=== PATIENT | female | born 1945 | race Caucasian/White ===

== ENCOUNTER 2023-12-22 12:55 | Outpatient (OUT) | payer MEDICARE, OTHER, SELFPAY ==
[2023-12-22 13:43] LABS: Basophils Absolute Auto 0.1 10^3/uL (0.0-0.1); Basophils Percent Auto 0.8 % (0.2-2.0); Eosinophils Absolute Auto 0.2 10^3/uL (0.0-0.7); Eosinophils Percent Auto 1.8 % (0.9-7.0); Hematocrit 42.7 % (36.0-48.0); Hemoglobin 14.2 g/dL (12.0-16.0); Immature Granulocytes Abs Auto 0.02 10^3/uL (0.00-0.03); Immature Granulocytes Pct Auto 0.2 % (0.0-0.5); Lymphocytes Absolute Auto 3.5 10^3/uL (1.2-3.8); Lymphocytes Percent Auto 36.8 % (20.5-60.0); Mean Corpuscular HGB Conc 33.3 g/dL (29.9-35.2); Mean Corpuscular Hemoglobin 29.9 pg (26.7-34.0); Mean Corpuscular Volume 89.9 fL (81.0-99.0); Mean Platelet Volume 10.5 fL (9.5-13.5); Monocytes Absolute Auto 0.6 10^3/uL (0.3-0.8); Monocytes Percent Auto 6.3 % (1.7-12.0); Neutrophils Absolute Auto 5.2 10^3/uL (1.4-6.5); Neutrophils Percent Auto 54.1 % (43.0-75.0); Platelet Count 228 10^3/uL (150-450); Red Blood Count 4.75 10^6/uL (4.20-5.40); Red Cell Distribution Width 12.7 % (11.0-15.0); White Blood Count 9.6 10^3/uL (4.0-11.0)
[2023-12-22 14:02] LABS: Alanine Aminotransferase 37 U/L (14-59); Albumin Globulin Ratio 0.8; Albumin Level 3.6 g/dL (3.4-5.0); Alkaline Phosphatase 74 U/L (46-116); Anion Gap 15.3; Aspartate Amino Transferase 32 U/L (15-37); BUN Creatinine Ratio 12.9; Bilirubin Direct 0.2 mg/dL (0.0-0.2); Bilirubin Total 0.9 mg/dL (0.2-1.0); Calcium 9.3 mg/dL (8.5-10.1); Carbon Dioxide 24.4 mmol/L (21.0-32.0); Chloride 102 mmol/L (98-107); Chol HDL Ratio 5.9; Cholesterol 289 mg/dL (<=200); Estimated GFR (African America >60 (>=60); Estimated GFR (Non-African Ame >60 (>=60); Globulin 4.3 g/dL; Glucose 104 mg/dL (74-106); HDL Cholesterol 49 mg/dL (40-60); Potassium 3.7 mmol/L (3.5-5.1); Sodium 138 mmol/L (136-145); Thyroid Stimulating Hormone 0.938 uIU/mL (0.358-3.740); Total Protein 7.9 g/dL (6.4-8.2); Triglycerides 211 mg/dL (<=150); VLDL CHOLESTEROL 42.2 mg/dL
[2023-12-22 14:11] LABS: Microalbumin Urine Random 1.7 mg/dL (<=30.0)
[2023-12-22 14:19] LABS: Estimated Average Glucose 111 mg/dL; Glycohemoglobin A1C 5.5 % (4.5-6.2)
== END 2023-12-22 12:56 | disposition home or self-care (01) ==
LOC: LAB 13:00
PROVIDERS: PCP Family Medicine; Visit Provider Family Medicine
DX: E78.5 Hyperlipidemia, unspecified (principal); E11.65 Type 2 diabetes mellitus with hyperglycemia; Z79.899 Other long term (current) drug therapy; E66.9 Obesity, unspecified
CPT/HCPCS: 36415; 80048; 80061; 80076; 82043; 83036; 84443; 85025

== ENCOUNTER 2023-12-25 14:00 | Outpatient (OUT) | payer MEDICARE, OTHER, SELFPAY ==
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
--- OUTSIDE RECORDS SUMMARY | 2023-12-25 14:24 | XMS_ITS | CCD ---
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 Patient stated that she has been under a lot of stress lately. Patient stated her son lives with her and recently got in trouble with the law and is incarcerated currently with his hearing scheduled to take place today. Patient stated that due to the legal trouble, his ex- received emergency custody of her grandchildren ages 13 and 14 whom her son has had custody of since . Patient stated that she is currently dealing qith alot, but that her depression medication and therapist are helpful. Patient denied SI or HI. Patient denied any further needs at this time. SW will remain available as needed. Normal [facility] Message from Medicareon Message from Medicare [id number] 1 [id number] 50#[id number] Normal [facility] PT & PTTon 01-22-2023 aPTT Coag (PPP) [Time] 31.6 second(s) Normal 25.1-36.5 [facility] Comment on above: Result Comment: Para meter 15 days - 4 weeks 1 - 5 months 6 - 11 months 1 - 5 years 6 - 10 years 11 - 17 years PTT Mean: 35.4 (27.6-45.6) Mean: 33.5 (24.8-40.7) Mean: 32.4 (25.1-40.7) Mean: 31.6 (24.0-39.2) Mean: 31.6 (26.9-38.7) Mean: 31.0 (24.6-38.4) Pediatric Reference ranges were obtained from a study by Siddhartha Jimenez et al. prepared from 1437 samples obtained at 7 different centers using the same coagulation reagent and instrumentation as [facility]. Currently there are no coagulation studies available worldwide for children to 14 days, and no normal ranges. Heparin therapeutic range (represented by Anti-Factor Xa activity of 0.2 - 0.4 U/mL) corresponds to PTT of 56.6 - 109.0 sec. Performed By: #### 1 [id number], 28658142, 7696120, 4794187, 1932279 ####[facility] [address] [place] [address] INR Coag (PPP) [Relative time] 1.2 {INR} Invalid Interpretation Code [facility] Comment on above: Result Comment: INR results are specifically intended to assess patients stabilized on long-term Anticoagulation therapy suggested INR?s ?Less Intensive Anticoagulation? 2.0 ? 3.0 Conventional Range 3.0 ? 4.5 Performed By: #### 1 3963079, 08471438, 9723282, 9830636, 8221636 ####[facility] [address] [place] [address] PT Coag (PPP) [Time] 13.4 second(s) High 9.4-12.5 [facility] Comment on above: Result Comment: 15 d ays - 4 weeks 1 - 5 months 6 -11 months 1-5 years 6-10 years 11 -17 years Mean: 11.2 (9.5-12.6) Mean: 11.0 (9.7-12.8) Mean: 11.0 (9.8-13.0) Mean: 11.3 (9.9-13.4) Mean: 11.7 (10.0-14.6) Mean: 11.8 (10.0 - 14.1) Pediatric Reference ranges were obtained from a study by Siddhartha Jimenez et al. prepared from 1437 samples obtained at 7 different centers using the same coagulation reagent and instrumentation as [facility]. Currently there are no coagulation studies available worldwide for children to 14 days, and no normal ranges. Performed By: #### 1 6784511, 46009614, 3535252, 3385150, 9257678 ####[facility] [address] [place] [address] eGFRon 01-22-2023 GFR/1.73 sq M.predicted among non-blacks MDRD (S/P/Bld) [Vol rate/Area] 66 mL/min/1.73 m2 Normal >=59 [facility] Comment on above: Order Comment: Order added by Discern Expert. 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 Kidney failure is indicated at less than 15 mL/min/1.73m2. Performed By: #### 1 6166770, 63059046, 5084472, 5991712, 3935842 ####[facility] [address] [place] [address] ABO/Rhon 01-21-2023 ABO/Rh Positive Invalid Interpretation Code [facility] Comment on above: Performed By: #### 1 [id number], 8145723, 10354044, 24899950 ####[facility] [address] [place] [address] ABO/Rh History Checkon 01-21 ABO/Rh History Check Type verified by second s Normal [facility] Comment on above: Performed By: #### 1 5347019, 4257901, 54424244, 43958399 ####[facility] [address] [place] [address] ABO/Rh Retypeon 01-21-2023 ABO/Rh Retype Interp Positive Invalid Interpretation Code [facility] Comment on above: Performed By: #### 1 5450562, 5626390, 1660807, 8635437, 8591291, 3959046 #### [facility] [address] [place] [address] ABSCon 01-21-2023 ABSC Gel Interp Negative Normal [facility] Comment on above: Order Comment: Pt is in CT right now, I will keep checking for her to come back. mlc 01/21/2023 14:24:12 EDT Performed By: #### 1 4973063, 4608177, 97256614, 77185400 ####[facility] [address] [place] [address] Auto Diffon 01-21-2023 Basophils/100 WBC (Bld) 0.4 % Normal 0.0-2.0 [facility] Comment on above: Order Comment: Order added by Discern Expert. Performed By: #### 1 5492406, 9195748, 0610745, 4586820, 3402191, 7779410 #### [facility] [address] [place] [address] Basophils/Leukocytes Auto (Bld) [Pure # fraction] 0.0 E9/L Normal 0.0-0.2 [facility] Comment on above: Order Comment: Order added by Discern Expert. Performed By: #### 1 8992470, 1131689, 3083790, 5055712, 3527587, 5268027 #### [facility] [address] [place] [address] Eosinophils/100 WBC (Bld) 2.0 % Normal 0.0-8.0 [facility] Comment on above: Order Comment: Order added by Discern Expert. Performed By: #### 1 5246234, 9973600, 9304855, 2563851, 7420268, 7402879 #### [facility] [address] [place] [address] Eosinophils/Leukocytes Auto (Bld) [Pure # fraction] 0.2 E9/L Normal 0.0-0.5 [facility] Comment on above: Order Comment: Order added by Discern Expert. Performed By: #### 1 0346543, 7698961, 6023270, 9323672, 5246114, 2338050 #### [facility] [address] [place] [address] Lymphocytes/100 WBC (Bld) 28.2 % Normal 14.0-50.0 [facility] Comment on above: Order Comment: Order added by Discern Expert. Performed By: #### 1 8512675, 4795041, 0995159, 3781840, 3219947, 2994521 #### [facility] [address] [place] [address] Lymphocytes/Leukocytes Auto (Bld) [Pure # fraction] 2.4 E9/L Normal 1.0-4.0 [facility] Comment on above: Order Comment: Order added by Discern Expert. Performed By: #### 1 7101393, 1558312, 1874340, 7468547, 8567352, 3784706 #### [facility] [address] [place] [address] Monocytes/100 WBC (Bld) 7.1 % Normal 4.0-14.0 [facility] Comment on above: Order Comment: Order added by Discern Expert. Performed By: #### 1 5493931, 3106857, 3199454, 0779033, 4087639, 0210998 #### [facility] [address] [place] [address] Monocytes/Leukocytes Auto (Bld) [Pure # fraction] 0.6 E9/L Normal 0.2-1.0 [facility] Comment on above: Order Comment: Order added by May Expert. Performed By: #### 1 3740779, 3121998, 3240376, 0858824, 1785534, 8666038 #### [facility] [address] [place] [address] Neutrophils/100 WBC (Bld) 62.3 % Normal 36.0-75.0 [facility] Comment on above: Order Comment: Order added by May Expert. Performed By: #### 1 3177094, 9986913, 8458709, 5904919, 4525204, 8356496 #### [facility] [address] [place] [address] Neutrophils/Leukocytes Auto (Bld) [Pure # fraction] 5.4 E9/L Normal 2.0-7.5 [facility] Comment on above: Order Comment: Order added by May Expert. Performed By: #### 1 6208109, 4981942, 7268157, 3209517, 1792620, 1868686 #### [facility] [address] [place] [address] Basophils/100 WBC (Bld) 0.9 % Normal 0.0-2.0 [facility] Comment on above: Order Comment: Order Added by May Expert. Performed By: #### 1 0931251, 8302828, 9071829, 4152564, 4326283, 6058921 #### [facility] [address] [place] [address] Basophils/Leukocytes Auto (Bld) [Pure # fraction] 0.1 E9/L Normal 0.0-0.2 [facility] Comment on above: Order Comment: Order Added by May Expert. Performed By: #### 1 7872090, 8570678, 2707950, 2561824, 1188006, 3301098 #### [facility] [address] [place] [address] Eosinophils/100 WBC (Bld) 3.2 % Normal 0.0-8.0 [facility] Comment on above: Order Comment: Order Added by May Expert. Performed By: #### 1 7165806, 4999340, 7439115, 2003405, 1034740, 8039762 #### [facility] [address] [place] [address] Eosinophils/Leukocytes Auto (Bld) [Pure # fraction] 0.2 E9/L Normal 0.0-0.5 [facility] Comment on above: Order Comment: Order Added by May Expert. Performed By: #### 1 7409955, 6416084, 8089804, 5953677, 4130588, 1129266 #### [facility] [address] [place] [address] Lymphocytes/100 WBC (Bld) 41.0 % Normal 14.0-50.0 [facility] Comment on above: Order Comment: Order Added by Discern Expert. Performed By: #### 1 3201700, 3567161, 1082448, 5671039, 3486764, 5226329 #### [facility] [address] [place] [address] Lymphocytes/Leukocytes Auto (Bld) [Pure # fraction] 2.8 E9/L Normal 1.0-4.0 [facility] Comment on above: Order Comment: Order Added by May Expert. Performed By: #### 1 3281595, 2988521, 4883423, 8852083, 1933688, 7892992 #### [facility] [address] [place] [address] Monocytes/100 WBC (Bld) 6.2 % Normal 4.0-14.0 [facility] Comment on above: Order Comment: Order Added by Discern Expert. Performed By: #### 1 2720512, 6593535, 1546032, 4295717, 3928877, 6351929 #### [facility] [address] [place] [address] Monocytes/Leukocytes Auto (Bld) [Pure # fraction] 0.4 E9/L Normal 0.2-1.0 [facility] Comment on above: Order Comment: Order Added by Discern Expert. Performed By: #### 1 1897571, 0007235, 3919414, 6182588, 8723622, 6721179 #### [facility] [address] [place] [address] Neutrophils/100 WBC (Bld) 48.7 % Normal 36.0-75.0 [facility] Comment on above: Order Comment: Order Added by Discern Expert. Performed By: #### 1 6997090, 7894769, 0318374, 6114276, 8284674, 4264759 #### [facility] [address] [place] [address] Neutrophils/Leukocytes Auto (Bld) [Pure # fraction] 3.3 E9/L Normal 2.0-7.5 [facility] Comment on above: Order Comment: Order Added by Discern Expert. Performed By: #### 1 1872956, 1614673, 1831612, 1136791, 2201607, 8467635 #### [facility] [address] [place] [address] BLOOD BANKOrdered By: Ana Paula Rothman on 01-21-2023 ABO/Rh Interp Positive Invalid Interpretation Code [facility] BB Subsection ABSC Gel Interp Negative (01/21/23 3:27 PM) Normal [facility] BB Subsection BMPon 01-21-2023 Creatinine [Mass/Vol] 0.7 mg/dL Normal 0.5-1.3 [facility] Comment on above: Performed By: #### 1 4328778, 3190536, 9402203, 4650209, 0682886, 6332828 #### [facility] [address] [place] [address] Urea nitrogen [Mass/Vol] 8 mg/dL Normal 5-21 [facility] Comment on above: Performed By: #### 1 5451850, 7966195, 4484487, 2913117, 0892939, 2996248 #### [facility] [address] [place] [address] Urea nitrogen/Creatinine [Mass ratio] 11 No Units Normal 10-20 [facility] Comment on above: Performed By: #### 1 4282440, 2695112, 1098185, 3759652, 9079204, 5565017 #### [facility] [address] [place] [address] Anion gap [Moles/Vol] 10 mmol/L Normal 6-16 [facility] Comment on above: Performed By: #### 1 6805967, 0548681, 6885529, 7074165, 4238627, 2265217 #### [facility] [address] [place] [address] Calcium [Mass/Vol] 9.4 mg/dL Normal 8.9-11.1 [facility] Comment on above: Performed By: #### 1 3980331, 1992912, 6713453, 8605951, 0114423, 0555992 #### [facility] [address] [place] [address] Chloride [Moles/Vol] 106 mmol/L Normal 101-111 [facility] Comment on above: Performed By: #### 1 4810528, 7807475, 7013962, 7755529, 6501609, 4824603 #### [facility] [address] [place] [address] CO2 [Moles/Vol] 24 mmol/L Normal 21-31 [facility] Comment on above: Performed By: #### 1 1751966, 1474443, 9835976, 5395574, 5343424, 5026571 #### [facility] [address] [place] [address] Glucose [Mass/Vol] 113 mg/dL Normal 55-199 [facility] Comment on above: Result Comment: If t his glucose result represents a fasting glucose, interpretation should refer to the following reference range: 55-99 mg/dL Performed By: #### 1 2828490, 1602127, 1342653, 2137134, 6311620, 9030655 #### [facility] [address] [place] [address] Potassium [Moles/Vol] 4.0 mmol/L Normal 3.5-5.3 [facility] Comment on above: Performed By: #### 1 0177019, 0123611, 4954544, 7517166, 5895260, 1752397 #### [facility] [address] [place] [address] Sodium [Moles/Vol] 136 mmol/L Normal 135-145 [facility] Comment on above: Performed By: #### 1 9940753, 1146573, 9329925, 7123107, 0390542, 4969223 #### [facility] [address] [place] [address] Anion gap [Moles/Vol] 11 mmol/L Normal 6-16 [facility] Comment on above: Performed By: #### 1 7777076, 6581925, 3334388, 8689212, 7092115, 1865021 #### [facility] [address] [place] [address] Calcium [Mass/Vol] 8.9 mg/dL Normal 8.9-11.1 [facility] Comment on above: Performed By: #### 1 8843210, 8962484, 7353824, 8763565, 9437851, 4019807 #### [facility] [address] [place] [address] Chloride [Moles/Vol] 108 mmol/L Normal 101-111 [facility] Comment on above: Performed By: #### 1 7347820, 8310257, 3441587, 9257091, 5744477, 0311049 #### [facility] [address] [place] [address] CO2 [Moles/Vol] 22 mmol/L Normal 21-31 [facility] Comment on above: Performed By: #### 1 2505957, 9373468, 2590648, 8653210, 6030282, 6751059 #### [facility] [address] [place] [address] Creatinine [Mass/Vol] 0.7 mg/dL Normal 0.5-1.3 [facility] Comment on above: Performed By: #### 1 1339777, 4719562, 7286517, 4435508, 7453844, 8346155 #### [facility] [address] [place] [address] Glucose [Mass/Vol] 101 mg/dL Normal 55-199 [facility] Comment on above: Result Comment: If t his glucose result represents a fasting glucose, interpretation should refer to the following reference range: 55-99 mg/dL Performed By: #### 1 2019226, 1080644, 4031559, 6046243, 1760350, 0926467 #### [facility] [address] [place] [address] Potassium [Moles/Vol] 3.7 mmol/L Normal 3.5-5.3 [facility] Comment on above: Performed By: #### 1 8784291, 6381278, 2140897, 4397949, 8342777, 7856479 #### [facility] [address] [place] [address] Sodium [Moles/Vol] 137 mmol/L Normal 135-145 [facility] Comment on above: Performed By: #### 1 7012478, 9887974, 9096748, 5141346, 7036809, 6400679 #### [facility] [address] [place] [address] Urea nitrogen [Mass/Vol] 9 mg/dL Normal 5-21 [facility] Comment on above: Performed By: #### 1 9594966, 8587379, 6339329, 3782013, 2722386, 3745215 #### [facility] [address] [place] [address] Urea nitrogen/Creatinine [Mass ratio] 13 No Units Normal 10-20 [facility] Comment on above: Performed By: #### 1 6803515, 8892450, 3004930, 6233997, 1176935, 1616502 #### [facility] [address] [place] [id number] Blood Bank ID#on 01-21-2023 BBID# [id number] Invalid Interpretation Code [facility] Comment on above: Performed By: #### 1 4193310, 5694668, 83441667, 08074194 ####[facility] [address] [place] [address] CBC w/ Auto Diffon Erythrocyte distribution width (RBC) [Ratio] 13.2 % Normal 10.9-14.2 [facility] Comment on above: Performed By: #### 1 5479834, 3532542, 0460021, 8623890, 9333552, 9634492 #### [facility] [address] [place] [address] Hematocrit (Bld) [Volume fraction] 41.0 % Normal 34.0-46.0 [facility] Comment on above: Performed By: #### 1 8308001, 1407253, 4883820, 2082874, 0737703, 9927041 #### [facility] [address] [place] [address] Hemoglobin (Bld) [Mass/Vol] 13.6 g/dL Normal 12.0-16.0 [facility] Comment on above: Performed By: #### 1 5083290, 3973212, 1225992, 2630509, 3149970, 3007623 #### [facility] [address] [place] [address] MCH (RBC) [Entitic mass] 29.8 pg Normal 27.0-34.0 [facility] Comment on above: Performed By: #### 1 5726683, 3134270, 9828798, 1953450, 1676904, 5208196 #### [facility] [address] [place] [address] MCHC (RBC) [Mass/Vol] 33.1 g/dL Normal 31.4-36.0 [facility] Comment on above: Performed By: #### 1 0465424, 1990379, 5081712, 0135221, 8482554, 7688985 #### [facility] [address] [place] [address] MCV (RBC) [Entitic vol] 90.0 fL Normal 80.0-100.0 [facility] Comment on above: Performed By: #### 1 9520073, 7057714, 4784551, 6437130, 7317194, 3951287 #### [facility] [address] [place] [address] Platelet mean volume (Bld) [Entitic vol] 8.8 fL Normal 6.4-10.8 [facility] Comment on above: Performed By: #### 1 5580530, 9919896, 6288858, 8711944, 9653552, 7124948 #### [facility] [address] [place] [address] Platelets (Bld) [#/Vol] 187.0 E9/L Normal 150.0-500.0 [facility] Comment on above: Performed By: #### 1 8754184, 5606744, 4615256, 1477092, 5206502, 9906119 #### [facility] [address] [place] [address] RBC (Bld) [#/Vol] 4.6 E12/L Normal 4.3-5.9 [facility] Comment on above: Performed By: #### 1 4284848, 9752002, 5120369, 6297688, 4797160, 1298067 #### [facility] [address] [place] [address] WBC corrected for nucl RBC Auto (Bld) [#/Vol] 8.6 E9/L Normal 4.0-11.0 [facility] Comment on above: Result Comment: Slid e reviewed by TLP. Performed By: #### 1 8097382, 3728534, 0514136, 2217273, 1734833, 1575572 #### [facility] [address] [place] [address] Erythrocyte distribution width (RBC) [Ratio] 13.3 % Normal 10.9-14.2 [facility] Comment on above: Performed By: #### 1 0722747, 3662616, 2424460, 4412747, 5335176, 8906620 #### [facility] [address] [place] [address] Hematocrit (Bld) [Volume fraction] 40.0 % Normal 34.0-46.0 [facility] Comment on above: Performed By: #### 1 1808436, 0267786, 9996614, 8788459, 8954801, 7872345 #### [facility] [address] [place] [address] Hemoglobin (Bld) [Mass/Vol] 13.3 g/dL Normal 12.0-16.0 [facility] Comment on above: Performed By: #### 1 4155160, 1664769, 5790075, 0668089, 7204744, 8678656 #### [facility] [address] [place] [address] MCH (RBC) [Entitic mass] 29.6 pg Normal 27.0-34.0 [facility] Comment on above: Performed By: #### 1 0016295, 9358024, 8955753, 6546398, 5302979, 3095408 #### [facility] [address] [place] [address] MCHC (RBC) [Mass/Vol] 33.2 g/dL Normal 31.4-36.0 [facility] Comment on above: Performed By: #### 1 0483452, 6279817, 4344095, 8834457, 7670532, 8481596 #### [facility] [address] [place] [address] MCV (RBC) [Entitic vol] 89.0 fL Normal 80.0-100.0 [facility] Comment on above: Performed By: #### 1 6235555, 1880866, 0504380, 8934619, 1682478, 1749198 #### [facility] [address] [place] [address] Platelet mean volume (Bld) [Entitic vol] 9.2 fL Normal 6.4-10.8 [facility] Comment on above: Performed By: #### 1 6336570, 5241251, 4798062, 2571337, 9306571, 7952635 #### [facility] [address] [place] [address] Platelets (Bld) [#/Vol] 201.0 E9/L Normal 150.0-500.0 [facility] Comment on above: Performed By: #### 1 0582916, 8231098, 8368050, 0816870, 3139813, 9579439 #### [facility] [address] [place] [address] RBC (Bld) [#/Vol] 4.5 E12/L Normal 4.3-5.9 [facility] Comment on above: Performed By: #### 1 [id number] #### [facility] [address] [place] [id number] WBC corrected for nucl RBC Auto (Bld) [#/Vol] 6.7 E9/L Normal 4.0-11.0 [facility] Comment on above: Performed By: #### 1 [id number], [id number] #### [facility] [address] [place] [id number] CHEMISTRYOrdered By: SYSTEM SYSTEM on 01-21-2023 Amphetamines Screen method >1000 ng/mL Ql (U) Negative 6 (01/21/23 4:06 PM) Normal Negative [facility] Comment on above: Interpretive Data: N egative Cutoff: <1000 ng/mL Barbiturates Screen Ql (U) Negative 7 (01/21/23 4:06 PM) Normal Negative [facility] Comment on above: Interpretive Data: N egative Cutoff: <200 ng/mL Benzodiazepines Ql (U) Negative 1 (01/21/23 4:06 PM) Normal Negative [facility] Comment on above: Interpretive Data: N egative Cutoff: <200 ng/mL Cocaine Ql (U) Negative 2 (01/21/23 4:06 PM) Normal Negative [facility] Comment on above: Interpretive Data: N egative Cutoff: <300 ng/mL Opiates Screen Ql (U) Negative 3 (01/21/23 4:06 PM) Normal Negative [facility] Comment on above: Interpretive Data: N egative Cutoff: <300 ng/mL Phencyclidine Screen method >25 ng/mL Ql (U) Negative 4 (01/21/23 4:06 PM) Normal Negative [facility] Comment on above: Interpretive Data: N egative Cutoff: <25 ng/mL These drug screen results are to be used for medical (i.e., treatment) purposes only. Unconfirmed drug screening results must not be used for non-medical purposes (e.g., employment testing, legal testing). Tetrahydrocannabinol Screen method >50 ng/mL Ql (U) Negative 5 (01/21/23 4:06 PM) Normal Negative [facility] Comment on above: Interpretive Data: N egative Cutoff: <50 ng/mL Albumin [Mass/Vol] 4.0 g/dL Normal 3.3 - 5.0 gm/dL [facility] Albumin/Globulin [Mass ratio] 1.0 {ratio} Low 1.1 - 2.2 [facility] ALP [Catalytic activity/Vol] 61 [iU]/d Normal 21 - 98 Int._Unit/L [facility] ALT No additional P-5'-P [Catalytic activity/Vol] 32 [iU]/d Normal 6 - 46 Int._Unit/L [facility] Anion gap [Moles/Vol] 10 mmol/L Normal 6 - 16 mEq/L [facility] AST [Catalytic activity/Vol] 44 [iU]/d High 5 - 43 Int._Unit/L [facility] Bilirubin [Mass/Vol] 0.8 mg/dL Normal 0.0 - 1 .1 mg/dL [facility] Bilirubin.direct [Mass/Vol] 0.2 mg/dL Normal 0.1 - 0.4 mg/dL [facility] Bilirubin.indirect [Mass or moles/Vol] 0.6 mg/dL Normal 0.1 - 0.9 mg/dL [facility] Calcium [Mass/Vol] 9.4 mg/dL Normal 8.9 - 11. 1 mg/dL [facility] Chloride [Moles/Vol] 106 mmol/L Normal 101 - 1 11 mmol/L [facility] CO2 [Moles/Vol] 24 mmol/L Normal 21 - 31 mmol/L [facility] Creatinine [Mass/Vol] 0.7 mg/dL Normal 0.5 - 1.3 mg/dL [facility] Ethanol [Mass/Vol] mg/dL Normal <=7mg/dL [facility] R emisol GFR/1.73 sq M.predicted among non-blacks MDRD (S/P/Bld) [Vol rate/Area] 90 mL/min/1.73 m2 Normal >=59mL/min/[address] [facility] Chem S Comment on above: Interpretive Data: C hronic kidney disease could be indicated at eGFR's of less than 60 mL/min/1.73m2. Kidney failure is indicated at less than 15 mL/min/1.73m2. Globulin (S) [Mass/Vol] 3.8 g/dL Normal 1.4 - 4.0 gm/dL [facility] Glucose [Mass/Vol] 113 mg/dL Normal 55 - 199 mg/dL [facility] Comment on above: Interpretive Data: I f this glucose result represents a fasting glucose, interpretation should refer to the following reference range: 55-99 mg/dL Lactate [Mass/Vol] 2.5 mmol/L High 0.5 - 2.2 mmol/L [facility] Lipase [Catalytic activity/Vol] 35 U/L Normal 13 - 58 unit/L [facility] Magnesium [Mass/Vol] 2.0 mg/dL Normal 1.3 - 2 .4 mg/dL [facility] Potassium [Moles/Vol] 4.0 mmol/L Normal 3.5 - 5.3 mmol/L [facility] Protein [Mass/Vol] 7.8 g/dL Normal 6.0 - 7.8 gm/dL [facility] Sodium [Moles/Vol] 136 mmol/L Normal 135 - 145 mmol/L [facility] Troponin I.cardiac [Mass/Vol] 12.60 pg/mL Normal 10.10 - 27.10 pg/mL [facility] Comment on above: Interpretive Data: T he 95% CI (Confidence Interval) PPV (Positive Predictive Value) for myocardial infarction in females is 38 pg/mL, in males 51 pg/mL. The results should be used in conjunction with clinical conditions of myocardial infarction. (Access High Sensitivity Troponin I Instructions For Use, Rene Angelita, October 2017) Urea nitrogen [Mass/Vol] 8 mg/dL Normal 5 - 21 mg/d L [facility] Urea nitrogen/Creatinine [Mass ratio] 11 mg/mg Normal 10 - 20 [facility] COAGULATIONOrdered By: Ilana Christensen on 01-21-2023 aPTT Coag (PPP) [Time] 29.1 s Normal 25.1 - 36.5 second(s) [facility] Auto Coag Comment on above: Interpretive Data: P arameter 15 days - 4 weeks 1 - 5 months 6 - 11 months 1 - 5 years 6 - 10 years 11 - 17 years PTT Mean: 35.4 (27.6-45.6) Mean: 33.5 (24.8-40.7) Mean: 32.4 (25.1-40.7) Mean: 31.6 (24.0-39.2) Mean: 31.6 (26.9-38.7) Mean: 31.0 (24.6-38.4) Pediatric Reference ranges were obtained from a study by Siddhartha Jimenez et al. prepared from 1437 samples obtained at 7 different centers using the same coagulation reagent and instrumentation as [facility]. Currently there are no coagulation studies available worldwide for children to 14 days, and no normal ranges. Heparin therapeutic range (represented by Anti-Factor Xa activity of 0.2 - 0.4 U/mL) corresponds to PTT of 56.6 - 109.0 sec. INR Coag (PPP) [Relative time] 1.1 {INR} Invalid Interpretation Code [facility] Comment on above: Interpretive Data: I NR results are specifically intended to assess patients stabilized on long-term Anticoagulation therapy suggested INR s Less Intensive Anticoagulation 2.0 3.0 Conventional Range 3.0 4.5 PT Coag (PPP) [Time] 12.4 s Normal 9.4 - 1 2.5 second(s) [facility] Comment on above: Interpretive Data: 1 5 days - 4 weeks 1 - 5 months 6 -11 months 1 5 years 6 10 years 11 -17 years Mean: 11.2 (9.5 12.6) Mean: 11.0 (9.7 12.8) Mean: 11.0 (9.8 13.0) Mean: 11.3 (9.9 13.4) Mean: 11.7 (10.0 14.6) Mean: 11.8 (10.0 - 14.1) Pediatric Reference ranges were obtained from a study by yuriy Geronimo al. prepared from 1437 samples obtained at 7 different centers using the same coagulation reagent and instrumentation as [facility]. Currently there are no coagulation studies available worldwide for children to 14 days, and no normal ranges. CT Abdomen/Pelvis w/o Contra ston 01-21-2023 CT Abdomen/Pelvis w/o Contrast Exam Date/Time: 01/21/2023 14:47 EDT Reason for Exam: ABDOMINAL TRAUMA;Trauma Report Please refer to the report of CT scan of the chest on 01/21/2023. Ordering Provider: Rico Harrell FINAL REPORT Dictated: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 cataracts, Colonoscopy, History of gastric bypass, Knee arthroplasty, Rotator cuff arthropathy of right shoulder, Tubal ligation. Medications CeleXA 10 mg Tab, 10 mg= 1 tab(s), Oral, Daily cetirizine, 10 mg, Oral, Daily Fish Oil 500 mg oral capsule, 500 mg, Oral, Daily Flonase, 2 spray(s), Nasal, Daily, PRN metformin 500 mg ER Tab, 500 mg= 1 tab(s), Oral, Daily Pantoprazole [address] Tab, 40 mg= 1 tab(s), Oral, BID Probiotic 10 Ultra Strength, 1 cap(s), Oral, Daily Slow-Mag, 2 tab(s), Oral, Daily Vitamin D3, 20 mcg, Oral, Daily Allergies Benadryl (Hives) Cipro (Hives) NSAIDs (Stomach pain) Neosporin (Rash) Percocet (Edema of face) erythromycin (Hives) hydrocortisone (Hives) penicillin (Hives) povidone iodine topical (Rash) Social History Alcohol - Denies Alcohol Use, 04/01/2020 Substance Abuse - Denies Substance Abuse, 04/01/2020 Tobacco - Denies Tobacco Use, 04/01/2020 Never (less than 100 in lifetime) Tobacco Use:. Never Smokeless Tobacco Use:., 05/30/2022 Family History Arthritis: Mother and Father. Diabetes mellitus: Mother and Father. Heart failure: Mother. High blood pressure: Mother and Father. High cholesterol: Mother and Father. Primary malignant neoplasm of colon: Mother. Renal failure syndrome: Father. Immunizations Vaccine Date Status Comments influenza virus vaccine, inactivated - Not Given Patient Refuses SARS-CoV-2 (COVID-19) mRNA BNT-162b2 vax 06/23/2020 Recorded SARS-CoV-2 (COVID-19) mRNA BNT-162b2 vax 06/04/2020 Recorded 2022-05-13: [id number] [facility] Comment on above: Result Comment: Elec tronically Signed By: GERMAN WATERMAN, Zenon Jhaveri\Date and Time Signed: 07/09/22 18:38 EDT Reminderson 07-09-2022 Reminders -- From: Mary Garcia LPN To: GSN - Clinical; Sent: 07/09/2022 11:26:36 EDT Show up: 06/07/2025 07:00:00 EDT Subject: colonoscopy recall Due Date/Time: 07/08/2025 07:00:00 EDT Reminder/Recall Patient is due for colonoscopy 07/08/2025. [facility] Coding Summary.on 07-08-2022 Coding Summary. CD:[id number] bWw+PGhlYWQ+IK7PDVG bX72jxLLydO6lW5PRGU lOSywgQVBQTElOSyIgb xTiDP9zwZTjFHZq IC8+DH6ePGNjNxychCO qv4Z9dMY7S58bwr0qWH yrxIL8ITMjEmCgbrtuz 1ojbIh8KPqcGdsvTqKj SNZquT31BDH0aW80So0 8xARpyGOnx7nzhQz7Hn TfGWHjOTT7uDynWCgju 8HeUIBfK52pzRMiw6W2 IGNvbGxhcHNlOyBlbXB 4rM3fOFjaclivv2imef nwPsb4ft54rUQwc7X5n BS1H8KxbrY7SPIvuHGo TeioiOIYcL4ntlykf1i ghgxcXsDvBFEjEPo7OV d4NHTzpWwtArSmYS28C WN9ELNcwtLsY0VvGNRo fAoeDfN5d2C3Io9II7H EKwcrI0HNCAXXDYrafN Q+HV88co83Q9LoRzdgH tw2QCQjQIH8fDW7eU3q SLTuEMhat9H5iGT6K2D krgDfxn0xz8rpGKZeAO alH01ogWHzi3C1OVKfi BQ2MLSvkJjeBiUcoM11 Oyc+CBKmuOauf6GdVjg wx2cyo2azrBf8VtlzLJ JlivYjuNdqKYZ6w9ZjU j1aWAIetZS6qEQ8bZ6y TaDnOlI7LHhaO884KbY pvSQfShjcG24pU2EorR A+ASSfSem0ODVcrPubB X9aC8ImFXZkanurrNKu lTnfNP9hAWWtdrjlPWB lxF2lRWDdQ0a7PqGbFl T8BVfdX0NpSVRbjxrrQ q15yR6oXlOgMeR4BPgk H0BhmyW2WGLpiGPbUUy kTHQ6Y49yn1E0XFTsJG FmGWY3hDP3yJ5ofLnzp jogbGVmdDsgdmVydGlj HStyJYrmA699FISptQz nPkNvZGluZyBEYXRlOi AgMDQvMTcvMjAyMzwvd GQ+ZMHvBJF5lWduWICa aXFjYYaaGy9gbOnrbZh cYH3oOVPhqxcuKIDafO 5nDWXkrDZsfNndGN9pB MRqzlpom996CwUbOWC9 VCJzlCJfO7MwjR2lObK sGGGmRUIyA9KgkQCqBD tkT299OQgkJkH1XRMsl jHgJ1DsJSAqcTpsAfI2 h8P6Bl3Kd8YzrhizP8W naOGpQaWgBrgdODw2L5 RkPjwvdHI+SU32LFBsD J32YGb9HTG9aSljZPry ZXGxJ7ZspV6yBfWzDFX kZGRkOyc+PHRhYmxlIH dpZHRoPScxMDAlJyBzd RzwHU2cRx5rUSTeHGVa tQjsaZKfNiTbn4bvZTT uWGosYQ5jpYavP0PzqC L1YZHxh7d5Xe37N51uY 3JvdXA+NCGrcWO1aZE5 iP3hPeKyHzD4UKtnA43 1QeFjrVRiGneqj4jwu8 plaLr4VxU2HBFbskTve IvtDRR4b7KiLa68P62i IHdpZHRoPSIxNSUiIHZ mzMrtnv9voY0sQj4+PG GzbEV9vZN5kM9vCyYiE gN5LCbiO506YsQpoLSp Cftxu8mfp3rnxNx0PiD fVDAfzlQljJvzNEZ9v7 WfNl67M3IamVtdd1SxW pp6an06bIAvu2C5fFG8 U7PfRYQazqszdBNskHo uKE3kENWeffkgVXVzxH 9yNXUaW5o0PjUdBbG4W XmnI6DmizZ3WWZliYDq FYBdlAKBkI6cztnkv0r grmwjGhPkXVCiCVr7KU q3CTAvjNboJdSjOQO4Z hL2JTY3jMYnxC8ieGth vfscvT8oSok+QDX2pSC hbLBECC8uFjpbdPZ+PH EzSJC2tQanMKmiFCIhd V5iYOSfF7f8QgZeIyP9 VRmqS7NdauN9SUSxeSX rTVScyBLSnC4udmzuy7 nvdpyyYcDoMIKnYMq8M Kj4DIXglTjvUoOuARG7 WtF5SZF5sLNnsK7btDu qafnvfS8cIfq+QmlydG cwYSB6FZr0N3WhEdz8E DIqnSjsZY3oaUKvUOcs Qa2anMayuQcoGV0mSXB orcied635QwElh4qfEW OnpQBnPSntOKB0T60hl 2C1WZNrBWCxHMU1tFY8 fT4ljDlyaoaqvVQreOo gdmVydGljYWwtYWxpZ2 93WFOfgEtpOvRvIYr0W 4WaRth9SKVcgYdvSY1y wWApYDswZn1laYpmlMz nYQ5mNNMedpijd202Sq Puv7bnGMYpiYKuEPyrD EQ1E82vq9I7ESGfQNKf CCV7qUX5bV7rkBabgpa gbGVmdDsgdmVydGljYW teUXxbY805OMUxcOcnU oZyzNt4E3QwCwb2AMOg pEhjSK5haRDeVYugPm0 zwJaybPteFF9gMDGkjj ipc669XsUbx0ykBDGhl VRxLNoaQEA9X48sm2G4 SDRtMBFhWFD3bRH3hW9 hbGlnbjogbGVmdDsgdm MakJedYHevCIgaM946V HRvcDsnPlBhdGllbnQg DHbaBQd6M6ZyQagsrBP +HC34FLRkWW13fKXgnW Zhd2weqVg3FmVlJQLbZ WZ9qFvyLLcoe9DiQVPy R22dqEKsw1K4XMXhoGc xsSZbVoTzmSK3gC6aEJ ggbttzx3tiwmtdGvhpg 4vtoe28sI33N87kEGih ZHRoPSIzMCUiIHZhbGl xoe8jiT7uIx6+PGNvbC O3aVE6vQ3pBQOlCgQ8H LnsT091BqHxpHGmUnkj i2evb9bujCm7HuN1WPW vfcPuqMbgSIG7q8CfQf 72Y83pAFbuUABqJLJqS AAjPLDbfTnwpe9scB2s Ii8+JAWgaXH2bGX8wG1 bCzHqPsC2HApzS180Zk CmnDJfOmprB30oZ8Tpv XA+ACLsFwa1WCJepEot IO0nrNGxUGftDs2dMWB 1YoDqPsCvCYfdQ2IoMO FtnngvsumepAM8KSZyQ SOlfF26Rb3beKpdVHVz sDIRcC8rwtoqu7bljed oTxAcCTZfDEo4WAx4GQ CphCifMzOoFSQ7GmO5X YT8xJXuaO3cuNkodnvh qA8zK4TdTKXeghezFi2 1bE4oJvDbYqJ0LVedPj c+G0yQX0nXHfyzU4CTY UggRTwvdGQ+PHRkIHN0 kThcFZbcCXEepR9vEKG oG4o1DqQtMtU5QDceM7 CpQFLyftrdXc56wM9kI gPiTaG4NCjwW5VolcS5 GWCcoNOtCUlmVLV0H78 kd9C8QHXsHQGmKXF8yH D7bQ1egEnifqvyhGJsh DsgdmVydGljYWwtYWxp H566HKStrUeyImYnRfG 9PpD2AEU1R3VdFnk9YN EgpKbbLV5xdZHmJRclO y0rdNjvySjqSU5hGCWr odeiDCFgsM9jWKDchUG gbKxkTO6lEQGjtzwyd6 47ScGuYGI1TCEoaOCiU 3SwdR4tAkJmJPNqUERm J9VeqOSdPGhcI099CCk gTwW4VGKqutZuN1HsYZ LuoGbwWgF0j3W0Hq00G iBZZWFyczwvdGQ+PHRk JHQ2kJhnFPiqQVDsyE4 nZQOqM7u6KyUhLjX6XQ xkK4YoIBKxvvgzFe92y B7uQqDsWwD5KDsiB3Ye hvC7POQyyOGvOXfgYGH 6E13ey6W9FJVeJKUuNU Q6bXP1dN5paHazdtlal GVmdDsgdmVydGljYWwt RUdrM180XADwfHoiFrA lbWFsZTwvdGQ+PHRkIH W0wKejKLmpLSWrlJ9oP QKcQ5m8TxTtThC9IEzq E1XbSTAjbcxeDx22pJ9 sCwVnVvM9OJtcY3Ashx B4LGXxnQHnNWagOUI8K 78kv6P0YTTrFKExBYT1 mVO8yD4avHcnmpcddGX mdDsgdmVydGljYWwtYW qpE387ZLGumGdkMs24o XPwfPacdqI2E3VlIhwu dHI+WC82QRZoFR94zQR ozVHsl6zcoNj3IgQsRD CfPFK6hUswUUnxi8QuU HIkO78soBYfp2H3JZLn mClroLAyWvMtjRY0pI5 mFZgbgvpla8fdwaicNy zmg8bydv78aO36V94aH HdpZHRoPSIzMCUiIHZh xCrfgj3aaI2pDz9+PGN qmKW2eSW5nL0jLnRyAo I0SFcvV912UfWdsBNqG dhef4wci5yymHu0CgPh ZKUlyqBkuNmlKPZ8z8P sNm14O43zEAhtYGZnDQ SuORXwMHFphZfiaz9np G9wIi8+EL4wv2nokn06 kI64zKI+GWHrQRP9rNq sZDviUNGkrY3mGUbyIt I7UEKhBzVhsO75vODgO BiwGh6odNhscXjnOK5o CXEfjtcyi950PhLaf5g rZFUmyNEaWBtgJAH6U2 6qd5O6XNZgDUSuDOS4w PT5lP7cyZzqogciuHDa dDsgdmVydGljYWwtYWx aC520RXQihEenYbTwvF GhL9xfpiCLRM9pNwxxn GQ+SETaTQW0aXtqPOfu NEXbvK5qPDKeQ2i8IzZ aEbU4EOazZ0KrsvS2AA EvdLCfCIBciOMQwX9mx rhjg9yupaouHxRmFDMs WQg8LZj9UEJrbMxjItP iEVG4ToT5CLZ8gPWjcM 1bzXcrrruenH8yBno+R klOOjwvdGQ+PHRkIHN0 vCfoKJxjXZRuyY2hQDT kX2x2UzVqNpI4REtvU1 HnfiJ4ZWTcrIAbFQBfh INJpU6aekzdj1toxqvv DnRiNDLfKTm4XOl8SLL qwFxqJnVtSGA2OiC5EP I0xYUtmG8upOtikfkwd G9wOyc+TVJOOjwvdGQ+ STRbAUG8bHajLBjiJOA btZ5sKKCcX1e0VlOgFw J7APokB5SuhmV5XVIrp MJpHQNpkGCOqA5crkry m4bpzbzfXtIyHPHbTOk 4ZHw0OLCeyAqkNyUdDG A2YbN6MPO5bWVmlJ5le JoieadajN1pLxu+UGF5 MAN5UG64OR30V4GiAwp vdGFibGU+PHRhYmxlIH dpZHRoPScxMDAlJyBzd LdoEO8nZv0xVIJbLJIc bGxhcHNl (more content not included)... [facility] Consenton 07-05-2022 Consent [id number] 365#[id number]:[id number] [facility] Discharge Instructionson Discharge Instructions [id number]#[id number]:127 [facility] Main OR Intraoperative Recor don 07-05-2022 Main OR Intraoperative Record IntraOp Document Type FT Summary Primary Physician: Zenon PORTER MD Finalized Date/Time: 07/05/22 14:25:20 Pt. Name: MARGY PULIDO/Sex: 1945 Female Med Rec #: [id number] Physician: Zenon PORTER MD Financial #: [id number] Pt. Type: O Room/Bed: / Admit/Disch: 07/04/22 06:57:48 - 07/04/22 23:59:59 Institution: Case Times FT Entry 1 Patient Times In Room 07/04/22 08:08:00 Out Room 07/04/22 08:32:00 Procedure Times Start 07/04/22 08:14:00 Stop 07/04/22 08:28:00 Anesthesia Times Start 07/04/22 08:08:00 Stop 07/04/22 08:32:00 Time at [facility] 07/04/22 08:20:00 Last Modified By: Husam HINOJOSA, Luba Dunbar 07/04/22 08:32:07 General Comments: 07/05/22 chart open to review and send charges. eddie garza rn Case Attendance FT Entry 1 Entry 2 Entry 3 Case Attendee Eric Matias CRNA, MD, Luba Ratliff RN Role Performed Anesthesiologist Surgeon - Primary Commercial [employer] Professional - Primary Infantry Senior Sergeant Time In 07/04/22 08:08:00 07/04/22 08:08:00 07/04/22 08:08:00 Time Out 07/04/22 08:32:00 07/04/22 08:32:00 07/04/22 08:32:00 Procedure COLONOSCOPY(.) COLONOSCOPY(.) COLONOSCOPY(.) Comments Last Modified By: Luba Weiner RN, RN, Luba Sellers RN 07/04/22 08:32:08 07/04/22 08:32:08 07/04/22 08:32:08 Entry 4 Case Attendee Destiny Jimenez Role Performed Scrub - Primary Time In 07/04/22 08:08:00 Time Out 07/04/22 08:32:00 Procedure COLONOSCOPY(.) Comments Last Modified By: Luba Weiner RN 07/04/22 08:32:08 Perioperative Protocols FT Pre-Care Text: Implements protective measures prior to operative or invasive procedure, confirms identity before the operative or invasive procedure, verifies operative procedure, surgical site, and laterality Entry 1 Procedure(s) COLONOSCOPY(.) Patient Identity Birthday, ID Band Verified (select at Check, Patient least 2): Participation Consents / H and P Anesthesia Consent, Operative Site N/A Verified HandP, Surgery/Procedure Marking Verified Consent Surgical Site Yes Laterality Verified n/a Verified Procedure Verified Yes Correct Patient Yes Position Verified Availability Equipment, Medication Prep Dry n/a Verified (If Applicable) PreOp Antibiotic No Time Out rEic Matias CRNA, Given Participants Zenon PORTER MD, Crosby RN, Tony Coon Micala E Time Out Complete 07/04/22 08:13:00 Outcomes Met? Yes Last Modified By: Luba Weiner RN 07/04/22 08:13:29 Post-Care Text: The patient is free from signs and symptoms of injury caused by extraneous objects Allergy Information FT Pre-Care Text: Verifies allergies Entry 1 Allergies Reviewed? Yes Allergies Reviewed Self/Patient With Outcomes Met? Yes Last Modified By: Luba Weiner RN 07/04/22 07:17:41 Post-Care Text: The patient received appropriate medication(s) safely administered during the perioperative period Surgical Procedures FT Entry 1 Procedure Description Procedure COLONOSCOPY Modifiers . Surgeon Description COLONOSCOPY WITH CECAL BIOPSY NEAR APPENDICEAL ORIFICE Primary Procedure Yes Primary Surgeon Zenon PORTER MD Start 07/04/22 08:14:00 Stop 07/04/22 08:28:00 Anesthesia Type General Surgical Service General Wound Class 2 - Clean-Contaminated Last Modified By: Luba Weiner RN 07/04/22 08:29:56 General Case Data FT Pre-Care Text: Classifies surgical wound, implements aseptic technique, initiates traffic control Entry 1 Case Information OR ENDO 2 FT Case Level Level 2 Wound Class 2 - Clean-Contaminated Specialty General ASA Class 3 Preop Diagnosis RECTAL BLEEDING CHANGE Postop Same As Preop No IN BOWEL HABITS Postop Diagnosis RECTAL BLEEDING CHANGE Outcomes Met? Yes IN BOWEL HABITS, DIVERTICULOSIS, CECAL LESION AT APPENDICEAL ORIFICE Last Modified By: Luba Weiner RN 07/04/22 08:29:31 Post-Care Text: The patient is free from signs and symptoms of infection Skin Assessment (Pre Procedure) FT Pre-Care Text: Implements protective measures to prevent skin/ tissue injury due to thermal or mechanical sources Evaluates for signs and symptoms of physical injury to skin and tissue Entry 1 Skin Integrity Unable to Visualize Skin Abnormality No Outcomes Met? Yes Last Modified By: Luba Weiner RN 07/04/22 08:13:42 Post-Care Text: The patient is free from signs and symptoms of injury caused by extraneous objects Patient Positioning FT Pre-Care Text: Identifies physical alterations that require additional precautions for procedure-specific positioning, verifies presence of prosthetics or corrective devices, positions the patient, evaluates the patient for signs and symptoms of injury as a result of positioning Entry 1 Procedure COLONOSCOPY(.) Body Position Lateral, right side up Feet Uncrossed? Yes Left Arm Position Resting at Side Right Arm Position Resting at Side Left Leg Position Extended Right Leg Position Extended Positioning Dev (more content not included)... [facility] Postoperative Documentson Postoperative Documents [id number]#[id number]:127 [facility] CHEMISTRYOrdered By: Lab ROP User on 07-04-2022 Glucose [Mass/Vol] 103 mg/dL High 55 - 99 mg/dL [facility] POC Subsection Comment on above: Result Comment: Leydi bates RN/ POC Device SN [id number] Invalid Interpretation Code [facility] POC Subsection POC User ID [id number] Invalid Interpretation Code [facility] POC Subsection POC Username [email or web address] [email or web address] Invalid Interpretation Code [facility] POC Subsection Capillary Glucose POCon 06-22 Glucose [Mass/Vol] 103 mg/dL High 55-99 [facility] Comment on above: Result Comment: Leydi bates RN/ Performed By: #### 2 [id number] #### [facility] [address] [place] [address] Colonoscopy Procedure Report on 07-04-2022 Colonoscopy Procedure Report Patient: MARGY PULIDO Age: 77 years Sex: Female : 1945 Associated Diagnoses: None Author: Zenon PORTER MD Pre-Procedure Procedure Date 07/04/2022 08:30:00 . Procedure Type: Colonoscopy. Procedure provider Performed by Zenon PORTER MD. Referred by XENA MCGHEE MD. Current history and physical Documented on chart. Colorectal neoplasm risk assessment Average risk. Informed Consent After discussing the rationale, risks and benefits, and alternatives to this procedure, the patient provided signed consent for the procedure. Pre-procedure diagnosis: Rectal bleeding. ASA Classification: Class III. . Monitoring: See anesthesia record. . Procedure The procedure was performed in the hospital. See anesthesia record for sedation given during procedure. Rectal exam was performed and abnormal revealing skin tag(s), circumferential skin tags, no ulceration or bleeding, area of mucosal prolapse. The patient was positioned starting in the left lateral decubitus position. Endoscope type used was an adult-size. The endoscope was lubricated then introduced through the anus. The scope was advanced to the cecum verified by photographing the appendiceal orifice, verified by photographing the ileocecal valve. No difficulties encountered during the procedure. The bowel preparation quality was good and was adequate (see polyps greater than or equal to 6 millimeters). The patient tolerated the procedure well. Findings The appendiceal base multiple biopsies were collected and irregular flat lesions near appendiceal orifice; no erythema, not raised.. Diverticulosis was identified in the sigmoid colon. The severity of the diverticulosis is moderate. Images Procedure images: anal canal [id number]. jpg [id number]. jpg sigmoid diverticulosis ileocecal valve lesions near appendiceal orifice appendiceal orifice . Post-Procedure Complications: none. Estimated blood loss: 1 milliliters. Specimens: sent to pathology. Devices/ implants: none left in place. Impression and Plan Diagnosis: Sigmoid diverticulosis ([id number] K57.30, Discharge, Medical), Anal skin tag ([id number] K64.4, Discharge, Medical). Course: Progressing as expected. Recommendations: Repeat colonoscopy:: Will depend on pathology . Follow-up:: in 7-10 days. Diet:: Regular diet. Medication resumption:: Continue current medications. Return to activities:: After 24 hours. Education and Follow-up: Counseled: Family. [facility] Comment on above: Other Comment: Briana medina Attachment - attachment storage system not supported [id number] [facility] Attachment - attachment storage system not supported [id number] Can be [facility] Attachment - attachment storage system not supported [id number] Can be viewed in source systemMissing Attachment - attachment storage system not supported [id number] Can be [facility] Attachment - attachment storage system not supported [id number] Can be viewed [facility] Attachment - attachment storage system not supported [id number] Can be viewed in source systemMissing Attachment - attachment storage system not supported [id number] Can be viewed in source system Consent for Treatmenton 06-22 Consent for Treatment [id number]:127 [facility] Inpatient Patient Summaryon 07-04-2022 Inpatient Patient Summary [place] [id number] [facility] Clinical Discharge Instructions PERSON INFORMATION Name: MARGY PULIDO PHYSICIANS Admitting Physician: Zenon PORTER MD Attending Physician: Zenon PORTER MD PCP: TAZ WATERMAN, XENA Discharge Diagnosis: Anal skin tag; Sigmoid diverticulosis Comment: PATIENT EDUCATION INFORMATION Instructions: Medication Leaflets: Follow up: With: Address: When: Zenon PORTER Chris Guerra, [address], [facility] [address] [place] [address] Business (1) Within 7 to 10 days MEDICATION LIST Medications to Continue with No Changes Other Medications bifidobacterium-lac tobacillus (Probiotic 10 Ultra Strength) 1 Capsules By Mouth every day. calcium carbonate-magnesium chloride (Slow-Mag) 2 Tablets By Mouth every day. cetirizine 10 Milligram By Mouth every day. cholecalciferol (Vitamin D3) 20 Microgram By Mouth every day. citalopram (CeleXA 10 mg Tab) 1 Tablets By Mouth every day. fluticasone nasal (Flonase) 2 Sprays Nasal Inhalation every day as needed Congestion. metformin (metformin 500 mg ER Tab) 1 Tablets By Mouth every day. omega-3 polyunsaturated fatty acids (Fish Oil 500 mg oral capsule) 500 Milligram By Mouth every day. pantoprazole (Pantoprazole [address] Tab) 1 Tablets By Mouth 2 times a day. Comment: [facility] Main OR PACU I Recordon 06-22 Main OR PACU I Record PACU Phase I Document Type FT Summary Primary Physician: Zenon PORTER MD Finalized Date/Time: 07/04/22 13:55:55 Pt. Name: MARGY PULIDO Maurice Hernandez/Sex: 1945 Female Med Rec #: [id number] Physician: Zenon PORTER MD Financial #: [id number] Pt. Type: O Room/Bed: / Admit/Disch: 07/04/22 06:57:48 - Institution: Case Times PACU I FT Pre-Care Text: Identifies barriers to communication and implements measures to provide psychological support Develops individualized plan of care, and ensures continuity of care Maintains patient's dignity and privacy, and maintains patient confidentiality Identifies and reports philosophical, cultural, and spiritual beliefs and values Identifies individual values and wishes concerning care Implements aseptic technique, and administers prescribed antibiotic therapy and immunizing agents as ordered Evaluates postoperative tissue perfusion Implements thermoregulation measures, and monitors body temperature Evaluates postoperative respiratory status Evaluates postoperative cardiac status Evaluates postoperative neurological status Assesses pain control, collaborated in initiating patient-controlled analgesia and implements alternative methods of pain control Verifies allergies, administers prescribed medications and solutions, evaluates response to medications Entry 1 In PACU I 07/04/22 08:32:00 Discharge from PACU 07/04/22 10:00:00 I Outcomes Met? Yes Last Modified By: DAV CLARK RN 07/04/22 13:55:42 Post-Care Text: The patient demonstrates knowledge of the expected response to the operative or invasive procedure The patient's care is consistent with the individualized perioperative plan of care The patient's right to privacy is maintained The patient's value system, lifestyle, ethnicity, and culture are considered, respected, and incorporated into the perioperative plan of care The patient participates in decisions affecting his or her perioperative plan of care The patient is free from signs and symptoms of infection The patient has wound/tissue perfusion consistent with or improved from baseline levels established preoperatively The patient is at or returning to normothermia at the conclusion of the immediate postoperative period The patient's respiratory function is consistent with or improved from baseline levels established preoperatively The patient's cardiovascular status is consistent with or improved from baseline levels established preoperatively The patient's cardiovascular status is consistent with or improved from baseline levels established preoperatively The patient demonstrates and/or reports adequate pain control throughout the perioperative period The patient received appropriate medication(s), safely administered during the perioperative period Acuity Level PACU I FT Entry 1 Start Time 07/04/22 08:32:00 Stop Time 07/04/22 10:00:00 Acuity Level Acuity Level I Last Modified By: DAV CLARK RN 07/04/22 13:55:52 Finalized By: DAV CLARK RN Document Signatures Signed By: DAV CLARK RN 07/04/22 13:55 [facility] Main OR Preoperative Recordo n 07-04-2022 Main OR Preoperative Record Holding Area Document Type FT Summary Primary Physician: Zenon PORTER MD Finalized Date/Time: 07/04/22 07:10:34 Pt. Name: MARGY PULIDO Maurice Hernandez./Sex: 1945 Female Med Rec #: [id number] Physician: Zenon PORTER MD Financial #: [id number] Pt. Type: O Room/Bed: / Admit/Disch: 07/04/22 06:57:48 - Institution: Case Times Holding FT Pre-Care Text: Verifies consent for planned procedure, identifies individual values and wishes concerning care, includes family members in perioperative teaching Secures patient's records' belongings, and valuables, maintains patient's dignity and privacy, and maintains patient confidentiality Entry 1 In Holding 07/04/22 07:05:00 Outcomes Met? Yes Last Modified By: Luba Weiner RN 07/04/22 07:08:22 Post-Care Text: The patient participates in decisions affecting his or her perioperative plan of care The patient's right to privacy is maintained Surgery Checklist FT Entry 1 Patient Birthday, ID Band Procedure History and Physical, Identification: Check, Patient Verification: Surgical Consent, With Participation Family, With Patient NPO after Midnight: Yes Preop Results Isolation Status Reviewed: Personal Items: Cataract Lens Implant, Complaints of Pain: No Dentures, Glasses Operative Site n/a Availability Equipment Marking: Verified: Does Patient Smoke No Patient states Yes Comment - Adult daughter Crystal postop adult Supervision supervision available Case Cancelled in No Holding Area see comments below for reason Last Modified By: Luba Weiner RN 07/04/22 07:10:32 Finalized By: Luba Weiner RN Document Signatures Signed By: Luba Weiner RN 07/04/22 07:10 [facility] Monitor Recordon 07-04-2022 Monitor Record [id number]:127 [facility] Monitor Record [id number]:127 [facility] Outpatient Surgery Discharge Instructionon 07-04-2022 Outpatient Surgery Discharge Instruction [address] [address] Patient Discharge Instructions PERSON INFORMATION Name: MARGY PULIDO Date of : 1945 Current Date: 07/04/2022 08:37:02 PHYSICIANS Admitting Physician: Zenon PORTER MD Discharge Diagnosis: Anal skin tag; Sigmoid diverticulosis MARGY PULIDO has been given the following list of follow-up instructions, prescriptions, and patient education materials: PATIENT FOLLOW-UP INFORMATION Diet: Other: high fiber Discharge Activity: Resume normal activities in 24 hours, Arrange for a responsible adult supervision for 24 hours Discharge Restrictions: No driving for 24 hrs, Do not operate machinery or tools, Do not make important decisions for 24 hours, Do not drink alcoholic beverages for 24 hours Call Your Doctor For: Persistent or heavy bleeding, Temperature above 101.5 degrees, Redness, swelling, or pus at operative site, Severe pain at the operative site, Persistent vomiting IF UNABLE TO CONTACT YOUR PHYSICIAN AND YOU FEEL IT IS AN EMERGENCY, GO TO THE NEAREST EMERGENCY ROOM OR CALL 911 I, MARGY PULIDO, have received the attached patient education materials/instructi ons and have verbalized understanding: May we do a follow up call? Yes No I was present when discharge instructions were given Patient Signature Date Clinican/Nurse Signature Date Follow up: With: Address: When: Zenon Guerra, [address], [address] [address] Business (1) Within 7 to 10 days Pharmacy Information: [facility] You may receive a survey from [employer] asking you to rate your care experience. Your feedback is important and will help us understand what we do well and how we can improve the quality of care we provide to you, your loved ones and our community. It?s an honor to serve you. Thank you for choosing [facility] HERE ARE THE MEDICATION CHANGES THAT OCCURRED DURING YOUR HOSPITAL STAY Medications to Continue with No Changes Other Medications bifidobacterium-lac tobacillus (Probiotic 10 Ultra Strength) 1 Capsules By Mouth every day. calcium carbonate-magnesium chloride (Slow-Mag) 2 Tablets By Mouth every day. cetirizine 10 Milligram By Mouth every day. cholecalciferol (Vitamin D3) 20 Microgram By Mouth every day. citalopram (CeleXA 10 mg Tab) 1 Tablets By Mouth every day. fluticasone nasal (Flonase) 2 Sprays Nasal Inhalation every day as needed Congestion. metformin (metformin 500 mg ER Tab) 1 Tablets By Mouth every day. omega-3 polyunsaturated fatty acids (Fish Oil 500 mg oral capsule) 500 Milligram By Mouth every day. pantoprazole (Pantoprazole [address] Tab) 1 Tablets By Mouth 2 times a day. PATIENT EDUCATION INFORMATION Instructions: Medication Leaflets: [facility] Patient Education - Texton 0 07-04-2022 Patient Education - Text [facility] Progress Note-Physicianon Progress Note-Physician Patient: MARGY PULIDO Age: 77 years Sex: Female : 1945 Associated Diagnoses: None Author: MD Neymar, Ahmajaxson F Preoperative Information Anesthesia Preop Information NPO 8 HOURS EXCEPT GI PREP AT LEAST 4 HOURS PRIOR TO PROCEDURE Anesthesia history: Patient history: No prior anesthesia problems. Re-evaluation prior to induction: Initial evaluation reviewed: No significant change. Anesthesia results ANESTHESIOLOGY VIEW 07/04/2022 7:25 EDT Temperature Temporal Artery 36.5 DegC Heart Rate Monitored 75 bpm Respiratory Rate Monitored 29 br/min Systolic Blood Pressure 142 mmHg HI Diastolic Blood Pressure 75 mmHg Blood Pressure Location Right arm SpO2 97 % 07/04/2022 7:19 EDT Height/Length Measured 161 cm Weight Measured 98.1 kg 06/13/2022 15:42 EDT WBC 7.7 E9/L RBC 4.6 E12/L HGB 13.8 gm/dL Hct 41.2 % MCV 89.5 fL MCH 30.1 pg MCHC 33.6 gm/dL RDW 13.3 % Platelet 216.0 E9/L MPV 9.4 fL 06/13/2022 15:35 EDT Heart Rate Monitored 65 bpm SpO2 97 % 06/13/2022 15:34 EDT Systolic Blood Pressure 143 mmHg HI Diastolic Blood Pressure 81 mmHg Mean Arterial Pressure, Monitered 102 mmHg 06/13/2022 15:34 EDT Respiratory Rate 17 br/min 06/13/2022 15:11 EDT Height/Length Measured 157 cm Height/Length Measured 157 cm BSA Measured 2.07 m2 Weight Measured 98.2 kg Weight Measured 98.2 kg Type of Anesthesia Reaction nausea Anesthesia History Prior anesthesia 06/06/2022 8:22 EDT History and Physical 05/30/2022 13:19 EST Height/Length Measured 161 cm Weight Measured 98.1 kg Peripheral Pulse Rate 66 bpm Respiratory Rate 20 br/min Systolic Blood Pressure 137 mmHg Diastolic Blood Pressure 83 mmHg Blood Pressure Location Right arm 08/29/2021 21:31 EDT Heart Rate Monitored 55 bpm LOW Respiratory Rate 16 br/min Systolic Blood Pressure 186 mmHg HI Diastolic Blood Pressure 76 mmHg Mean Arterial Pressure, Cuff 113 mmHg SpO2 96 % 08/29/2021 21:30 EDT Heart Rate Monitored 54 bpm LOW SpO2 95 % 08/29/2021 21:05 EDT Primary Pain Location Back Primary Pain Quality Sharp Patient Preferred Pain Tool Numeric rating Numeric Pain Scale 7 Numeric Pain Score 7 Left Upper Lobe Breath Sounds Clear Right Upper Lobe Breath Sounds Clear Right Middle Lobe Breath Sounds Clear Left Lower Lobe Breath Sounds Clear Right Lower Lobe Breath Sounds Clear 08/29/2021 20:22 EDT Temperature Oral 36.8 DegC Peripheral Pulse Rate 58 bpm LOW Respiratory Rate 16 br/min Systolic Blood Pressure 197 mmHg HI Diastolic Blood Pressure 87 mmHg SpO2 97 % 08/29/2021 20:20 EDT WBC 8.3 E9/L RBC 4.4 E12/L HGB 13.4 gm/dL Hct 39.2 % MCV 89.5 fL MCH 30.6 pg MCHC 34.2 gm/dL RDW 13.2 % Platelet 205.0 E9/L MPV 8.2 fL Neutro Auto 49.2 % Lymph Auto 38.3 % Randall Auto 8.9 % Eos Auto 2.3 % Basophil Auto 1.3 % Neutro Absolute 4.1 E9/L Lymph Absolute 3.2 E9/L Randall Absolute 0.7 E9/L Eos Absolute 0.2 E9/L Basophil Absolute 0.1 E9/L 08/29/2021 20:05 EDT Primary Pain Location Back Primary Pain Quality Sharp Patient Preferred Pain Tool Numeric rating Numeric Pain Scale 9 Numeric Pain Score 9 Respirations Unlabored Chest Motion Symmetrical Left Upper Lobe Breath Sounds Diminished Left Upper Lobe Breath Sounds Clear Right Upper Lobe Breath Sounds Diminished Right Upper Lobe Breath Sounds Clear Right Middle Lobe Breath Sounds Clear Right Middle Lobe Breath Sounds Diminished Left Lower Lobe Breath Sounds Diminished Left Lower Lobe Breath Sounds Clear Right Lower Lobe Breath Sounds Diminished Right Lower Lobe Breath Sounds Clear Review of Systems Cardiovascular: Negative. Respiratory: Negative. Health Status Allergies: Allergic Reactions (Selected) Severity Not Documented Benadryl- Hives. Cipro- Hives. Erythromycin- Hives. Hydrocortisone- Hives. Neosporin- Rash. NSAIDs- Stomach pain. Penicillin- Hives. Percocet- Edema of face. Povidone iodine topical- Rash., Allergies (9) Active Reaction Benadryl Hives Cipro Hives erythromycin Hives hydrocortisone Hives Neosporin Rash NSAIDs Stomach pain penicillin Hives Percocet Edema of face povidone iodine topical Rash Current medications: (Selected) Inpatient Medications Ordered Sodium Chloride 0.9% IV Brenda 1000 mL 1,000 mL: 1,000 mL, IV, 20 mL/hr, Routine, Start date 07/04/22 6:40:00 EDT, 50 hour(s), Total volume (mL): 1,000, 98.2 kg, 2.07, m2 Documented Medications Documented CeleXA 10 mg Tab: 10 mg = 1 tab(s), Oral, Daily, Refills(s) 0, Depression Fish Oil 500 mg oral capsule: 500 mg, Oral, Daily, Refills(s) 0, Prophylaxis Flonase: 2 spray(s), Nasal, Daily Congestion, Refill(s) [address] Tab: 40 mg = 1 tab(s), Oral, BID, Refills(s) 0, Gas Probiotic 10 Ultra Strength: 1 cap(s), Oral, Daily, Refill(s) 0, Prophylaxis Slow-Ma tab(s), Oral, Daily Vitamin D3: 20 mcg, Oral, Daily, Refills(s) 0, Prophylaxis cetirizine: 10 mg, Oral, Daily, Refills(s (more content not included)... Normal [facility] Comment on above: Result Comment: Elec tronically Signed By: MD Neymar, Bell Chavarria\.br\Date and Time Signed: 07/04/22 07:58 EDT BUNon 06-13-2022 Urea nitrogen [Mass/Vol] 14 mg/dL Normal 5-21 [facility] Comment on above: Performed By: #### 1 [id number], [id number], 3605196, 1279383, 3802369, 2373917 #### [facility] [address] [place] [address] CBC w/Indiceson 06-13-2022 Erythrocyte distribution width (RBC) [Ratio] 13.3 % Normal 10.9-14.2 [facility] Comment on above: Performed By: #### 1 [id number], 8173629, 1291054, 9800451, 2108829, 4952477 #### [facility] [address] [place] [address] Hematocrit (Bld) [Volume fraction] 41.2 % Normal 34.0-46.0 [facility] Comment on above: Performed By: #### 1 [id number], 3106317, 8098855, 1745365, 5959286, 4779243 #### [facility] [address] [place] [address] Hemoglobin (Bld) [Mass/Vol] 13.8 g/dL Normal 12.0-16.0 [facility] Comment on above: Performed By: #### 1 [id number], 5630921, 4676829, 1502751, 1313477, 8924146 #### [facility] [address] [place] [address] MCH (RBC) [Entitic mass] 30.1 pg Normal 27.0-34.0 [facility] Comment on above: Performed By: #### 1 7469976, 7217708, 5579727, 4000813, 1754872, 8084012 #### [facility] [address] [place] [address] MCHC (RBC) [Mass/Vol] 33.6 g/dL Normal 31.4-36.0 [facility] Comment on above: Performed By: #### 1 [id number], 9994635, 5113484, 5643722, 3496464, 7431542 #### [facility] [address] [place] [address] MCV (RBC) [Entitic vol] 89.5 fL Normal 80.0-100.0 [facility] Comment on above: Performed By: #### 1 1478523, 4490682, 5185305, 7501793, 5287189, 8993246 #### [facility] [address] [place] [address] Platelet mean volume (Bld) [Entitic vol] 9.4 fL Normal 6.4-10.8 [facility] Comment on above: Performed By: #### 1 9549081, 1974464, 6611235, 0073684, 4670236, 6403150 #### [facility] [address] [place] [address] Platelets (Bld) [#/Vol] 216.0 E9/L Normal 150.0-500.0 [facility] Comment on above: Performed By: #### 1 9243310, 5528260, 1063218, 7138154, 4924574, 4360296 #### [facility] [address] [place] [address] RBC (Bld) [#/Vol] 4.6 E12/L Normal 4.3-5.9 [facility] Comment on above: Performed By: #### 1 2243332, 2751490, 7764464, 4570801, 6407678, 7992810 #### [facility] [address] [place] [address] WBC corrected for nucl RBC Auto (Bld) [#/Vol] 7.7 E9/L Normal 4.0-11.0 [facility] Comment on above: Performed By: #### 1 8086378, 6486291, 7051277, 0218533, 8377308, 9363050 #### [facility] [address] [place] [address] CHEMISTRYOrdered By: SYSTEM SYSTEM on 06-13-2022 Anion gap [Moles/Vol] 15 mmol/L Normal 6 - 16 mEq/L [facility] Remisol Chloride [Moles/Vol] 103 mmol/L Normal 101 - 1 11 mmol/L FT Remisol CO2 [Moles/Vol] 23 mmol/L Normal 21 - 31 mmol/L FT Remisol Creatinine [Mass/Vol] 0.7 mg/dL Normal 0.5 - 1.3 mg/dL [facility] Remisol GFR/1.73 sq M.predicted among blacks MDRD (S/P/Bld) [Vol rate/Area] mL/min/1.73 m2 Normal >=59mL/min/[address] [facility] Chem S GFR/1.73 sq M.predicted among non-blacks MDRD (S/P/Bld) [Vol rate/Area] mL/min/1.73 m2 Normal >=59mL/min/[address] [facility] Chem S Glucose [Mass/Vol] 151 mg/dL Normal 55 - 199 mg/dL [facility] Remisol Potassium [Moles/Vol] 3.6 mmol/L Normal 3.5 - 5.3 mmol/L FT Remisol Sodium [Moles/Vol] 137 mmol/L Normal 135 - 145 mmol/L FT Remisol Urea nitrogen [Mass/Vol] 14 mg/dL Normal 5 - 21 mg/d L [facility] Remisol Consent for Treatmenton 05-23 Consent for Treatment [id number]#[id number]:127 [facility] Creatinineon 06-13-2022 Creatinine [Mass/Vol] 0.7 mg/dL Normal 0.5-1.3 [facility] Comment on above: Performed By: #### 1 [id number], 9990741, 1968151, 8603102, 6916907, 9218720 #### [facility] [address] [place] [address] Glucoseon 06-13-2022 Glucose [Mass/Vol] 151 mg/dL Normal 55-199 [facility] Comment on above: Performed By: #### 1 1538992, 9865733, 5743047, 6101306, 4120906, 2549884 #### [facility] [address] [place] [address] HEMATOLOGYOrdered By: Anamaria Garza on 06-13-2022 Erythrocyte distribution width (RBC) [Ratio] 13.3 % Normal 10.9 - 14.2 % FT [facility] Hematocrit (Bld) [Volume fraction] 41.2 % Normal 34.0 - 46.0 % [facility]eAutoSS Hemoglobin (Bld) [Mass/Vol] 13.8 g/dL Normal 12.0 - 16.0 gm/dL FT [facility] MCH (RBC) [Entitic mass] 30.1 pg Normal 27. 0 - 34.0 pg [facility]eAutoSS MCHC (RBC) [Mass/Vol] 33.6 g/dL Normal 31.4 - 36.0 gm/dL [facility] MCV (RBC) [Entitic vol] 89.5 fL Normal 80.0 - 100.0 fL [facility]eAutoSS Platelet mean volume (Bld) [Entitic vol] 9.4 fL Normal 6.4 - 10.8 fL [facility]eAutoSS Platelets (Bld) [#/Vol] 216.0 E9/L Normal 150. 0 - 500.0 E9/L [facility] RBC (Bld) [#/Vol] 4.6 E12/L Normal 4.3 - 5.9 E12/L [facility]eAutoSS WBC corrected for nucl RBC Auto (Bld) [#/Vol] 7.7 E9/L Normal 4.0 - 11.0 E9/L [facility] HemeAutoSS Lyteson 06-13-2022 Anion gap [Moles/Vol] 15 mmol/L Normal 6-16 [facility] Comment on above: Performed By: #### 1 5323458, 4289852, 2555360, 7020021, 5452944, 6500223 #### [facility] [address] [place] [address] Chloride [Moles/Vol] 103 mmol/L Normal 101-111 [facility] Comment on above: Performed By: #### 1 1911981, 9513457, 8103939, 8333561, 3110522, 1080822 #### [facility] [address] [place] [address] CO2 [Moles/Vol] 23 mmol/L Normal 21-31 [facility] Comment on above: Performed By: #### 1 5223599, 0013593, 7862854, 3634743, 9203888, 1138625 #### [facility] [address] [place] [address] Potassium [Moles/Vol] 3.6 mmol/L Normal 3.5-5.3 [facility] Comment on above: Performed By: #### 1 2572033, 2792703, 4982058, 0547894, 9896895, 3681039 #### [facility] [address] [place] [address] Sodium [Moles/Vol] 137 mmol/L Normal 135-145 [facility] Comment on above: Performed By: #### 1 7216826, 6581612, 5015338, 8624624, 7900823, 8437934 #### [facility] [address] [place] [address] eGFRon 06-13-2022 GFR/1.73 sq M.predicted among blacks MDRD (S/P/Bld) [Vol rate/Area] mL/min/{1.73_m2} Normal >=59 [facility] Comment on above: Order Comment: Order added by Discern Expert. Result Comment: eGFR is race adjusted. AA=. Performed By: #### 1 5997173, 4507514, 1540823, 2940362, 8300636, 2796848 #### [facility] [address] [place] [address] GFR/1.73 sq M.predicted among non-blacks MDRD (S/P/Bld) [Vol rate/Area] mL/min/{1.73_m2} Normal >=59 [facility] Comment on above: Order Comment: Order added by Discern Expert. 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 Kidney failure is indicated at less than 15 mL/min/1.73m2. Performed By: #### 1 6640364, 8916021, 0134799, 4770029, 5637437, 1030856 #### [facility] [address] [place] [address] GLYCOHEMOGLOBIN A1Con 2022 ADA RECOMMENDATION SEE BELOW Normal [facility] Comment on above: Result Comment: ADA RECOMMENDED LIMIT 4.0 - 6.0 ADA THERAPEUTIC TARGET < 7.0 ACTION SUGGESTED > 7.0 Performed By: #### A 1C #### [facility] [address] [place] [address] Dr. Piedad Mccabe Glucose [Mass/Vol] 123 mg/dL Normal [facility] Comment on above: Performed By: #### A 1C #### [facility] [address] [place] [address] Dr. Piedad Mccabe HbA1c (Bld) [Mass fraction] 5.9 % Normal 4.5-6.2 [facility] Comment on above: Performed By: #### A 1C #### [facility] [address] [place] [address] Dr. Piedad Mccabe CBC AUTO DIFFon 04-24-2022 BASO # 0.1 103/ul Normal 0.0-0.1 [facility] Comment on above: Performed By: #### C BC #### [facility] [address] [place] [address] Dr. Piedad Mccabe Basophils/100 WBC (Bld) 1.1 % Normal 0.2-2.0 [facility] Comment on above: Performed By: #### C BC #### [facility] [address] [place] [address] Dr. Piedad Mccabe EO # 0.3 103/ul Normal 0.0-0.7 [facility] Comment on above: Performed By: #### C BC #### [facility] [address] [place] [address] Dr. Piedad Mccabe Eosinophils/100 WBC (Bld) 2.9 % Normal 0.9-7.0 [facility] Comment on above: Performed By: #### C BC #### [facility] [address] [place] [address] Dr. Piedad Mccabe Erythrocyte distribution width (RBC) [Ratio] 13.7 % Normal 11.0-15.0 [facility] Comment on above: Performed By: #### C BC #### [facility] [address] [place] [address] Dr. Piedad Mccabe Hematocrit (Bld) [Volume fraction] 42.6 % Normal 36.0-48.0 [facility] Comment on above: Performed By: #### C BC #### [facility] [address] [place] [address] Dr. Piedad Mccabe Hemoglobin (Bld) [Mass/Vol] 13.6 g/dL Normal 12.0-16.0 [facility] Comment on above: Performed By: #### C BC #### [facility] [address] [place] [address] Dr. Piedad Mccabe IG # 0.02 10e3/ul Normal 0.00-0.03 [facility] Comment on above: Performed By: #### C BC #### [facility] [address] [place] [address] Dr. Piedad Mccabe IG % 0.2 % Normal 0.0-0.5 [facility] Comment on above: Performed By: #### C BC #### [facility] [address] [place] [address] Dr. Piedad Mccabe LYMPH # 3.8 103/ul Normal 1.2-3.8 [facility] Comment on above: Performed By: #### C BC #### [facility] [address] [place] [address] Dr. Piedad Mccabe Lymphocytes/100 WBC (Bld) 39.8 % Normal 20.5-60.0 [facility] Comment on above: Performed By: #### C BC #### [facility] [address] [place] [address] Dr. Piedad Mccabe MANUAL DIFF REQ NO Normal [facility] Comment on above: Performed By: #### C BC #### [facility] [address] [place] [address] Dr. Piedad Mccabe MCH (RBC) [Entitic mass] 29.4 pg Normal 26.7-34.0 [facility] Comment on above: Performed By: #### C BC #### [facility] [address] [place] [address] Dr. Piedad Mccabe MCHC (RBC) [Mass/Vol] 31.9 g/dL Normal 29.9-35.2 [facility] Comment on above: Performed By: #### C BC #### [facility] [address] [place] [address] Dr. Pieadd Mccabe MCV (RBC) [Entitic vol] 92.2 fL Normal 81.0-99.0 [facility] Comment on above: Performed By: #### C BC #### [facility] [address] [place] [address] Dr. Piedad Mccabe MONO # 0.7 103/ul Normal 0.3-0.8 [facility] Comment on above: Performed By: #### C BC #### [facility] [address] [place] [address] Dr. Piedad Mccabe Monocytes/100 WBC (Bld) 7.1 % Normal 1.7-12.0 [facility] Comment on above: Performed By: #### C BC #### [facility] [address] [place] [address] Dr. Piedad Mccabe NEUT # 4.6 103/ul Normal 1.4-6.5 [facility] Comment on above: Performed By: #### C BC #### [facility] [address] [place] [address] Dr. Piedad Mccabe Neutrophils/100 WBC (Bld) 48.9 % Normal 43.0-75.0 [facility] Comment on above: Performed By: #### C BC #### [facility] [address] [place] [address] Dr. Piedad Mccabe Platelet mean volume (Bld) [Entitic vol] 10.2 fL Normal 9.5-13.5 [facility] Comment on above: Performed By: #### C BC #### [facility] [address] [address] [address] Piedad Mccabe PLT 212 103/ul Normal 150-450 [facility] Comment on above: Performed By: #### C BC #### [facility] [address] [place] [address] Dr. Piedad Mccabe RBC 4.62 106/ul Normal 4.20-5.40 [facility] Comment on above: Performed By: #### C BC #### [facility] [address] [place] [address] Dr. Piedad Mccabe WBC 9.4 103/ul Normal 4.0-11.0 [facility] Comment on above: Performed By: #### C BC #### [facility] [address] [place] [address] Dr. Piedad Mccabe MICROALBUMIN URINEon 022 Albumin, Urine 7.3 ug/mL Normal Not Estab. [facility] Comment on above: Performed By: #### M ALBLC #### [facility] [address] [place] [address] Dr. Piedad Mccabe CBC AUTO DIFFon 11-22-2021 BASO # 0.1 103/ul Normal 0.0-0.1 [facility] Comment on above: Performed By: #### C BC ####[facility] [address] [address]Dr. Piedad Mccabe Basophils/100 WBC (Bld) 1.2 % Normal 0.2-2.0 [facility] Comment on above: Performed By: #### C BC ####[facility] [address] [address]Dr. Piedad Mccabe EO # 0.2 103/ul Normal 0.0-0.7 [facility] Comment on above: Performed By: #### C BC ####[facility] [address] [place], [place] [address]Dr. Piedad Mccabe Eosinophils/100 WBC (Bld) 2.9 % Normal 0.9-7.0 [facility] Comment on above: Performed By: #### C BC ####[facility] [address] [place], [place] [address]Dr. Piedad Mccabe Erythrocyte distribution width (RBC) [Ratio] 12.7 % Normal 11.0-15.0 [facility] Comment on above: Performed By: #### C BC ####[facility] [address] [place], [place] [address]Dr. Piedad Mccabe Hematocrit (Bld) [Volume fraction] 41.2 % Normal 36.0-48.0 [facility] Comment on above: Performed By: #### C BC ####[facility] [address] [place], [place] [address]Dr. Piedad Mccabe Hemoglobin (Bld) [Mass/Vol] 13.5 g/dL Normal 12.0-16.0 [facility] Comment on above: Performed By: #### C BC ####[facility] [address] [place], [place] [address]Dr. Piedad Eliot IG # 0.01 10e3/ul Normal 0.00-0.03 [facility] Comment on above: Performed By: #### C BC ####[facility] [address] [place], [place] [address]Dr. Analigordon Mccabe IG % 0.2 % Normal 0.0-0.5 [facility] Comment on above: Performed By: #### C BC ####[facility] [address] [place], [place] [address]Dr. Piedad Mccabe LYMPH # 2.8 103/ul Normal 1.2-3.8 [facility] Comment on above: Performed By: #### C BC ####[facility] [address] [place], [place] [address]DrMarlene Mcacbe Lymphocytes/100 WBC (Bld) 42.8 % Normal 20.5-60.0 [facility] Comment on above: Performed By: #### C BC ####[facility] [address] [place], [place] [address]DrMarlene Mccabe MANUAL DIFF REQ NO Normal [facility] Comment on above: Performed By: #### C BC ####[facility] [address] [place], [place] [address]Dr. Piedad Mccabe MCH (RBC) [Entitic mass] 29.7 pg Normal 26.7-34.0 [facility] Comment on above: Performed By: #### C BC ####[facility] [address] [place], [place] [address]DrMarlene Mccabe MCHC (RBC) [Mass/Vol] 32.8 g/dL Normal 29.9-35.2 [facility] Comment on above: Performed By: #### C BC ####[facility] [address] [place], [place] [address]DrMarlene Mccabe MCV (RBC) [Entitic vol] 90.5 fL Normal 81.0-99.0 [facility] Comment on above: Performed By: #### C BC ####[facility] [address] [place], [place] [address]DrMarlene Mccabe MONO # 0.4 103/ul Normal 0.3-0.8 [facility] Comment on above: Performed By: #### C BC ####[facility] [address] [place], [place] [address]DrMarlene Mccabe Monocytes/100 WBC (Bld) 6.6 % Normal 1.7-12.0 [facility] Comment on above: Performed By: #### C BC ####[facility] [address] [place], [place] [address]DrMarlene Mccabe NEUT # 3.0 103/ul Normal 1.4-6.5 [facility] Comment on above: Performed By: #### C BC ####[facility] [address] [place], [place] [address]DrMarlene Mccabe Neutrophils/100 WBC (Bld) 46.3 % Normal 43.0-75.0 [facility] Comment on above: Performed By: #### C BC ####[facility] [address] [address]Dr. Piedad Mccabe Platelet mean volume (Bld) [Entitic vol] 10.8 fL Normal 9.5-13.5 [facility] Comment on above: Performed By: #### C BC ####[facility] [address] [address]Dr. Piedad Mccabe PLT 196 103/ul Normal 150-450 [facility] Comment on above: Performed By: #### C BC ####[facility] [address] [place], [place] [address]Dr. Piedad Mccabe RBC 4.55 106/ul Normal 4.20-5.40 [facility] Comment on above: Performed By: #### C BC ####[facility] [address] [place], [place] [address]Dr. Piedad Mccabe WBC 6.5 103/ul Normal 4.0-11.0 [facility] Comment on above: Performed By: #### C BC ####[facility] [address] [place], [place] [address]Dr. Piedad Mccabe GLYCOHEMOGLOBIN A1Con 2021 ADA RECOMMENDATION SEE BELOW Normal [facility] Comment on above: Result Comment: ADA RECOMMENDED LIMIT 4.0 - 6.0 ADA THERAPEUTIC TARGET < 7.0 ACTION SUGGESTED > 7.0 Performed By: #### A 1C ####[facility] [address] [place], [place] [address]Dr. Piedad Mccabe Glucose [Mass/Vol] 117 mg/dL Normal [facility] Comment on above: Performed By: #### A 1C ####[facility] [address] [place], [place] [address]Dr. Piedad Mccabe HbA1c (Bld) [Mass fraction] 5.7 % Normal 4.5-6.2 [facility] Comment on above: Performed By: #### A 1C ####[facility] [address] [place], [place] [id number]. Piedad Mccabe LIPID PROFILEon 11-22-2021 CHOL-HDL RATIO NORM SEE BELOW Normal [facility] Comment on above: Result Comment: 3.3 - 4.4 LOW RISK 4.4 - 7.1 AVERAGE RISK 7.1 - 11.0 MODERATE RISK >11.0 HIGH RISK Performed By: #### L IPID, BMP, TSH, AST, ALT #### [facility] [address] [address] [address] Piedad Mccabe Cholesterol [Mass/Vol] 267 mg/dL Critically high <=200 [facility] Comment on above: Performed By: #### L IPID, BMP, TSH, AST, ALT #### [facility] [address] [address] [address] Piedad Mccabe Cholesterol in HDL [Mass/Vol] 40 mg/dL Normal 40-60 [facility] Comment on above: Performed By: #### L IPID, BMP, TSH, AST, ALT #### [facility] [address] [address] [address] Piedad Mccabe Cholesterol in LDL [Mass/Vol] 195.6 mg/dL Normal [facility] Comment on above: Performed By: #### L IPID, BMP, TSH, AST, ALT #### [facility] [address] [address] [address] Piedad Mccabe Cholesterol.total/Choles terol in HDL [Mass ratio] 6.7 {ratio} Normal [facility] Comment on above: Performed By: #### L IPID, BMP, TSH, AST, ALT #### [facility] [address] [place] [address] Dr. Piedad Mccabe HDL NORMAL > or = 60 mg/dl - LOW CARDIOVASCULAR RISK <40 mg/dl - HIGH CARDIOVASCULAR RISK Normal [facility] Comment on above: Performed By: #### L IPID, BMP, TSH, AST, ALT #### [facility] [address] [address] [address] Piedad Mccabe LDL CALC NORMAL SEE BELOW Normal [facility] Comment on above: Result Comment: <100 mg/dl OPTIMAL 100 - 129 mg/dl NEAR OR ABOVE OPTIMAL 130 - 159 mg/dl BORDERLINE HIGH 160 - 189 mg/dl HIGH >190 mg/dl VERY HIGH Performed By: #### L IPID, BMP, TSH, AST, ALT #### [facility] [address] [address] [address] Piedad Mccabe Triglyceride [Mass/Vol] 157 mg/dL Critically high <=150 [facility] Comment on above: Performed By: #### L IPID, BMP, TSH, AST, ALT #### [facility] [address] [address] [address] Piedad Mccabe VLDL CALC 31.4 mg/dL Normal [facility] Comment on above: Performed By: #### L IPID, BMP, TSH, AST, ALT #### [facility] [address] [address] [address] Piedad Mccabe PROF CHEM 8 (BAS METB)on Anion gap [Moles/Vol] 13.3 mmol/L Normal [facility] Comment on above: Performed By: #### L IPID, BMP, TSH, AST, ALT #### [facility] [address] [address] [address] Piedad Mccabe Calcium [Mass/Vol] 9.1 mg/dL Normal 8.5-10.1 [facility] Comment on above: Performed By: #### L IPID, BMP, TSH, AST, ALT #### [facility] [address] [address] [address] Piedad Mccabe Chloride [Moles/Vol] 103 mmol/L Normal 98-107 [facility] Comment on above: Performed By: #### L IPID, BMP, TSH, AST, ALT #### [facility] [address] [address] [address] Piedad Mccabe CO2 [Moles/Vol] 25.6 mmol/L Normal 21.0-32.0 [facility] Comment on above: Performed By: #### L IPID, BMP, TSH, AST, ALT #### [facility] [address] [address] [address] Piedad Mccabe Creatinine [Mass/Vol] 0.72 mg/dL Normal 0.55-1.02 [facility] Comment on above: Performed By: #### L IPID, BMP, TSH, AST, ALT #### [facility] [address] [address] [address] Piedad Mccabe EGFR-AF PRYDEINIG >60 Normal >=60 [facility]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 members or close friends when making important decisions. Tell your friends, family, a trusted colleague, and soda worker about your injury, symptoms, and restrictions. Have them watch for any new or worsening problems. General instructions Take grei-zvl-hlhmkmb and prescription medicines only as told by your health care provider. Have someone stay with you for 24 hours after your head injury. This person should watch you for any changes in your symptoms and be ready to seek medical help. Keep all follow-up visits as told by your health care provider. This is important. How is this prevented? Work on improving your balance and strength to avoid falls. Wear a seatbelt when you are in a moving vehicle. Wear a helmet when riding a bicycle, skiing, or doing any other sport or activity that has a risk of injury. If you drink alcohol: ?Limit how much you use to: ?0 1 drink a day for women. ?0 2 drinks a day for men. ?Be aware of how much alcohol is in your drink. In the [place] one drink equals one 12 oz bottle of beer (355 mL), one 5 oz glass of wine (148 mL), or one 1 oz glass of hard liquor (44 mL). Take safety measures in your home, such as: ?Removing clutter and tripping hazards from floors and stairways. ?Using grab bars in bathrooms and handrails by stairs. ?Placing non-slip mats on floors and in bathtubs. ?Improving lighting in dim areas. Get help right away if: You have: ?A severe headache that is not helped by medicine. ?Trouble walking or weakness in your arms and legs. ?Clear or bloody fluid coming from your nose or ears. ?Changes in your vision. ?A seizure. You lose your balance. You vomit. Your pupils change size. Your speech is slurred. Your dizziness gets worse. You faint. You are sleepier than normal and have trouble staying awake. Your symptoms get worse. These symptoms may represent a serious problem that is an emergency. Do not wait to see if the symptoms will go away. Get medical help right away. Call your local emergency services (911 in the [place] Do not drive yourself to the hospital. Summary Head injuries can be minor or they can be a serious medical issue requiring immediate attention. Treatment for this condition depends on the severity and type of injury you have. Ask your health care provider when it is safe for you to return to your regular activities, including work or school. Head injury prevention includes wearing a seat belt in a motor vehicle, using a helmet on a bicycle, limiting alcohol use, and taking safety measures in your home. This information is not intended to replace advice given to you by your health care provider. Make sure you discuss any questions you have with your health care provider. Document Released: 03/10/2006 Document Revised: 04/07/2019 Document Reviewed: 04/02/2019 [employer] Patient Education 2020 [employer]. Follow Up Care 08/29/2021 19:52:06 With:XENA MCGHEE Address: [address] [place] [phone] Business (1) When:Within 3 Day([address]) [facility]06-08-2022 Evaluation + Plan noteExtracted from: Title:ED Note Author:Fantasma Lopez DO Date :08/29/21 CHI (closed head injury) (S0 9.90XA: Unspecified injury of head, initial encounter) Fall (W19.XXXA: Unspecified fall, initial encounter) Left shoulder pain (M25.512: Pain in left shoulder) Orders: fentanyl, 50 microgram = 1 mL, Injection, IV Push, Once, Stop date 08/29/21 20:18:00 EDT, STAT, Start date 08/29/21 20:18:00 EDT, 08/29/21 20:18:00 EDT Automated Diff Basic Metabolic Panel CBC w/ Auto Diff CT Head or Brain w/o Contrast CT Spine Cervical w/o Contrast ECG 12 Lead Adult ED Cardiac Monitoring eGFR Extra Blue Tube NPO Diet Oxygen Therapy Pulse Oximetry Continuous Saline Lock Insert Troponin UA With Cult Reflex XR Chest Single View [facility] Shoulder [facility] Left [facility] Future Appointments Appointment Date:06/20/2022 08:00:00 AM Scheduled Provider: Location:[facility] Appointment Type:Surgery [facility] [place] [facility] course Narrative No data available for this section [facility] instructions No data available for this section [facility] [place] [facility] note No data available for this section [facility] Summary Purpose Family History No Family History Records Found No data available for this section No data available for this section No data available for this section No data available for this section No data available for this section No Family History Records FoundNo Family History Records FoundNo Family History Records Found Advance Directives No Advanced Directives Records FoundNo Advanced Directives Records FoundNo Advanced Directives Records FoundNo Advanced Directives Records Found Additional Source Comments Patient Care team informatio n (unrecognized section and content) Personnel Name: XENA MCGHEE MD Address: Address: [address] [place] [address] Personnel Name: XENA MCGHEE MD Address: Address: [address] [place] [address] Personnel Name: XENA MCGHEE MD Address: Address: [address] [place] [address] Personnel Name: XENA MCGHEE MD Address: Address: [address] [place] [address] Personnel Name: XENA MCGHEE MD Address: Address: [address] [place] [address] Personnel Name: XENA MCGHEE MD Address: Address: [address] [place] [address] Personnel Name: XENA MCGHEE MD Address: Address: [address] [place] [address] Personnel Name: XENA MCGHEE MD Address: Address: [address] [place] [address] [place] INFORMATION SOURCE (unrecogn ized section and content) DATE CREATED AUTHOR 06/01/2022 [facility] DATE CREATED AUTHOR AUTHOR'S ORGANIZ ATION 06/13/2023 [facility] DATE CREATED AUTHOR AUTHOR'S ORGANIZ ATION 12/17/2023 [facility] DATE CREATED AUTHOR AUTHOR'S ORGANIZ ATION 12/23/2023 [facility] FOR RECORDS PERTAINING TO PATIENTS WHO ARE OR HAVE BEEN ENROLLED IN A CHEMICAL DEPENDENCY/SUBSTANCEABUSE PROGRAM, SOME INFORMATION MAY BE OMITTED. This clinical summary was aggregated from multiple sources. Caution should be exercised in using it in the provision of clinical care. This summary normalizes information from multiple sources, and as a consequence, information in this document may materially change the coding, format and clinical context of patient data. In addition, data may be omitted in some cases. CLINICAL DECISIONS SHOULD BE BASED ON THE PRIMARY CLINICAL RECORDS. [employer] provides no warranty or guarantee of the accuracy or completeness of information in this document.
== END 2023-12-25 14:01 | disposition home or self-care (01) ==
LOC: CT 14:00
PROVIDERS: PCP Family Medicine; Visit Provider Family Medicine
DX: R07.89 Other chest pain (principal); S22.20XD Unspecified fracture of sternum, subsequent encounter for fracture with routine healing
CPT/HCPCS: 71250

== ENCOUNTER 2024-06-22 15:15 | Outpatient (OUT) | payer MEDICARE, SELFPAY ==
[2024-06-22 15:49] LABS: Estimated Average Glucose 117 mg/dL; Glycohemoglobin A1C 5.7 % (4.5-6.2)
== END 2024-06-22 15:16 | disposition home or self-care (01) ==
LOC: LAB 15:18
PROVIDERS: PCP Family Medicine; Visit Provider Family Medicine
DX: E11.65 Type 2 diabetes mellitus with hyperglycemia (principal)
CPT/HCPCS: 36415; 83036

== ENCOUNTER 2025-02-10 07:50 | Outpatient (OUT) | payer MEDICARE, SELFPAY ==
--- OUTSIDE RECORDS SUMMARY | 2024-02-26 08:30 | XMS_ITS ---
Author Organization [facility] Address [address] [place] [address] Care Team Providers Care Maint Mechanic Name Role Phone Earl Ravi Primary Care Provider [phone] Neela Call Unavailable REASON FOR VISIT EXT Encounters Encounter Location Date Provider Diagnosis [place] [place] [address] 02/26/2024 Neela Nino Plan Of Treatment No Information Progress Notes * MARGY PULIDO EDOB:[birth year] (79 yo F)Acc No.[id number]:02/26/2024 Patient:?MARGY PULIDO :?NEELA QUINNPRIYA NINO DDSDOB:1945???Age: 79 Y???Sex:FemaleDate:02/26/2024hone:[phone]:[address] [place] [id number]:Earl Ravi Subjective: * Chief Complaints: * E XT * Electronic signature of Neela Nino DDS on 02/10/2025 at 07:53 AM ESTSign off status: Pending * Provider: Aura NINO DDS Date: 04/28/2023 Generated for Printing/Faxing/eTransmitting on:?02/10/2025 07:53 AM EST
--- OUTSIDE RECORDS SUMMARY | 2025-01-27 09:05 | XMS_ITS | Continuity of Care Document ---
Author Organization [facility] Address [address] [place] [address] Phone Care Team Providers Care Benefits Specialist Name Role Phone Baltazar Arroyo MD Primary Care Provider Baltazar Arroyo MD Attending Provider [phone] NON STAFF Primary Care Provider Steven Gore MD Attending Provider Care Teams Patient Care Team Team Status: Active Member Role/Relationship Status Dates Baltazar Arroyo MD Primary Care Provider Active Visit Care Team Team Status: Inactive Member Role/Relationship Status Dates Baltazar Arroyo MD Primary Care Provider Active S tart: December 27, 2024 End: December 27, 2024[facility] Mickie Arroyo ProviderActiveStart: December 27, 2024 End: December 27, 2024 Visit Care Team Team Status: Active Member Role/Relationship Status Dates NON STAFF Primary Care Provider Active Start: January 11, 2025 Mickie Melendez ProviderActiveStart: January 11, 2025 Patient Care Team Team Status: Inactive Member Role/Relationship Status Dates Baltazar Arroyo MD Primary Care Provider Active S tart: January 27, 2025 End: January 27, 2025[facility] Mickie Arroyo ProviderActiveStart: January 27, 2025 End: January 27, 2025 Chief Complaint and Reason for Visit Chief Complaint Admit Date January 11, 2025 3 :30pm stomach pain, not eating January 27, 2 025 1:03pm Reason for Visit Admit Date Medicare annual wellness visit, subseque nt December 27, 2024 1:07pm Benign essential hypertension January 272024 1:03pm Early satiety January 27, 2025 1 :03pm Gastroesophageal reflux disease January 27, 2025 1:03pm Type 2 diabetes mellitus wit h hyperglycemia, without long-term current use January 27, 2025 1:03pm Allergies, Adverse Reactions, Alerts Allergen Type Severity Reaction Last Updated Verified Status Comments acetaminophen Allergy Unknown Gastrointestin al Upset January 27, 2025 1:34pm Yes Active brompheniramineAllergyUnknownUnknown ReactionNovember 2024 1:34pmYesActive ciprofloxacinAllergyUnknownHivesNovember 2024 1:34pmYesActivecodeineAllergy UnknownHivesNovember 2024 1:34pmYesActivediphenhydramineAllergyUnknownHives January 27, 2025 1:34pmYesActiveswellingerythromycin baseAllergyUnknown Gastrointestinal UpsetNovember 2024 1:34pmYesActivehiveshydrocortisone AllergyUnknownUnknown ReactionNovember 2024 1:34pmYesActivelatexAllergy UnknownRashNovember 2024 1:34pmYesActiveNSAIDS (Non-Steroidal Anti-Inflamma AllergyUnknownAbdominal PainNovember 2024 1:34pmYesActiveoxycodoneAllergy UnknownHivesNovember 2024 1:34pmYesActiveRashPenicillinsAllergyUnknownRash January 27, 2025 1:34pmYesActivephenylpropanolamineAllergyUnknownUnknown ReactionNovember 2024 1:34pmYesActivepovidone-iodineAllergyUnknownRash January 27, 2025 1:34pmYesActiveBacitracin-polymyxin BAllergyUnknownRash December 24, 2024 7:27amNoActive Social History Smoking Status Status Start Date End Date Date of Observa tion Never smoked tobacco (finding) December 27, 2024 1:40pm Observation Status Observation Response Date of Response Legal Sex Female (finding) [facility] Problems Active Problems Problem Diagnosis/Recorded Date Onset Date Stat us Sternum pain December 24, 2024 7:31am Unknown Act jannette Class 2 severe obesity due t o excess calories with serious comorbidity and body mass index (BMI) of 35.0 to 35.9 in adult December 24, 2024 7:28am Unknown Active Medicare annual wellness vis it, subsequent December 27, 2024 1:11pm Unknown Active Osteoarthritis of knees, bilateral December 24, 2024 7 :30am Unknown Active Benign essential hypertension December 24, 2024 7:28am Unknown Active Dyslipidemia December 24, 2024 7:29am Unknown Act jannette Bradycardia, unspecified December 24, 2024 7:28am Unkn own Active Closed fracture of styloid p rocess of right ulna with routine healing December 24, 2024 7:29am Unknown Act jannette Closed fracture of distal en d of right radius with delayed healing December 24, 2024 7:29am Unknown Active Fibromyalgia December 24, 2024 7:29am Unknown Act jannette Basal ganglia infarction December 24, 2024 7:27am Unkn own Active Early satiety January 27, 2025 1:54pm Unknown A ctive Lower extremity weakness December 24, 2024 7:30am Unkn own Active Encounter for long-term (cur rent) use of medications December 27, 2024 1:11pm Unknown Active Type 2 diabetes mellitus wit h hyperglycemia, without long-term current use of insulin December 24, 2024 7:31am Unknown Active MDD (major depressive disord er), recurrent episode, mild December 24, 2024 7:30am Unknown Active Seasonal allergic rhinitis due to pollen December 24, 2024 7:31am Unknown Active Chronic neck pain December 24, 2024 7:28am Unknown Active Lumbar disc narrowing December 24, 2024 7:30am Unknown Active Gastroesophageal reflux disease December 24, 2024 7:30 am Unknown Active Difficulty walking December 24, 2024 7:29am Unknown Active Osteopenia of lumbar spine December 24, 2024 7:30am Un known Active Medications Medication Status Dose Units Route Directions Qty Days Refills S tart Date Stop Date End Date Reason(s) Instructions Adherence Atorvastatin 40 mg tablet Active 40 MG PO Daily at bedtime December 23, 2024 11:00pmComplies with drug therapyAcetaminophen 325 mg tablet Svbkhk797WJVWLdbfv 6 hours as neededOctober 2024 11:00pmComplies with drug therapyCitalopram 10 mg pdbqpgZxrvwy93BIPMLyuhqUdadlai 2024 11:00pmComplies with drug therapySennosides-Docusate Sodium (Senna With Docusate Sodium) 8.6-50 mg aieexpWjjjau1EDB-VVDXBBmxhh at bedtimeOctuofl health - [facility] 2024 11:00pmComplies with drug therapyAspirin (Adult Aspirin Regimen) 81 mg tablet,delayed release (DR/EC) Eqhimk68PYQBUcueeZwmbkxh 2nd, 2025 11:00pmComplies with drug therapyPantoprazole 40 mg tablet,delayed release (DR/EC)Flarfg06GGJATptqk dailyOct2024 11:00pmComplies with drug therapyLosartan 25 mg qsrifuVlrisftznuat62NWGQNjczy December 23, 2024 11:00pmOctuofl health - [facility] hospital 2024 12:38pmNystatin 100,000 unit/gram rviyhpDccvph9GUDWIWGDDCRHZWkfvv times dailyOct2024 11:00pmComplies with drug therapyMetformin 500 mg tablet extended release 24 vqHfxxkh589EFTQ DailyOct2024 11:00pmComplies with drug therapy Vital Signs Vital Reading Result Reference Range Collection Date/Time Height 65 [in_i] December 27, 2024 12:69xrBwnzmn39.63 kgOctuofl health - jew[facility] hospital 2024 12:35pmBody Temperature 96.4 [degF]97.6-99.0[facility] 2024 12:35pmHeart Rate65 /qis17-100Vzhobde 2024 12:35pmRespiratory rate20 /bxk72-20Aamruxb 2024 12:35pmOxygen saturation by Pulse uwzosatd84 %95-100[facility] 2024 12:35pmBMI (Body Mass Index)31.8 kg/d9Haxqylu 2024 12:27biIsigsy17 [in_i]January 27, 2025 1:27ztVtzuol98.18 kgNovtsehootsooi [facility] 2024 1:32pmBody Vkrznslcnjt74.3 [degF] 97.6-99.0Novt[facility]ootso[facility] 2024 1:32pmHeart Rate67 /yln56-040Pbrnabdt 6th, 2025 1:32pmRespiratory rate22 /xsr96-48Icwhsxqh 6th, 2025 1:32pmOxygen saturation by Pulse nudkymoc30 %95-100[facility] 2024 1:32pmBP Rikaxtdv586 mm[Hg]100-140 January 27, 2025 1:32pmBP Icvcgkfth57 mm[Hg]60-100Nov2024 1:32pmBMI (Body Mass Index)33.6 kg/l6YmxnmgkiJanuary 27, 2025 1:32pm Advance Directives Advance Directive Response Recorded Date/ Time Advance Directives No December 27, 2024 12:02pm Insurance Providers Guarantor Elina Richards [place] Address [address] [facility] [address]Kjtcxre Info.Home Phone: Coverage Status Update:2024 Payer Group Member ID Coverage Type Subscriber Relationship to Subscriber Effective Date Expiration Date Medicare Outpatient [id number] E Winkler Id: [id number] [address] [facility] [address] Home Phone: Email: [email or web address] [facility] [id number] E Winkler Id: [id number] [address] [facility] [address] Home Phone: Email: [email or web address] [email or web address] Encounter Location(s) Arrival/Admit Date Discharge/Departure Date Discharge/Departure Disposition Provider(s) Departed Physician/ Provider Office Visit -[facility] Family Medicine [place] December 27, 2024 1:07pm December 27, 2024 2:40pm Discharged to home care or self care (routine discharge) Baltazar Arroyo MD Registered Recurring - Credible January 11, 2025 3 :30pm KARON Melendezeparted Physician/Provider Office Visit-[facility]:03[facility]24 2:04pmDischarged to home care or self care (routine discharge)Baltazar Arroyo MD Recent Diagnosis Onset Date Admit Date Medicare annual wellness visit, subsequent Unkno wn December 27, 2024 1:07pm Benign essential hypertension Unknown No vem2024 1:03pm Early satiety Unknown January 27 1:03pm Gastroesophageal reflux disease Unknown January 27, 2025 1:03pm Type 2 diabetes mellitus wit h hyperglycemia, without long-term current use Unknown January 27, 2025 1:03p m Assessments Diagnosis Onset Date Resolution Status Admit Date Medicare annual wellness visit, subseque nt acuteOctober 2024 1:07pmBenign essential hypertensionacuteNovember 2024 1:03pmEarly satietyacuteNovember 2024 1:03pmGastroesophageal reflux diseaseacuteNovember 2024 1:03pmType 2 diabetes mellitus with hyperglycemia, without long-term current useacuteNovember 2024 1:03pm Plan of Treatment Author Baltazar Arroyo [facility]AuthoredOctober 2024 1:47pmDue for labs. Discussed proper diet and regular aerobic exercise.?? Need aerobic exercise 5-6 days a week for 30 minutes at a time.?? Smaller portions and limit total calories.?? Tetanus every 10 years.?? Advised not to smoke.?? Future Tests Future scheduled test information is unavailable Pending Tests Test Name Ordered Date Scheduled Date Comprehensive Metabolic Panel December 27, 2024 1:23pm Future Visits Future appointment information is unavailable Future Procedures Procedure Name Ordered Date Scheduled Date NM gastric emptying study January 27, 2025 1:5 3pm A1C with Estimated Average GluOctober 2024 1:23pmComplete Blood Count Auto DiffOctober 2024 1:23pmLipid PanelOctuofl health - jewish hospital 2024 1:23pmMicroAlb Creat Ratio,UOctober 2024 1:23pmThyroid Stimulating HormoneOctober 2024 1:23pm Future Medications Future medication information is unavailable Patient Instructions Patient instructions are unavailable
--- OUTSIDE RECORDS SUMMARY | 2025-02-10 07:54 | XMS_ITS | Patient Health Record ---
Author Organization [facility] es Address [address] [facility] [place] [address] Care Team Providers Care Explosive Man Name Role Phone Earl Ravi Primary Care Provider Minerva Call Unavailable Reason For Referral No Information Plan Of Treatment No Information Insurance Providers Payer Name Payer Address Payer Phone Subscriber Number Group Number Insured Name Patient Relationship to Insured Coverage Start Date Coverage End Date [employer] [address] [place] [id number] MARGY PULIDO Self - patient is the insured 4
--- OUTSIDE RECORDS SUMMARY | 2025-02-10 07:59 | XMS_ITS | CCD ---
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 achievable. Ordering Provider: Roxanna SANTOS FINAL REPORT Dictated: 09/02/2024 3:00 pm Augustin Noriega MD Signed (Electronic Signature): 09/02/2024 3:00 pm Signed by: Augustin Noriega MD Transcribed by: WHITLEY Technologist: Rupa PORRASFormerly Vidant Beaufort Hospitallupis [facility] CenterCT Neckon [id number] NeckExam Date/Time: 09/02/2024 14:34 EDT Reason for Exam: CVA Report IMPRESSION: NO LARGE VESSEL INTRACRANIAL ARTERIAL OCCLUSION, FLOW-LIMITING STENOSIS, ANEURYSM, EVIDENCE OF DISSECTION, OR OTHER ACUTE FINDINGS IDENTIFIED. EXAM: CTA Head, CTA Neck DATE: 09/02/2024 2:23 PM CLINICAL HISTORY: CVA. COMPARISON: Noncontrast head and cervical spine CTs 09/01/2024, and head MRI from earlier 09/02/2024. TECHNIQUE: Spiral enhanced images were obtained of the aortic arch to the skull vertex after the infusion of approximately 100 mL of Isovue 370 contrast with head and neck CTA protocol. Luminal narrowings are estimated by NASCET criteria. Routine and volume rendered images were obtained on a three-dimensional workstation. All CT scans at this facility use dose modulation, iterative reconstruction, and/or weight based dosing when appropriate to reduce radiation dose to as low as reasonably achievable. HEAD CTA FINDINGS: There is no flow-limiting stenosis, branch occlusion, evidence of dissection, dural venous sinus thrombosis, vascular malformation, intracranial aneurysm, or developmental vascular variations of concern identified. Mild to moderate predominantly calcified plaquing of the cavernous carotids and V4 segments both vertebral arteries. 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 NECK CTA FINDINGS: There is no flow-limiting stenosis, evidence of dissection, or other acute findings identified. Mild plaquing of the aortic arch, great vessel origins and left carotid bifurcation. Mild to moderate degenerative changes of the cervical spine are again noted. Mild probable atelectasis of the visualized lung apices. GFR (mL/min/1/73m2) >60 Contrast: Isovue 370 Contrast amount in ml's: 100.00 Report Ordering Provider: Roxanna SANTOS FINAL REPORT Dictated: 09/02/2024 3:00 pm Augustin Noriega MD Signed (Electronic Signature): 09/02/2024 3:00 pm Signed by: Augustin Noriega MD Transcribed by: WHITLEY Technologist: Rupa PORRASFirelands Regional Medical Center South CampusCapillary Glucose POCon 74-40-4262Tfatoix [Mass/Vol]117 mg/fVSejs56-51JkbqrfFirelands Regional Medical Center South CampusComment on above:Result Comment: Notified RN/MDPerformed By: #### [id number] #### [facility] [address], [place] [address]Aptcmhq [Mass/Vol]99 mg/zXGnsruu42-21CzqjghFirelands Regional Medical Center South CampusComment on above:Result Comment: Notified RN/MDPerformed By: #### [id number] #### [facility] [address], [place] [address]Yorcqxk [Mass/Vol]91 mg/fRMwkihd94-36VcrsmqFirelands Regional Medical Center South CampusComment on above:Result Comment: Notified RN/MDPerformed By: #### [id number] #### [facility] [address], [place] [address]Csjvtgn [Mass/Vol]101 mg/rQPrye77-68EahojdFirelands Regional Medical Center South Campus Comment on above:Result Comment: Notified RN/MDPerformed By: #### [id number] #### [facility] [address], [place] [address]AT Note-Physicianon 92-44-2580OV Note-PhysicianED Note-Physician Basic Information Time Seen: Jessee RUSSO, Pineda Suárez 09/01/2024 11:07 Chief Complaint pt presents via [facility] after fall. pt states she slipped out of bed. pt c/o L hip pain, L knee pain, and L shoulder pain. denies hitting head or LOC. denies thinners. pt c/o weakness/fatigue x 3 days History of Present Illness A 79-year-old female reports emergency department with concerns of a fall. She comes via squad. Reports that she slipped while coming out of bed. She reports with family who states that she has been having progressive weakness over the last week. Reports that she slipped and hit her left hip left knee and having some left side abdominal pain. Reports some neck pain. Denies hitting head. Denies any blood thinners. Reports worsening weakness. Denies any new symptoms otherwise. She states is having some mild pain near her left hip mostly. Review of Systems No other aggravating or relieving factors no other associated symptoms no other prior treatments orcomplaints. Family: Reviewed and noncontributory Social: lives at home Review of systems negative unless otherwise specified in the HPI. Physical Exam Vitals & Measurements T: 36.8 ???C(Oral) HR: 51(Monitored) RR: 20 BP: 146/70 SpO2: 98% HT: 160.02 cm WT: 93.3 kg BMI: 36.44 General: The patient appears well and in no apparent distress. Patient is resting comfortably on bed. Afebrile Skin: Warm, dry, no pallor noted. No deformity of left hip. Mild abrasion left knee. Head: Normocephalic, atraumatic Neck: No JVD Eye: PERRLA, EOMI ENT: Moist mucus membranes Cardiovascular: Regular rate normal peripheral perfusion. Radial pulses +2 bilaterally. Pedal pulses +2 bilaterally Respiratory: No respiratory distress no accessory muscle use no obvious audible wheezing. Lung sounds clear to auscultation Chest Wall: no deformity. No chest wall tenderness Musculoskeletal: normal ROM, no deformity, no swelling. GI: No obvious distention soft nontender nondistended no guarding rebounding or rigidity. Pelvis stable Neurological: A&Ox4. moves all extremities equal strength and symmetry. No focal neurological defects.. Psychiatric: Cooperative and appropriate Medical Decision Making A 79-year-old female reports emerged department with concerns of a fall. Reports via squad. Exam reveals no obvious deformity. Complaint of left hip pain. Exam is otherwise relatively benign. She is alert and oriented. Due to concern to do a full trauma workup. Trauma workup was benign. No acute fractures. I did read the head CT as a chronic versus subacute right basal ganglier infarct since 01-21-25. Patient stated that because of her weakness, she wanted to go home with outpatient OT and PT. We did order PT and OT eval. during PT evaluation, she was only able to stand, cannot walk. Due to this, I did recommend admission for further workup. Patient is adamant of not being placed into a senior care. I discussed that she likely needs skilled facility. Family was appropriate with this. Didhave a very small skin abscess of the lower abdomen back to give her a dose of Keflex for her believes that she may have a yeast infection she was given a dose of Diflucan. I did discuss case with hospitalist was agreeable with admission of the patient. Assessment/Plan Contusion of left hip (S70.02XA: Contusion of left hip, initial encounter) Failure to thrive in adult (R62.7: Adult failure to thrive) Fall at home (W19.XXXA: Unspecified fall, initial encounter) Inability to walk (R26.2: Difficulty in walking, not elsewhere classified) Unspecified place in unspecified non-institutional (private) residence as the place of occurrence of the external cause (Y92.009: Unspecified place in unspecified non-institutional (private) residence as the place of occurrence of the external cause) Orders: cephalexin, 500 mg = 1 cap(s), Cap, Oral, Once, Stop date 09/01/24 14:14:00 EDT, STAT, Start date 09/01/24 14:14:00 EDT, 09/01/24 14:14:00 EDT fluconazole, 150 mg = 1 tab(s), Tab, Oral, Once, Stop date 09/01/24 14:14:00 EDT, STAT, Start date 09/01/24 14:14:00 EDT, 09/01/24 14:14:00 EDT morphine, 4 mg = 1 mL, Injection, IV Push, Once, Stop date 09/01/24 16:23:00 EDT, STAT, Start date 09/01/24 16:23:00 EDT, 09/01/24 16:23:00 EDT morphine, 4 mg = 2 mL, Injection, IV Push, Once PRN Pain, STAT, Start date 09/01/24 11:22:00 EDT, 09/01/24 11:22:00 EDT ondansetron, 4 mg = 2 mL, Injection, IV Push, Once, Stop date 09/01/24 11:22:00 EDT, STAT, Start date 09/01/24 11:22:00 EDT, 09/01/24 11:22:00 EDT ABO/Rh ABO/Rh History Check Antibody Screen Basic Metabolic Panel Blood Bank ID# CBC w/ Auto Diff CT Abdomen/Pelvis w/ Contrast CT Chest w/ Contrast CT Head or Brain w/o Contrast CT Spine Cervical w/o Contrast Drug Screen Urine ED Cardiac Monitoring ED Physician consult Hospitalist for continued care eGFR Ethanol Level Extra SST Tube Hepatic Function Panel Lactic Acid Lipase Level Occupational Therapy (more content not included)...[facility] CenterComment on above:Result Comment: Electronically Signed By: Jessee RUSSO, Pineda Suárez\.br\Date and Time Signed: 09/01/2517:50 EDT\.br\Electronically Co-Signed By: Rico Harrell M.D.\.br\Date and Time Co-Signed: 09/02/24 07:16 EDTExtra Kinde 48-19-1003KW Tube CollectedYesInvalid Interpretation [facility]ja Medical CenterComment on above:Performed By: #### [id number] #### [facility] [address], [place] [address]Lgekyhskprmjjnzvv Note - Case Manageron 09-02-2024 Interdisciplinary Note - Case ManagerInterdisciplinary Note - [employer] Patient is awake and alert in bed, previously rounded with Roxanna [employer]. Patient lives at home with son, daughter and grandkids , and [place] transport [place]. PT= SNF, and pateint is agreeable, prefersTCU, referral will be placed and precert will be needed. will update on acceptance once known Observation status reviewed. . PCP verified and insurance information reviewed and DME discussed. Contactinformation provided and white board updated. CRM spoke with homer Machado on phone, updates provided, she is agreeable with DC plan. Aware ofplan to stay in hospital todayNoMercy Health West HospitalComment on above:Result Comment: Electronically Signed By: Chantelle HINOJOSA, Lynda\.dayana\Date and Time Signed: 09/02/24 10:45 EDTInterdisciplinary Note - OT on 93-26-8257Wcnsrinvphlmtcmbr Note - OTInterdisciplinary Note - OT OT [facility] score 17/24 = SNF. Patient requires Min a and mod vc for safety for sit to stand at eob w/ FWW. Pt requires Mod A w/ dynamic standing and LB adls. Pt has impaired balance and increased weakness resulting in high fall risk. Inpatient OT services to follow 5d/wk to improve Ind andsafety w/ basic adls/transfers and standing adls.[facility] Medical CenterLactic Acidon 24-57-7339Jjosgx Acid Lvl1.7 mmol/LNormal0.5-2.2[facility] Comment on above:Performed By: #### [id number] #### [facility] [address], [place] [address]KLP Brain w/o Contraston 27-32-1541RVO Brain w/o ContrastExam Date/Time: 09/02/2024 11:31 EDT Reason for Exam: CVA Report IMPRESSION: SMALL SUBACUTE BASAL GANGLIA INFARCTS, NOTED. CHRONIC ATROPHIC AND INVOLUTIONAL CHANGES, NOTED. EXAM: MRI Brain w/o Contrast DATE: 09/02/2024 11:30 AM CLINICAL HISTORY: CVA. COMPARISON: Head CT 09/02/2024. TECHNIQUE: Multiplanar MR imaging of the head was performed without contrast, with fast brain protocol. FINDINGS: Acute Change: Approximately 2.2 x 1.0 cm ovoid area for a strictured diffusion predominantly within the anterior aspect of the right thalamus (Series 7, Image 15) and 5 to 6 mm area within the superolateral left putamen (Series 7, Image 16), consistent with subacute lacunar infarcts. Hemorrhage: No evidence of intracranial hemorrhage. Mass Lesion/ Mass Effect: No evidence of an intracranial mass or extra-axial fluid collection. No significant mass effect. Chronic Change: Mild to moderate predominantly supratentorial white matter changes most consistent with chronic small vessel ischemic disease. Parenchyma: Mild to moderate generalized volume loss for age Ventricles: Normal caliber and morphology. Skull Base: Hypothalamic and pituitary region are grossly normal. Craniocervical junction is normal. No significant marrow replacement process. Vasculature: Major intracranial arterial structures, and dural venous sinuses show typical flow void, suggesting patency. Other: Paranasal sinuses and mastoid air cells are essentially clear. The orbits are unremarkable. The extracranial soft tissues are unremarkable. Report Ordering Provider: Sadaf Field FINAL REPORT Dictated: 09/02/2024 12:23 pm Augustin Noriega MD Signed (Electronic Signature): 09/02/2024 12:23 pm Signed by: Augustin Noriega MD Transcribed by: WHITLEY Technologist: DANGELOUniversity Hospitals Lake West Medical CenterXR Wrist 3+ Views Righton [id number] Wrist 3+ Views RightExam Date/Time: 09/02/2024 11:47 EDT Reason for Exam: Fall 1 month ago, Right wrist pain;Pain, Traumatic Report IMPRESSION: MINIMALLY IMPACTED PROBABLE SUBACUTE DISTAL RIGHT RADIAL METAPHYSEAL FRACTURE. MILDLY DISPLACED SMALL ULNAR STYLOID FRACTURE. EXAM: XR Wrist 3+ Views Right DATE: 09/02/2024 11:34 AM CLINICAL HISTORY: Pain, Traumatic, Fall 1 month ago, Right wrist pain. COMPARISON: None available. TECHNIQUE: PA, lateral, and oblique radiographs of the right wrist were obtained. FINDINGS: A minimally impacted probably subacute fracture of the distal right radial metaphysis is present with minimal dorsal tilt of the articular surface. A mildly displaced 2 to 3 mm ulnar styloid fracture is present. Mild to moderate osteoarthritic changes, predominantly of the first carpometacarpal joint are noted. There is no other fracture, dislocation, worrisome bone destruction, radiodense foreign bodies, or other acute findings identified. Ordering Provider: Sadaf Field FINAL REPORT Dictated: 09/02/2024 1:11 pm Augustin Noriega MD Signed (Electronic Signature): 09/02/2024 1:11 pm Signed by: Augustin Noriega MD Transcribed by: WHITLEY Technologist: MIAUniversity Hospitals Lake West Medical CenterABO/Keyur 31-32-7432ZFM/RhPositiveInvalid Interpretation [facility] Comment on above:Performed By: #### [id number] #### [facility] [address], [place] [address]QLI/Rh History Checkon 98-93-8613UJM/Rh History CheckVerified Hx Blood TypeNormElyria Memorial HospitalComment on above:Performed By: #### [id number] #### [facility] [address], [place] [address]XSTXci 97-26-7052VYBF Gel InterpNegativeNormalFirelands Regional Medical Center South CampusComment on above:Performed By: #### [id number] #### [facility] [address], [place] [address]GTHIL BANKOrdered By: Karolyn Waller on 62-00-8015RGJ/Rh Interp PositiveInvalid Interpretation CodeMCBRIDE ORTHOP[facility] [place] BB SubsectionABSC Gel InterpNegative (09/01/24 11:44 AM)NormalMCBRIDE ORTHOP[facility]IC [facility] [place] BB SubsectionBMPon 59-07-8475Ynxeo gap [Moles/Vol] 12 mmol/LNormal6-16[facility] South CampusComment on above:Performed By: #### [id number] #### [facility] [address], [place] [address]RHH/Creat Ratio40 No UukfhYpwj33-36BvfsjzFirelands Regional Medical Center South Campus Comment on above:Performed By: #### [id number] #### [facility] [address], [place] [address]Jvaqpao [Mass/Vol]9.5 mg/dLNormal8.9-11.1[facility] Medical CenterComment on above:Performed By: #### [id number] #### [facility] [address], [place] [address]Dsnrrdik [Moles/Vol]106 mmol/PDkbfcw498-312UtslgmFirelands Regional Medical Center South CampusComment on above:Performed By: #### [id number] #### [facility] [address], [place] [address]CN4 [Moles/Vol]25 mmol/UHohirj10-54IvyesoFirelands Regional Medical Center South Campus Comment on above:Performed By: #### [id number] #### [facility] [address], [place] [address]Bwyijhsnrt [Mass/Vol]0.4 mg/dLLow0.5-1.3FMemorial Health SystemComment on above:Performed By: #### [id number] #### [facility] [address], [place] [address]Gcfpfwu [Mass/Vol]102 mg/mRNocezk15-602DsmtjfFirelands Regional Medical Center South CampusComment on above:Performed By: #### [id number] #### [facility] [address], [place] [address]Npllpmjij [Moles/Vol]3.9 mmol/LNormal3.5-5.3FMemorial Health SystemComment on above:Performed By: #### [id number] #### [facility] [address] [place] [address]Mrizpe [Moles/Vol]139 mmol/GWgwcmk840-976TfroowFirelands Regional Medical Center South CampusComment on above:Performed By: #### [id number] #### [facility] [address] [place] [address]Amte nitrogen [Mass/Vol]16 mg/dLNormal5-21Fire[facility] South CampusComment on above:Performed By: #### [id number] #### [facility] [address] [place] [address] ID#on [id number] Interpretation CodeFirelands Regional Medical Center South CampusComment on above:Performed By: #### [id number] #### [facility] [address], [place] [address]IWJ w/ Auto Diffon 90-90-7002Ioqpxhyl Absolute0.1 E9/LNormal 0.0-0.2FMemorial Health SystemComment on above:Performed By: #### [id number] #### [facility] [address], [place] [address]Flqnsmwct/100 WBC (Bld)0.8 %Normal0.0-2.0[facility] South CampusComment on above:Performed By: #### [id number] #### [facility] [address] [place] [address]Rdx Absolute0.1 E9/LNormal0.0-0.5FMemorial Health System Comment on above:Performed By: #### [id number] #### [facility] [address] [place] [address]Wesdxiydftb/100 WBC (Bld)1.1 %Normal0.0-8.0[facility] South CampusComment on above:Performed By: #### [id number] #### [facility] [address] [place] [address]Ukvimvtyxzz distribution width (RBC) [Ratio]14.0 %Normal 10.9-14.2FMemorial Health SystemComment on above:Performed By: #### [id number] #### [facility] [address] [place] [address]Ybdxltqqdh (Bld) [Volume fraction]40.8 %Buvczu86.0-46.0[facility] South CampusComment on above:Performed By: #### [id number] #### [facility] [address] [place] [address]Cgfyfowiwx (Bld) [Mass/Vol]13.8 g/fSWdziki09.0-16.0[facility] South CampusComment on above:Performed By: #### [id number] #### [facility] [address] [place] [address]Amzuy Absolute1.9 E9/LNormal1.0-4.0[facility] Comment on above:Performed By: #### [id number] #### [facility] [address] [place] [address]Xhfaqmaooqv/100 WBC (Bld)18.6 %Ownqnw20.0-50.0[facility] South CampusComment on above:Performed By: #### [id number] #### [facility] [address] [place] [address]ALD (RBC) [Entitic mass]29.4 ixDzdzhb99.0-34.0[facility] South CampusComment on above:Performed By: #### [id number] #### [facility] [address] [place] [address]TYES (RBC) [Mass/Vol]33.8 g/lEOzcfzo53.4-36.0[facility] South CampusComment on above:Performed By: #### [id number] #### [facility] [address], [place] [address]XRO (RBC) [Entitic vol]87.1 yGCednnc01.0-100.0[facility] Center South CampusComment on above:Performed By: #### [id number] #### [facility] [address] [place] [address]Igpf Absolute0.6 E9/LNormal0.2-1.0[facility] Comment on above:Performed By: #### [id number] #### [facility] [address] [place] [address]Bftqrsavz/100 WBC (Bld)6.3 %Normal4.0-14.0[facility] South CampusComment on above:Performed By: #### [id number] #### [facility] [address] [place] [address]Xqdkbl Absolute7.3 E9/LNormal2.0-7.5FMemorial Health System Comment on above:Performed By: #### [id number] #### [facility] [address], [place] [address]Mqkmwl Auto73.2 %Oxetjy50.0-75.0[facility] Comment on above:Performed By: #### [id number] #### [facility] [address] [place] [address]Gtfbswih071.0 E9/ZNbwnal931.0-500.0[facility] Comment on above:Performed By: #### [id number] #### [facility] [address], [place] [address]Nknimxgh mean volume (Bld) [Entitic vol]8.0 fLNormal6.4-10.8 [facility] South CampusComment on above:Performed By: #### [id number] #### [facility] [address] [place] [address]KDB6.7 E12/LNormal4.3-5.9FishUniversity of Maryland Rehabilitation & Orthopaedic InstituteComment on above:Performed By: #### [id number] #### [facility] [address], [place] [address]UQF49.0 E9/LNormal4.0-11.0[facility] South CampusComment on above:Performed By: #### [id number] #### [facility] [address] [place] [address]RQKERIFKDJqzlucw By: SYSTEM SYSTEM on 50-64-3359Njvocmcldkpz Screen method >1000 ng/mL Ql (U)NEGATIVE 7 (09/01/24 1:26 PM)NormalNEGATIVERemisol ChemComment on above:Interpretive Data: Negative Cutoff: <1000 ng/mLBarbiturates Screen Ql (U)NEGATIVE 8 (09/01/24 1:26 PM)NormalNEGATIVERemisol ChemComment on above:Interpretive Data: Negative Cutoff: <200 ng/mLBenzodiazepines Ql (U)NEGATIVE 1 (09/01/24 1:26 PM)NormalNEGATIVERemisol ChemComment on above:Interpretive Data: Negative Cutoff: <200 ng/mLCannabinoids Screen Ql (U)NEGATIVE 6 (09/01/24 1:26 PM)NormalNEGATIVERemisol ChemComment on above:Interpretive Data: Negative Cutoff: <50 ng/mLCocaine Ql (U)NEGATIVE 2 (09/01/24 1:26 PM)NormalNEGATIVERemisol ChemComment on above:Interpretive Data: Negative Cutoff: <300 ng/mLOpiates Screen Ql (U)NEGATIVE 4 (09/01/24 1:26 PM)NormalNEGATIVERemisol ChemComment on above:Interpretive Data: Negative Cutoff: <300 ng/mLPhencyclidine Screen method >25 ng/mL Ql (U)NEGATIVE 5 (09/01/24 1:26 PM)NormalNEGATIVERemisol ChemComment on above:Interpretive Data: Negative Cutoff: <25 ng/mL These drug screen results are to be used for medical (i.e., treatment) purposes only. Unconfirmed drug screening results must not be used for non-medical purposes (e.g., employment testing, legal testing).U FentanylNEGATIVE 17 (09/01/24 1:26 PM)NormalNEGATIVERemisol ChemComment on above:Interpretive Data: Negative Cutoff: <5 ng/mL These drug screen results are to be used for medical (i.e., treatment) purposes only. Unconfirmed drug screening results must not be used for non-medical purposes (e.g., employment testing, legal testing).Albumin [Mass/Vol]4.0 g/dL Normal3.3 - 5.0 gm/dLRemisol ChemAlbumin/Globulin [Mass ratio]1.2 {ratio}Normal 1.1 - 2.2Remisol ChemALP [Catalytic activity/Vol]54 [iU]/hFojmkc99 - 98 Int._Unit/LRemisol ChemALT No additional P-5'-P [Catalytic activity/Vol]12 [iU]/dNormal6 - 46 Int._Unit/LRemisol ChemAnion gap [Moles/Vol]12 mmol/LNormal6 - 16 mEq/LRemisol ChemAST [Catalytic activity/Vol]15 [iU]/dNormal5 - 43 Int._Unit/LRemisol ChemBilirubin [Mass/Vol]0.5 mg/dLNormal0.0 - 1.1 mg/dLRemisol ChemBilirubin.direct [Mass/Vol]0.0 mg/dLNormal0.0 - 0.4 mg/dLRemisol Chem Bilirubin.indirect [Mass or moles/Vol]0.5 mg/dLNormal0.1 - 0.9 mg/dLRemisol Chem Calcium [Mass/Vol]9.5 mg/dLNormal8.9 - 11.1 mg/dLRemisol ChemChloride [Moles/Vol]106 mmol/AVbyrgb671 - 111 mmol/LRemisol ChemCO2 [Moles/Vol]25 mmol/L Rzevof36 - 31 mmol/LRemisol ChemCreatinine [Mass/Vol]0.4 mg/dLLow0.5 - 1.3 mg/dL Remisol ChemEthanol Lvlmg/dLNormal<=11mg/dLRemisol ChemGFR/1.73 sq M.predicted MDRD (S/P/Bld) [Vol rate/Area]101 mL/min/1.73 n3Mygdfl>=59mL/min/1.73 h0Gyulsum ChemGlobulin (S) [Mass/Vol]3.3 g/dLNormal1.4 - 4.0 gm/dLRemisol ChemGlucose [Mass/Vol]102 mg/zBNbcmbm68 - 199 mg/dLRemisol ChemLactate [Moles/Vol]2.5 mmol/L High0.5 - 2.2 mmol/LRemisol ChemLipase [Catalytic activity/Vol]17 U/SJvnqbn69 - 58 unit/LRemisol ChemPotassium [Moles/Vol]3.9 mmol/LNormal3.5 - 5.3 mmol/L Remisol ChemProtein [Mass/Vol]7.3 g/dLNormal6.0 - 7.8 gm/dLRemisol ChemSodium [Moles/Vol]139 mmol/DVdhdlg206 - 145 mmol/LRemisol ChemTroponin HS19.80 pg/mL Yvbswf05.10 - 27.10 pg/mLRemisol ChemComment on above:Interpretive Data: The 95% CI (Confidence Interval) PPV (Positive Predictive Value) for myocardial i nfarction in females is 38 pg/mL, in males 51 pg/mL. The results should be used in conjunction withclinical conditions of myocardial infarction. (Access High Sensitivity Troponin I Instructions For Use, Rene Angelita, October 2017)Urea nitrogen [Mass/Vol]16 mg/dLNormal5 - 21 mg/dLRemisol ChemUrea nitrogen/Creatinine [Mass ratio]40 mg/gxBmua23 - 20Remisol ChemCOAGULATION Ordered By: Connie Aguilar on [id number] Coag (PPP) [Time]27.9 cMjkiwr45.1 - 36.5 second(s)[facility] [place] Auto CoagComment on above:Interpretive Data: Parameter 15 days - 4 weeks 1 - [...] the same coagulation reagent and instrumentation as [facility]. Currently there are no coagulation studies available worldwide for children to 14 days, andno normal ranges. Heparin therapeutic range (represented by Anti-Factor Xa activity of 0.2 - 0.4 U/mL) corresponds to PTT of 56.6 - 109.0 sec.INR Coag (PPP) [Relative time]1.03 {INR}Invalid Interpretation CodeMCBRIDE ORTHOPEDIC [facility] [place] Auto CoagComment on above:Interpretive Data: INR results are specifically intended to assess patients stabilized on long-term Anticoagulation therapy suggested INR s Less Intensive Anticoagulation 2.0 3.0 Conventional Range 3.0 4.5PT Coag (PPP) [Time]11.5 sNormal9.4 - 12.5 second(s) [facility] [place] Auto CoagComment on above:Interpretive Data: 15 days - 4 weeks 1 - 5 months 6 -11 months 1 5 years 6 10 years 11 -17 years Mean: 11.2 (9.5 12.6) Mean: 11.0 (9.7 12.8) Mean: 11.0 (9.8 13.0) Mean: 11.3 (9.9 13.4) Mean: 11.7 (10.0 14.6) Mean: 11.8 (10.0 - 14.1) Pediatric Reference ranges were obtained from a study by kate Geronimo. prepared from 1437 samples obtained at 7 different centers using the same coagulation reagent and instrumentation as [facility]. Currently there are no coagulation studies available worldwide for children to 14 days, andno normal ranges.CT Abdomen/Pelvis w/ Contraston [id number] Abdomen/Pelvis w/ ContrastExam Date/Time: 09/01/2024 12:28 EDT Reason for Exam: ABDOMINAL TRAUMA;Trauma Report PLEASE SEE CT Chest w/ Contrast REPORT DATED: 09/01/2024. All CT scans at this facility use dose modulation, iterative reconstruction, and/or weight based dosing when appropriate to reduce radiation dose to as low as reasonably achievable. GFR (mL/min/1/73m2) trauma protocol Contrast: Isovue 300 Contrast amount in ml's: 130.00 Ordering Provider: Pineda Hooks FINAL REPORT Dictated: 09/01/2024 12:44 pm Augustin Noriega MD Signed (Electronic Signature): 09/01/2024 12:44 pm Signed by: Augustin Noriega MD Transcribed by: WHITLEY Technologist: [facility] Contraston [id number] Chest w/ ContrastExam Date/Time: 09/01/2024 12:27 EDT Reason for Exam: CHEST TRAUMA, MOD-SEVERE;Trauma Report IMPRESSION: NO ACUTE FRACTURE OR RECENT POSTTRAUMATIC COMPLICATION IDENTIFIED.. URINARY BLADDER WALL THICKENING SUSPICIOUS FOR CYSTITIS, BUT MAY BE UNDER DISTENTION. EXAM: CT Chest w/ Contrast, CT Abdomen/Pelvis w/ Contrast, CT Spine Thoracic, CT Spine Lumbar DATE: 09/01/2024 11:39 AM CLINICAL HISTORY: Trauma, CHEST TRAUMA, MOD-SEVERE. Technologist Comments: w/ spine recons; trauma; pt to ED via EMS for fall. pt states she slipped out of bed. pt c/o L hip pain, L shoulder pain, headache, neck pain. denies thinners. pt c/o weakness/fatigue x 3 days. never smoked. hx tubal, gastric bypass. no ca hx. COMPARISON: 01/21/2023. TECHNIQUE: Spiral imaging was obtained of the chest, abdomen and pelvis after the infusion of approximately 130 mL of Isovue 300 contrast. Routine multiplanar reformatted reconstructions were performed; including dedicated reconstructions of the thoracic and lumbar spine. All CT scans at this facility use dose modulation, iterative reconstruction, and/or weight based dosing when appropriate to reduce radiation dose to as low as reasonably achievable. Unless otherwise stated, incidental findings identified in this report do not require routine follow-up imaging. CHEST CT FINDINGS: There are no acute fractures, evidence of pulmonary contusion, organized hematoma, pneumothorax, pleural or pericardial effusion, or other recent posttraumatic complication identified. Mild deformity from a chronic healed superior sternal fracture. Coronary artery calcifications are again noted. ABDOMEN AND PELVIS CT FINDINGS: There is no evidence of solid organ injury (within the limits of a noncontrast study), organized hematoma, free fluid, displaced fractures, or recent posttraumatic complication identified. Moderate wall thickening of a minimally distended urinary bladder is somewhat suspicious for cystitis. Report There are no other significant changes from 01/21/2023 identified. Previously described and chronic findings are again noted. THORACIC SPINE CT FINDINGS: There is no fracture, dislocation, evidence of instability, or acute paraspinal soft tissue abnormalities identified. Mild to moderate degenerative changes are again noted. LUMBAR SPINE CT FINDINGS: There is no fracture, dislocation, evidence of instability, or acute paraspinal soft tissue abnormalities identified. A chronic moderate concave compression deformity of the inferior endplate of L1 and moderately extensive degenerative changes are again noted. Technical Comments: GFR (mL/min/1/73m2) trauma protocol Contrast: Isovue 300 Contrast amount in ml's: 130.00 Ordering Provider: Pineda Hooks FINAL REPORT Dictated: 09/01/2024 12:44 pm Augustin Noriega MD Signed (Electronic Signature): 09/01/2024 12:44 pm Signed by: Augustin Noriega MD Transcribed by: WHITLEY Technologist: [facility] Head or Brain w/o Contraston [id number] Head or Brain w/o ContrastExam Date/Time: 09/01/2024 12:24 EDT Reason for Exam: HEAD TRAUMA, MOD-SEVERE;Other (please specify) Report IMPRESSION: NO ACUTE INTRACRANIAL HEMORRHAGE IDENTIFIED. PROBABLE SUBACUTE TO CHRONIC RIGHT BASAL GANGLIA INFARCTS SINCE 01/21/2023. OTHERWISE, STABLE ATROPHIC AND INVOLUTIONAL CHANGES. EXAM: CT Head or Brain w/o Contrast DATE: 09/01/2024 11:39 AM CLINICAL HISTORY: HEAD TRAUMA, MOD-SEVERE. Technologist Comments: trauma; pt to ED via EMS for fall. pt states she slipped out of bed. pt c/o L hip pain, L knee pain, and L shoulder pain, headache, neck pain. denies hitting head or LOC. denies thinners. pt c/o weakness/fatigue x 3 days. denies stroke, ca hx. COMPARISON: 01/21/2023. TECHNIQUE: Routine. All CT scans at this facility use dose modulation, iterative reconstruction, and/or weight based dosing when appropriate to reduce radiation dose to as low as reasonably achievable. FINDINGS: A well-defined approximately 1.8 x 0.8 cm ovoid hypodensity has developed within the medial right basal ganglia since 01/21/2023 (Series 2, Image 14), most likely a subacute or chronic ischemic lacunar infarct. There is no intracranial hemorrhage, mass effect, midline shift, extra-axial collection, evidence of hydrocephalus, skull fracture, or other recent ischemic infarct identified. Mild generalized cerebral volume loss and chronic white matter changes are again noted. The mastoid air cells and visualized paranasal sinuses are essentially clear. Report Ordering Provider: Pineda Hooks FINAL REPORT Dictated: 09/01/2024 12:31 pm Augustin Noriega MD Signed (Electronic Signature): 09/01/2024 12:31 pm Signed by: Augustin Noriega MD Transcribed by: WHITLEY Technologist: [facility] Cervical w/o Contraston [id number] Spine Cervical w/o ContrastExam Date/Time: 09/01/2024 12:24 EDT Reason for Exam: NECK TRAUMA, DANGEROUS INJURY MECHANISM;Trauma Report IMPRESSION: NO FRACTURE OR EVIDENCE OF CERVICAL SPINE INJURY IDENTIFIED. EXAM: CT Spine Cervical w/o Contrast DATE: 09/01/2024 11:39 AM CLINICAL HISTORY: Trauma, NECK TRAUMA, DANGEROUS INJURY MECHANISM. Technologist Comments: trauma; pt to ED via EMS for fall. pt states she slipped out of bed. pt c/o L hip pain, L knee pain, and L shoulder pain, headache, neck pain. denies hitting head or LOC. denies thinners. pt c/o weakness/fatigue x 3 days. denies stroke, ca hx. COMPARISON: 01/21/2023. TECHNIQUE: Spiral unenhanced imaging was obtained of the cervical spine, with routine reconstructions performed. All CT scans at this facility use dose modulation, iterative reconstruction, and/or weight based dosing when appropriate to reduce radiation dose to as low as reasonably achievable. FINDINGS: The spine is visualized from the craniovertebral junction through the T1-T2 level. There is no fracture, dislocation, or acute paraspinal soft tissue abnormalities identified. Mild to moderate degenerative changes are again noted. Ordering Provider: Pineda Hooks FINAL REPORT Dictated: 09/01/2024 12:33 pm Augustin Noriega MD Signed (Electronic Signature): 09/01/2024 12:33 pm Signed by: Augustin Noriega MD Transcribed by: WHITLEY Technologist: [facility] HospitalCapillary Glucose POCon [id number] [Mass/Vol]119 mg/dYGyok50-80KknkgfFirelands Regional Medical Center South CampusComment on above:Result Comment: Notified RN/MDPerformed By: #### [id number] #### [facility] [address] [place] [id number] [Mass/Vol]89 mg/gYRldkcs05-34ZjuuknFirelands Regional Medical Center South CampusComment on above:Result Comment: Cleaned MeterPerformed By: #### [id number] #### [facility] [address] [place] [id number] Clinical Summaryon [id number] Clinical SummaryED Clinical Summary [address] [address] ED Clinical Summary Person Information Name: ELINA PULIDO [facility] Age: 79 Years : 1945 Sex: Female Language: Honduran PCP: BALTAZAR MCGHEE MD Marital Status: Visit Id: Visit Reason: Trauma - minor; Shoulder pain-swelling; Knee pain-swelling; Weakness or fatigue; Fall; FALL Speciality: Acuity: 3 Enc Type: Observation Med Service: Medical Arrival: 09/01/2024 10:58:40 Discharge: LOS: 000 09:49 Checkin: 09/01/2024 10:58:40 Checkout: 09/01/2024 20:47:48 Dispo Type: Admitted as IP to this [facility] EVENTS: Event Name Event Status Request Date/Time Start Date/Time Complete Date/Time Arrive Complete 09/01/2024 10:58:40 09/01/2024 10:58:40 09/01/2024 10:58:40 Document Home Meds Request 09/01/2024 10:58:40 Triage Complete 09/01/2024 10:58:40 09/01/2024 11:04:05 09/01/2024 11:04:05 Bed Assign Complete 09/01/2024 10:58:40 09/01/2024 10:58:40 09/01/2024 10:58:40 Dr Exam Complete 09/01/2024 10:58:40 09/01/2024 11:07:15 09/01/2024 11:07:15 RN Exam Complete 09/01/2024 10:58:40 09/01/2024 11:13:19 09/01/2024 11:13:19 EKG Complete 09/01/2024 11:00:26 09/01/2024 11:11:06 Registration Complete 09/01/2024 11:07:15 09/01/2024 12:58:51 09/01/2024 12:58:51 Dr Exam Complete 09/01/2024 11:09:47 09/01/2024 11:09:47 09/01/2024 11:09:47 Trauma II Request 09/01/2024 11:12:33 Fall Risk Request 09/01/2024 11:13:19 NPO Request 09/01/2024 11:23:23 Pending Labs Complete 09/01/2024 11:23:23 09/01/2024 14:18:26 Lab Complete 09/01/2024 11:23:23 09/01/2024 14:18:26 Urine Collect Complete 09/01/2024 11:23:23 09/01/2024 14:18:26 Meds Admin Complete 09/01/2024 11:23:24 09/01/2024 12:41:05 RT Cancel 09/01/2024 11:23:24 09/01/2024 20:18:11 Patient Care Cancel 09/01/2024 11:23:24 09/01/2024 20:18:11 CT Complete 09/01/2024 11:23:24 09/01/2024 11:39:47 09/01/2024 12:28:20 X-Ray Complete 09/01/2024 11:23:24 09/01/2024 11:59:37 09/01/2024 12:46:37 Blood Collect Request 09/01/2024 11:23:24 Pending Labs Complete 09/01/2024 11:53:42 09/01/2024 11:53:42 09/01/2024 12:17:46 Lab Complete 09/01/2024 11:53:42 09/01/2024 11:53:42 09/01/2024 12:17:46 Pending Labs Cancel 09/01/2024 12:18:02 09/01/2024 15:26:11 Lab Cancel 09/01/2024 12:18:02 09/01/2024 15:26:11 Pending Labs Complete 09/01/2024 12:24:52 09/01/2024 12:24:52 09/01/2024 12:24:52 Wet Read Request 09/01/2024 12:46:37 Reg Complete Request 09/01/2024 12:58:51 Reg Bed Request Complete 09/01/2024 12:58:51 09/01/2024 12:58:51 09/01/2024 12:58:51 Pending Labs Complete 09/01/2024 13:19:35 09/01/2024 13:51:37 Meds Admin Complete 09/01/2024 14:15:17 09/01/2024 14:27:49 Pending Labs Complete 09/01/2024 14:35:42 09/01/2024 14:35:42 09/01/2024 14:35:43 Patient Care Request 09/01/2024 14:42:01 Consult Request 09/01/2024 16:01:08 Hospitalist Consult Request 09/01/2024 16:01:08 Meds Admin Complete 09/01/2024 16:23:16 09/01/2024 16:32:28 Observation Request 09/01/2024 18:15:14 Patient Care Request 09/01/2024 18:15:14 Patient Care Complete 09/01/2024 18:15:15 09/01/2024 20:00:15 Patient Care Request 09/01/2024 18:15:16 Medicare Form Complete 09/01/2024 18:15:17 09/01/2024 18:40:20 Patient Care Request 09/01/2024 18:15:17 Patient Care Request 09/01/2024 18:15:17 Pending Labs Complete 09/01/2024 19:54:51 09/01/2024 19:54:51 09/01/2024 19:54:51 Patient Care Request 09/01/2024 20:22:00 Meds Admin Request 09/01/2024 20:22:00 X-Ray Request 09/01/2024 20:22:00 MRI Request 09/01/2024 20:22:00 Meds Admin Request 09/01/2024 20:25:34 Pending Labs Request 09/01/2024 20:26:18 Lab Request 09/01/2024 20:26:18 Patient Care Request 09/01/2024 20:30:49 Meds Admin Request 09/01/2024 20:39:58 Patient Care Request 09/01/2024 20:39:58 ADDRESS: [address] [place] [id number] PHYS DOC NOTES: MEDICAL INFORMATION: Prescriptions Given: Medications to Continue with No Changes Other Medications acetaminophen (acetaminophen 500 mg Tab) 2 Tablets By Mouth every 8 hours as needed pain. bifidobacterium-lactobacillus (Probiotic 10 Ultra Strength) 1 Capsules By Mouth every day. calcium carbonate-magnesium chloride (Slow-Mag) 2 Tablets By Mouth every day. cetirizine 10 Milligram By Mouth every day. cholecalciferol (Vitamin D3 2000 intl units oral tablet) 1 Tablets By Mouth every day. citalopram (citalopram 10 mg Tab) 1 Tablets By Mouth once a day (at bedtime). fluticasone nasal (Flonase) 2 Sprays Nasal Inhalation every day as needed Congestion. metformin (metformin 500 mg ER Tab) 1 Tablets By Mouth at bedtime. omega-3 polyunsaturated fatty acids (Fish Oil 500 mg oral capsule) 500 Milligram By Mouth every day. pantoprazole (Pantoprazole [address] Tab) 1 Tablets By Mouth 2 times a day. senna (senna 8.6 mg Tab) 2 Tablets By Mouth once a day (at bedtime). PATIENT EDUCATION INFORMATION: Instructions: Follow up: DIAGNOSIS: 1:Fall at home; 2:Inability to walk; 3:Contusio (more content not included)... [facility] Patient Education Noteon [id number] Patient Education NoteED [facility] Education NoteNoMer[facility] ED Patient Summaryon [id number] Patient SummaryED Patient Summary [place] [id number] Patient Discharge Instructions Person Information Name: ELINA PULIDO Age: 79 Years Arrival Date: 09/01/2024 10:58:40 Discharge Diagnosis: 1:Fall at home; 2:Inability to walk; 3:Contusion of left hip; 4:Right wrist pain; 5:Lactic acidosis; 6:CVA (cerebrovascular accident); 7:Intertrigo; 8:Diabetes type 2; 9:Dyslipidemia; 10:Depression; 11:Obesity Primary Care Physician: BALTAZAR MCGHEE MD Provider Information Primary Provider: Rico Harrell M.D. Advanced Performance Architect:Pineda Hooks PA-C The exam and treatment you received in the Emergency Department were for an urgent problem and are not intended as complete care. It is important that you follow up with a doctor, nurse practitioner,or physician???s geriatric nurse assistant for ongoing care. If your symptoms become worse or you do not improve asexpected and you are unable to reach your usual health care provider, you should return to the Emergency Department. We are available 24 hours a day. ELINA PULIDO has been given the following list [...] opioids can be used to help relieve jfrmqmvq-dv-tjevwc pain and are often prescribed following a [...] as well, even when taken as directed: ??? Tolerance???meaning you might need to take more of the medication for the same pain relief ??? Physical dependence???meaning you have symptoms of withdrawal when a medication is stopped ??? Increased sensitivity to pain ??? Constipation ??? Nausea, vomiting, and dry mouth ??? Sleepiness and dizziness ??? Confusion ??? Depression ??? Low levels of testosterone that can result in lower sex drive, energy, and strength ??? Itching and sweating RISKS ARE GREATER WITH: ??? History of drug misuse, substance use disorder, or overdose ??? Mental health conditions (such as depression or anxiety) ??? Sleep apnea ??? Older age (65 years and older) ??? Avoid alcohol while taking prescription opioids. Also, unless specifically advised by your health care provider, medications to avoid include: ??? Benzodiazepines (such as Xanax or Valium) ??? Muscle relaxants (such as Soma or Flexeril) ??? Hypnotics (such as Ambien or Lunesta) ??? Other prescription opioids KNOW YOUR OPTIONS Talk to your health care provider about ways to manage your pain that don???t involve prescription opioids. Some of these options may actually work better and have fewer risks and side effects. Options may include: ??? Pain relievers such as acetaminophen, ibuprofen, and naproxen ??? Some medication that are also used for depression or seizures ??? Physical therapy and exercise ??? Cognitive behavioral therapy, a psychological, goal-directed approach, in which patients learn how to modify physical, behavioral, and emotional triggers of pain and stress. IF YOU ARE PRESCRIBED OPIOIDS FOR PAIN: ??? Never take opioids in greater amounts or more often than prescribed. ??? Follow up with your primary health care provider. o Work together to create a plan on how to manage your pain. o Talk about ways to help manage your pain that don???t involve prescription opioids. o Talk about any and all concerns and side effects. ??? Help prevent misuse and abuse o Never sell or share prescription opioids. o Never use another person???s prescription opioids. ??? Store prescription opioids in a secure place and out of reach of others (this may include visitors, children, friends, and family). ??? Safely dispose of unused prescription opioids: Find your community drug take-back program or your pharmacy mail-back program, or flush them down the toilet, following guidance from the Food and Drug Administration (www.fda.gov/Drugs/ResourcesForYou). ??? Visit www.cdc.gov/drugoverdose to learn about the risks of opioids abuse and overdose. ??? If you believe you may be struggling with addiction (more content not included)...NormalFirelands Regional Medical Center South CampusEthanolon [id number] Lvl<10 Normal<=11Fire[facility] South CampusComment on above:Performed By: #### [id number] #### [facility] [address], [place] [address]XXRMWNFSLTCosamir By: SYSTEM SYSTEM on [id number]/100 WBC (Bld)0.8 %Normal0.0 - 2.0 %Remisol HemeBasophils/Leukocytes Auto (Bld) [Pure # fraction]0.1 E9/LNormal0.0 - 0.2 E9/LRemisol HemeEosinophils (Bld) [#/Vol]0.1 E9/LNormal0.0 - 0.5 E9/LRemisol HemeEosinophils/100 WBC (Bld)1.1 %Normal0.0 - 8.0 %Remisol HemeErythrocyte distribution width (RBC) [Ratio]14.0 %Pijois09.9 - 14.2 %Remisol HemeHematocrit (Bld) [Volume fraction]40.8 %Ltoxdb99.0 - 46.0 % Remisol HemeHemoglobin (Bld) [Mass/Vol]13.8 g/lIWzyvrs94.0 - 16.0 gm/dLRemisol HemeLymphocytes (Bld) [#/Vol]1.9 E9/LNormal1.0 - 4.0 E9/LRemisol Heme Lymphocytes/100 WBC (Bld)18.6 %Chzslz09.0 - 50.0 %Remisol HemeMCH (RBC) [Entitic mass]29.4 hcGngzss33.0 - 34.0 pgRemisol HemeMCHC (RBC) [Mass/Vol]33.8 g/dL Lzudsq27.4 - 36.0 gm/dLRemisol HemeMCV (RBC) [Entitic vol]87.1 yNHgvnbp05.0 - 100.0 fLRemisol HemeMonocytes (Bld) [#/Vol]0.6 E9/LNormal0.2 - 1.0 E9/LRemisol HemeMonocytes/100 WBC (Bld)6.3 %Normal4.0 - 14.0 %Remisol HemeNeutrophils (Bld) [#/Vol]7.3 E9/LNormal2.0 - 7.5 E9/LRemisol HemeNeutrophils/100 WBC (Bld)73.2 % Hnxyyk95.0 - 75.0 %Remisol HemePlatelet mean volume (Bld) [Entitic vol]8.0 fL Normal6.4 - 10.8 fLRemisol HemePlatelets (Bld) [#/Vol]215.0 E9/QIivyum174.0 - 500.0 E9/LRemisol HemeRBC (Bld) [#/Vol]4.7 E12/LNormal4.3 - 5.9 E12/LRemisol HemeWBC corrected for nucl RBC Auto (Bld) [#/Vol]10.0 E9/LNormal4.0 - 11.0 E9/L Remisol HemeHep Func Panelon [id number] [Mass/Vol]4.0 g/dLNormal3.3-5.0 [facility] South CampusComment on above:Performed By: #### [id number] #### [facility] [address], [place] [address]Tqymhpq/Globulin [Mass ratio]1.2 {ratio}Normal1.1-2.2FMemorial Health SystemComment on above:Performed By: #### [id number] #### [facility] [address], [place] [address]Jrc Phos54 Int._Unit/AIippid98-94KmoipcFirelands Regional Medical Center South Campus Comment on above:Performed By: #### [id number] #### [facility] [address], [place] [address]QJI13 Int._Unit/LNormal6-46[facility] South CampusComment on above:Performed By: #### [id number] #### [facility] [address], [place] [id number] Int._Unit/LNormal5-43[facility] South CampusComment on above:Performed By: #### [id number] #### [facility] [address], [place] [address]Brxq Direct0.0 mg/dLNormal0.0-0.4FMemorial Health System Comment on above:Performed By: #### [id number] #### [facility] [address], [place] [address]Fhcd Indirect0.5 mg/dLNormal0.1-0.9[facility] Comment on above:Performed By: #### [id number] #### [facility] [address], [place] [address]Fhxt Total0.5 mg/dLNormal0.0-1.1FMemorial Health System Comment on above:Performed By: #### [id number] #### [facility] [address], [place] [address]Irjvhybn (S) [Mass/Vol]3.3 g/dLNormal1.4-4.0[facility] CampusComment on above:Performed By: #### [id number] #### [facility] [address], [place] [address]Htwzthn [Mass/Vol]7.3 g/dLNormal6.0-7.8[facility] South CampusComment on above:Performed By: #### [id number] #### [facility] [address], [place] [address]Estyuxkmifsvadthq Note - Social Workeron 06-11-2025 Interdisciplinary Note - Social WorkerInterdisciplinary Note - Manager Estate Patient Navigator consulted about going home w/ HHC. PT/OT consulted and evals done. PT/OT recommend going SNF. Pt was very adamant on wanting to go home. Pt was convinced that she should be admitted, however she is upset about it. Unsure if pt will be willing to go to SNF after INPT stay.NormalFirelands Regional Medical Center South CampusLactic Acidon 58-39-3870Kuvrtf Acid Lvl2.5 mmol/LHigh0.5-2.2FMemorial Health SystemComment on above:Performed By: #### [id number] #### [facility] [address], [place] [address]Rxdyzq Levelon 19-86-4789Lhosbh Lvl17 unit/WNznqfe63-97WyvgoyFirelands Regional Medical Center South CampusComment on above:Performed By: #### [id number] #### [facility] [address], [place] [address]SR & PTTon 79-38-2657UJG Coag (PPP) [Relative time]1.03 {INR} Invalid Interpretation CodeFirelands Regional Medical Center South CampusComment on above:Result Comment: INR results are specifically intended to assess patients stabilized on long-term Anticoagulation therapy suggested INR???s ???Less Intensive Anticoagulation??? 2.0 ??? 3.0 Conventional Range 3.0 ??? 4.5Performed By: #### [id number] #### [facility] [address], [place] [address]ZC59.5 second(s)Normal9.4-12.5FMemorial Health System Comment on above:Result Comment: 15 days - 4 weeks 1 - 5 months 6 -11 months 1 ??? 5 years 6 ??? 10 years 11 -17 years Mean: 11.2 (9.5 ??? 12.6) Mean: 11.0 (9.7 ??? 12.8) Mean: 11.0 (9.8 ??? 13.0) Mean: 11.3 (9.9 ??? 13.4) Mean: 11.7 (10.0 ??? 14.6) Mean: 11.8 (10.0 - 14.1) Pediatric Reference ranges were obtained from a study by Siddhartha Jimenez et al. prepared from 1437 samples obtained at 7 different centers using the same coagulation reagent and instrumentation as [facility]. Currently there are no coagulation studies available worldwide for children to 14 days, andno normal ranges.Performed By: #### [id number] #### [facility] [address], [place] [address]LEV66.9 second(s)Ejbynk61.1-36.5[facility] Comment on above:Result Comment: Parameter 15 days - 4 weeks 1 - [...] the same coagulation reagent and instrumentation as [facility]. Currently there are no coagulation studies available worldwide for children to 14 days, andno normal ranges. Heparin therapeutic range (represented by Anti-Factor Xa activity of 0.2 - 0.4 U/mL) corresponds to PTT of 56.6 - 109.0 sec.Performed By: #### [id number] #### [facility] [address], [place] [address]Duf-Ptgycnp Noteon 37-88-2843Awd-Arrival NotePre-Arrival Note Pre-Arrival Summary Name: , [facility] Current Date: 09/01/2024 10:59:13 EDT Gender: Female Date of : Age: 79 Pre-Arrival Type: EMS ETA: 09/01/2024 11:21:00 EDT Primary Care Physician: Presenting Problem: fall Pre-Arrival User: Fabio Talavera Referring Source: Location: [place] Completion Date/Time: 09/01/2024 10:51:00 [facility] Emergency Department Pre-Hospital Report Form Vital Signs: Pre-Hospital Report: Treatment in Route: Response to Treatment: Misc. Issues:NormalFirelands Regional Medical Center South CampusTroponinon 42-12-6620Bvmsphvw HS 19.80 pg/gBFdwchu31.10-27.10Fire[facility] South CampusComment on above:Result Comment: The 95% CI (Confidence Interval) PPV (Positive Predictive Value) for myocardial infarction in females is 38 pg/mL, in males 51 pg/mL. The results should be used in conjunction with clinical conditions of myocardial infarction. (Access High Sensitivity Troponin I Instructions For Use, [place], October 2017)Performed By: #### [id number] #### [facility] [address], [place] [address]P Drug Screenon 09-01-2024U Amph ScrNegativeNormalNEGATIVE [facility] CampusComment on above:Result Comment: Negative Cutoff: <1000 ng/mLPerformed By: #### [id number] #### [facility] [address], [place] [address]Z Cathy ScrNegativeNormalNEGWadsworth-Rittman Hospital Comment on above:Result Comment: Negative Cutoff: <200 ng/mLPerformed By: #### [id number] #### [facility] [address], [place] [address]Q Benzodia ScrNegativeNormalNEGWadsworth-Rittman Hospital Comment on above:Result Comment: Negative Cutoff: <200 ng/mLPerformed By: #### [id number] #### [facility] [address], [place] [address]M Cannab ScrNegativeNormalNEGATIVEFirelands Regional Medical Center South Campus Comment on above:Result Comment: Negative Cutoff: <50 ng/mLPerformed By: #### [id number] #### [facility] [address], [place] [address]A Cocaine ScrNegativeNormalNEGATIVEFirelands Regional Medical Center South Campus Comment on above:Result Comment: Negative Cutoff: <300 ng/mLPerformed By: #### [id number] #### [facility] [address], [place] [address]H FentanylNegativeNormalNEGATIVEFirelands Regional Medical Center South Campus Comment on above:Result Comment: Negative Cutoff: <5 ng/mL These drug screen results are to be used for medical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 Int._Unit/LFTMC RemisolALT No additional P-5'-P [Catalytic activity/Vol]32 [iU]/dNormal6 - 46 Int._Unit/LFT[facility] RemisolAnion gap [Moles/Vol]10 mmol/LNormal6 - 16 mEq/LFT[facility] RemisolAST [Catalytic activity/Vol]44 [iU]/dHigh5 - 43 Int._Unit/LFT[facility] RemisolBilirubin [Mass/Vol]0.8 mg/dLNormal0.0 - 1.1 mg/dLFTMC RemisolBilirubin.direct [Mass/Vol] 0.2 mg/dLNormal0.1 - 0.4 mg/dLFTMC RemisolBilirubin.indirect [Mass or moles/Vol] 0.6 mg/dLNormal0.1 - 0.9 mg/dLFTMC RemisolCalcium [Mass/Vol]9.4 mg/dLNormal8.9 - 11.1 mg/dLFTMC RemisolChloride [Moles/Vol]106 mmol/VMgfrda175 - 111 mmol/LFTMC RemisolCO2 [Moles/Vol]24 mmol/VYgzqwc65 - 31 mmol/LFTMC RemisolCreatinine [Mass/Vol]0.7 mg/dLNormal0.5 - 1.3 mg/dLFTMC RemisolEthanol [Mass/Vol]mg/dL Normal<=7mg/dLFTMC RemisolGFR/1.73 sq M.predicted among non-blacks MDRD (S/P/Bld) [Vol rate/Area]90 mL/min/1.73 x9Yeuehx>=59mL/min/1.73 m2[facility] Chem S Comment on above:Interpretive Data: Chronic kidney disease could be indicated at eGFR's of less than 60 mL/min/1.73m2. Kidney failure is indicated at less than 15 mL/min/1.73m2.Globulin (S) [Mass/Vol]3.8 g/dLNormal1.4 - 4.0 gm/dLFTMC RemisolGlucose [Mass/Vol]113 mg/xIWzhaeq12 - 199 mg/dLFTMC RemisolComment on above:Interpretive Data: If this glucose result represents a fasting glucose, interpretation should referto the following reference range: 55-99 mg/dLLactate [Mass/Vol]2.5 mmol/LHigh0.5 - 2.2 mmol/LFTMC RemisolLipase [Catalytic activity/Vol]35 U/PXhzphu00 - 58 unit/LFTMC RemisolMagnesium [Mass/Vol]2.0 mg/dL Normal1.3 - 2.4 mg/dLFT RemisolPotassium [Moles/Vol]4.0 mmol/LNormal3.5 - 5.3 mmol/LFTMC RemisolProtein [Mass/Vol]7.8 g/dLNormal6.0 - 7.8 gm/dLFT Remisol Sodium [Moles/Vol]136 mmol/EPmvpfk359 - 145 mmol/LFTMC RemisolTroponin I.cardiac [Mass/Vol]12.60 pg/mWXyxtbv03.10 - 27.10 pg/mLMCBR[facility] [place] RemisolComment on above: Interpretive Data: The 95% CI (Confidence Interval) PPV (Positive Predictive Value) for myocardial infarction in females is 38 pg/mL, in males 51 pg/mL. The results should be used in conjunction withclinical conditions of myocardial infarction. (Access High Sensitivity Troponin I Instructions For Use, [place], October 2017)Urea nitrogen [Mass/Vol]8 mg/dLNormal5 - 21 mg/dLMCBRIDE [facility] [place] RemisolUrea nitrogen/Creatinine [Mass ratio]11 mg/foHlxuoy89 - 20[facility] [place] RemisolCOAGULATION Ordered By: Ilana Christensen on 17-72-4930aHYJ Coag (PPP) [Time]29.1 vLhixlb23.1 - 36.5 second(s)[facility] [place] Auto CoagComment on above:Interpretive Data: Parameter 15 days - 4 weeks 1 - [...] the same coagulation reagent and instrumentation as [facility] [place]. Currently there are no coagulation studies available worldwide for children to 14 days, andno normal ranges. Heparin therapeutic range (represented by Anti-Factor Xa activity of 0.2 - 0.4 U/mL) corresponds to PTT of 56.6 - 109.0 sec.INR Coag (PPP) [Relative time]1.1 {INR}Invalid Interpretation CodeMCBRIDE [facility] [place] Auto CoagComment on above:Interpretive Data: INR results are specifically intended to assess patients stabilized on long-term Anticoagulation therapy suggested INR s Less Intensive Anticoagulation 2.0 3.0 Conventional Range 3.0 4.5PT Coag (PPP) [Time]12.4 sNormal9.4 - 12.5 second(s) [facility] [place] Auto CoagComment on above:Interpretive Data: 15 days - 4 weeks 1 - [...] the same coagulation reagent and instrumentation as [facility] [place]. Currently there are no coagulation studies available worldwide for children to 14 days, andno normal ranges.HEMATOLOGYOrdered By: SYSTEM SYSTEM on 67-51-1719Kjtylkmos/100 WBC (Bld)0.4 %Normal0.0 - 2.0 %[facility] [place] HemeAutoSSBasophils/Leukocytes Auto (Bld) [Pure # fraction]0.0 E9/LNormal0.0 - 0.2 E9/LFTMC HemeAutoSSEosinophils/100 WBC (Bld) 2.0 %Normal0.0 - 8.0 %[facility] [place] HemeAutoSSEosinophils/Leukocytes Auto (Bld) [Pure # fraction]0.2 E9/LNormal0.0 - 0.5 E9/LFTMC HemeAutoSSLymphocytes/100 WBC (Bld) 28.2 %Mewoah19.0 - 50.0 %[facility] HemeAutoSSLymphocytes/Leukocytes Auto (Bld) [Pure # fraction]2.4 E9/LNormal1.0 - 4.0 E9/LFT[facility] HemeAutoSSMonocytes/100 WBC (Bld)7.1 %Normal4.0 - 14.0 %[facility] HemeAutoSSMonocytes/Leukocytes Auto (Bld) [Pure # fraction]0.6 E9/LNormal0.2 - 1.0 E9/LFT[facility] HemeAutoSSNeutrophils/100 WBC (Bld) 62.3 %Tvpums86.0 - 75.0 %[facility] HemeAutoSSNeutrophils/Leukocytes Auto (Bld) [Pure # fraction]5.4 E9/LNormal2.0 - 7.5 E9/LFT[facility] HemeAutoSSHEMATOLOGYOrdered By: Ana Paula Rothman on 80-86-0071Kcgagbgpwgu distribution width (RBC) [Ratio]13.2 % Babosz64.9 - 14.2 %[facility] HemeAutoSSHematocrit (Bld) [Volume fraction]41.0 %Normal 34.0 - 46.0 %[facility] HemeAutoSSHemoglobin (Bld) [Mass/Vol]13.6 g/rGKupjgn41.0 - 16.0 gm/dLFTMC HemeAutoSSMCH (RBC) [Entitic mass]29.8 poLkzytr02.0 - 34.0 pgFTMC HemeAutoSSMCHC (RBC) [Mass/Vol]33.1 g/tZIxfamp82.4 - 36.0 gm/dLFTMC HemeAutoSS MCV (RBC) [Entitic vol]90.0 bGKjuwuv61.0 - 100.0 fLFTMC HemeAutoSSPlatelet mean volume (Bld) [Entitic vol]8.8 fLNormal6.4 - 10.8 fLFTMC HemeAutoSSPlatelets (Bld) [#/Vol]187.0 E9/ZIexqve263.0 - 500.0 E9/LFTMC HemeAutoSSRBC (Bld) [#/Vol] 4.6 E12/LNormal4.3 - 5.9 E12/LFTMC HemeAutoSSWBC corrected for nucl RBC Auto (Bld) [#/Vol]8.6 E9/LNormal4.0 - 11.0 E9/LFT[facility] HemeAutoSSComment on above:Result Comment: Slide reviewed by TLP.URINALYSISOrdered By: Ilana Case on 01-21-2023 Bilirubin Ql (U)Negative (01/21/23 4:04 PM)NormalNegativeMCBR[facility] [place] UA Auto SSClarity (U)Clear (01/21/23 4:04 PM)NormalClearFC UA Auto SSColor (U)Yellow (01/21/23 4:04 PM)NormalYellowFT UA Auto SSEpithelial cells.squamous LM.HPF (Urine sed) [#/Area]0-2 /HPFNormal0-2/HPFMCBRIDE [facility] [place] UA Auto SSGlucose Test strip (U) [Mass/Vol]Negative (01/21/23 4:04 PM)NormalNegativeMC[facility] [place] UA Auto SSHemoglobin Ql (U)Negative (01/21/23 4:04 PM)NormalNegativeMC[facility] [place] UA Auto SSKetones (U) [Mass/Vol]Negative (01/21/23 4:04 PM)NormalNegativeMC[facility] [place] UA Auto SSLithium.plasma/[place].RBC (Bld) [Mass ratio]0-3 /HPFNormal0-3/HPFMC UA Auto SSNitrite Ql (U)Negative (01/21/23 4:04 PM)NormalNegativeMC[facility] [place] UA Auto SSpH (U)8.0 *NA* (01/21/23 4:04 PM)Invalid Interpretation Code5.0 - 9.0[facility] [place] UA Auto SSProtein (U) [Mass/Vol]Negative (01/21/23 4:04 PM)NormalNegativeMC[facility] [place] UA Auto SSSpecific gravity (U) [Rel density]1.015 *NA* (01/21/23 4:04 PM)Invalid Interpretation Code1.005 - 1.030[facility] [place] UA Auto SSUA Spec DescClean Catch (01/21/23 4:04 PM)NormalMCBRIDE [facility] [place] UA Auto SSUrobilinogen Qn (U)0.3275586 {Zeb'U}/dLNormal0.0 - 1.0 EU/dLMCBRIDE [facility] [place] UA Auto SSWBC Auto Ql (U)Negative (01/21/23 4:04 PM)NormalNegativeMC[facility] [place] UA Auto SSWBC LM.HPF (Urine sed) [#/Area]0- 5 /HPFNormal0-5/HPFMCBRIDE [facility] [place] UA Auto SSCHEMISTRYOrdered By: Gemma Mendenhall on 07-04-2022 Glucose [Mass/Vol]103 mg/dOBpzk94 - 99 mg/dLMCBRIDE [facility] [place] POC SubsectionComment on above: Result Comment: Notified RN/MDPOC Device [id number] Interpretation CodeMCBRIDE [facility] [place] POC SubsectionPOC User [id number] Interpretation CodeMCBRIDE [facility] [place] POC SubsectionPOC UsernameSHEPHERRajinder BRITRANDYYInvalid Interpretation CodeMCBRIDE [facility] [place] POC SubsectionCHEMISTRYOrdered By: SYSTEM SYSTEM on 29-67-9197Ubyvf gap [Moles/Vol] 15 mmol/LNormal6 - 16 mEq/LFTMC RemisolChloride [Moles/Vol]103 mmol/KBinarq236 - 111 mmol/LFTMC RemisolCO2 [Moles/Vol]23 mmol/EAmazlb92 - 31 mmol/LFTMC Remisol Creatinine [Mass/Vol]0.7 mg/dLNormal0.5 - 1.3 mg/dLMCBRIDE [facility] [place] RemisolGFR/1.73 sq M.predicted among blacks MDRD (S/P/Bld) [Vol rate/Area]mL/min/1.73 o9Vzgpyl >=59mL/min/1.73 m2[facility] [place] Chem SGFR/1.73 sq M.predicted among non-blacks MDRD (S/P/Bld) [Vol rate/Area]mL/min/1.73 y3Mxpllr>=59mL/min/1.73 m2[facility] [place] Chem S Glucose [Mass/Vol]151 mg/mJSazotr58 - 199 mg/dLMCBRIDE [facility] [place] RemisolPotassium [Moles/Vol] 3.6 mmol/LNormal3.5 - 5.3 mmol/LFTMC RemisolSodium [Moles/Vol]137 mmol/LNormal 135 - 145 mmol/LFTMC RemisolUrea nitrogen [Mass/Vol]14 mg/dLNormal5 - 21 mg/dL [facility] [place] [place] RemisolHEMATOLOGYOrdered By: Zenon Garza on 46-11-6591Vuzuxyarrut distribution width (RBC) [Ratio]13.3 %Hskknw21.9 - 14.2 %FT HemeAutoSS Hematocrit (Bld) [Volume fraction]41.2 %Tqwidj20.0 - 46.0 %FT HemeAutoSS Hemoglobin (Bld) [Mass/Vol]13.8 g/oSHvzsjj73.0 - 16.0 gm/dLFTMC HemeAutoSSMCH (RBC) [Entitic mass]30.1 bkZvnofk51.0 - 34.0 pgFTMC HemeAutoSSMCHC (RBC) [Mass/Vol]33.6 g/gYHfvtph74.4 - 36.0 gm/dLFTMC HemeAutoSSMCV (RBC) [Entitic vol] 89.5 gTKomrwp44.0 - 100.0 fLFT HemeAutoSSPlatelet mean volume (Bld) [Entitic vol]9.4 fLNormal6.4 - 10.8 fLFT HemeAutoSSPlatelets (Bld) [#/Vol]216.0 E9/L Cuqjrc981.0 - 500.0 E9/LFTMC HemeAutoSSRBC (Bld) [#/Vol]4.6 E12/LNormal4.3 - 5.9 E12/LFTMC HemeAutoSSWBC corrected for nucl RBC Auto (Bld) [#/Vol]7.7 E9/LNormal 4.0 - 11.0 E9/LFTMC HemeAutoSSGLYCOHEMOGLOBIN A1Con 08-56-1664LGG RECOMMENDATION SEE BELOWNoProMedica Bay Park HospitalComment on above:Result Comment: ADA RECOMMENDED LIMIT 4.0 - 6.0 ADA THERAPEUTIC TARGET < 7.0 ACTION SUGGESTED > 7.0Performed By: #### A1C #### [facility] [address] [address] [address] Piedad MccabeGlucose [Mass/Vol]123 mg/dLNoProMedica Bay Park HospitalComment on above:Performed By: #### A1C #### [facility] [address] [address] [address] Piedad MccabeHbA1c (Bld) [Mass fraction]5.9 %Normal4.5-6.2The [facility] HospitalComment on above:Performed By: #### A1C #### [facility] [address] [address] [address] Piedad De La Garza AUTO DIFFon [id number] #0.1 103/ulNormal0.0-0.1The [facility] HospitalComment on above:Performed By: #### CBC #### [facility] [address] [place] [address] Dr. Piedad MccabeBasophils/100 WBC (Bld)1.1 %Normal0.2-2.0The [facility] Comment on above:Performed By: #### CBC #### [facility] [address] [place] [address] Dr. Piedad August #0.3 103/ulNormal0.0-0.7The [facility] HospitalComment on above: Performed By: #### CBC #### [facility] [address] [place] [address] Dr. Piedad Ulloaosinophils/100 WBC (Bld)2.9 %Normal0.9-7.0The [facility] Comment on above:Performed By: #### CBC #### [facility] [address] [place] [address] Dr. Piedad Ulloarythrocyte distribution width (RBC) [Ratio]13.7 %Ferfxx72.0-15.0 The [facility] HospitalComment on above:Performed By: #### CBC #### [facility] [address] [place] [address] Dr. Piedad MccabeHematocrit (Bld) [Volume fraction]42.6 %Dcpxpu12.0-48.0The [facility] HospitalComment on above:Performed By: #### CBC #### [facility] [address] [place] [address] Dr. Piedad MccabeHemoglobin (Bld) [Mass/Vol]13.6 g/mXHayias86.0-16.0The [facility] HospitalComment on above:Performed By: #### CBC #### [facility] [address] [place] [address] Dr. Piedad Early #0.02 10e3/ulNormal0.00-0.03The [facility] HospitalComment on above:Performed By: #### CBC #### [facility] [address] [place] [address] Dr. Piedad Early %0.2 %Normal0.0-0.5The [facility] HospitalComment on above: Performed By: #### CBC #### [facility] [address] [place] [address] Dr. Piedad Wallis #3.8 103/ulNormal1.2-3.8The [facility] HospitalComment on above:Performed By: #### CBC #### [facility] [address] [place] [address] Dr. Piedad Davilahocytes/100 WBC (Bld)39.8 %Pctdgw85.5-60.0[facility] ClinicCommymichigan medical center sault on above:Performed By: #### CBC #### [facility] [address] [place] [address] Dr. Piedad Christina DIFF REQNONormalThe [facility] HospitalComment on above: Performed By: #### CBC #### [facility] [address] [place] [address] Dr. Piedad Feliciano (RBC) [Entitic mass]29.4 prOdmcmp10.7-34.0The [facility] Medical Centerment on above:Performed By: #### CBC #### [facility] [address] [place] [address] Dr. Piedad Martinez (RBC) [Mass/Vol]31.9 g/sYBqkdsf11.9-35.2The [facility] Centerment on above:Performed By: #### CBC #### [facility] [address] [place] [address] Dr. Piedad Martinez (RBC) [Entitic vol]92.2 uVTbaamr57.0-99.0The [facility] Centerment on above:Performed By: #### CBC #### [facility] [address] [place] [address] Dr. Piedad Cary #0.7 103/ulNormal0.3-0.8The [facility] HospitalComment on above:Performed By: #### CBC #### [facility] [address] [place] [address] Dr. Piedad Schaferocytes/100 WBC (Bld)7.1 %Normal1.7-12.0The [facility] Comment on above:Performed By: #### CBC #### [facility] [address] [place] [address] Dr. Piedad MajorUT #4.6 103/ulNormal1.4-6.5The [facility] HospitalComment on above:Performed By: #### CBC #### [facility] [address] [place] [address] Dr. Piedad Majorutrophils/100 WBC (Bld)48.9 %Wfojdg11.0-75.0[facility]Comment on above:Performed By: #### CBC #### [facility] [address] [place] [address] Dr. Piedad MccabePlatelet mean volume (Bld) [Entitic vol]10.2 fLNormal9.5-13.5The [facility] HospitalComment on above:Performed By: #### CBC #### [facility] [address] [place] [address] Dr. Piedad MccabePLT212 103/bgFjheqo429-843Wjl [facility] HospitalComment on above: Performed By: #### CBC #### [facility] [address] [place] [address] Dr. Piedad MccabeRBC4.62 106/ulNormal4.20-5.40The [facility] HospitalComment on above:Performed By: #### CBC #### [facility] [address] [place] [address] Dr. Piedad MccabeWBC9.4 103/ulNormal4.0-11.0The [facility] HospitalComment on above: Performed By: #### CBC #### [facility] [address] [place] [address] Dr. Piedad MccabeMICROALBUMIN URINEon [id number], Urine7.3 ug/mLNormalNot Estab.The [facility] HospitalComment on above:Performed By: #### MALBLC #### [facility] [address] [address] [address] Piedad MccabeCBC AUTO DIFFon [id number] #0.1 103/ulNormal0.0-0.1The [facility] HospitalComment on above:Performed By: #### CBC ####[facility] [address] [address]Dr.Piedad MccabeBasophils/100 WBC (Bld)1.2 %Normal0.2-2.0The [facility] HospitalComment on above:Performed By: #### CBC ####[facility] [address] [place], [place] [address]DrMelonie ChangEO #0.2 103/ulNormal0.0-0.7The [facility] HospitalComment on above:Performed By: #### CBC ####[facility] [address] [place], [place] [address]DrMelonie ChangEosinophils/100 WBC (Bld)2.9 %Normal 0.9-7.0The [facility] HospitalComment on above:Performed By: #### CBC ####[facility] [address] [place], [place] [address]DrMelonie Mccabe Erythrocyte distribution width (RBC) [Ratio]12.7 %Mibyqk18.0-15.0The [facility] HospitalComment on above:Performed By: #### CBC ####[facility] [address] [place], [place] [address]DrMelonie MccabeHematocrit (Bld) [Volume fraction]41.2 %Kytyla70.0-48.0The [facility] HospitalComment on above:Performed By: #### CBC ####[facility] Nuuxixirk[address] [place], [place] [address]DrMelonie MccabeHemoglobin (Bld) [Mass/Vol]13.5 g/dL Djieuv71.0-16.0The [facility] HospitalComment on above:Performed By: #### CBC ####[facility] [address] [address]Dr. Piedad ChangIG #0.01 10e3/ulNormal0.00-0.03The [facility] HospitalComment on above: Performed By: #### CBC ####[facility] [address] [address]Dr.Piedad ChangIG %0.2 %Normal0.0-0.5The [facility] HospitalComment on above:Performed By: #### CBC ####[facility] Lrrvmfukmz9[address] [place], [place] [address]Dr.Piedad ChangLYMPH #2.8 103/ulNormal1.2-3.8The [facility] HospitalComment on above:Performed By: #### CBC ####[facility] Qlcuaggjmw93[address] [place], [place] [address]Dr. Piedad MccabeLymphocytes/100 WBC (Bld)42.8 %Njspgt70.5-60.0The [facility] Comment on above:Performed By: #### CBC ####[facility] Osxmjyriqn[address] [place], [place] [address]Dr.Piedad MccabeMANUAL DIFF REQNONormalThe [facility] HospitalComment on above:Performed By: #### CBC ####[facility] Euuopqdcob[address] [place], [place] [address]Dr.Piedad MccabeCUBA MEMORIAL [facility] (RBC) [Entitic mass]29.7 sgPdgzsz68.7-34.0The [facility] HospitalComment on above: Performed By: #### CBC ####[facility] Axrgweterr[address] [place], [place] [address]Dr.Piedad EliotUPSTATE UNIVERSITY [facility] (RBC) [Mass/Vol]32.8 g/dLNormal 29.9-35.2The [facility] HospitalComment on above:Performed By: #### CBC ####[facility] Yfgezuulop64[address] [place], [place] [address]Dr. Piedad EliotV (RBC) [Entitic vol]90.5 vTSlhtqy01.0-99.0The [facility] Comment on above:Performed By: #### CBC ####[facility] [address]fr[address] [address]Dr.Piedad MccabeMONO #0.4 103/ulNormal0.3-0.8 The [facility] HospitalComment on above:Performed By: #### CBC ####[facility] J[address]iriturj[address] [address]Dr.Piedad Mccabe Monocytes/100 WBC (Bld)6.6 %Normal1.7-12.0The [facility] HospitalComment on above: Performed By: #### CBC ####[facility] Bknwollntt[address] [place], [place] [address]Dr.Piedad MccabeNEUT #3.0 103/ulNormal1.4-6.5The [facility] HospitalComment on above:Performed By: #### CBC ####[facility] Ofsjoeglwx[address] [place], [place] [address]Dr.Piedad MccabeNeutrophils/100 WBC (Bld)46.3 %Hwchim05.0-75.0The [facility] HospitalComment on above:Performed By: #### CBC ####[facility] Nndjvkkzfz[address] [place], [place] [address]Dr.Piedad MccabePlatelet mean volume (Bld) [Entitic vol]10.8 fLNormal9.5-13.5 The [facility] HospitalComment on above:Performed By: #### CBC ####[facility] Wlbgjandtr[address] [place], [place] [address]Dr.Piedad FchtaROB237 103/yxEsbmjt299-564Vfl [facility] HospitalComment on above:Performed By: #### CBC ####[facility] Hyajankyjx92[address] [place], [place] [address]Dr. Piedad ChangRBC4.55 106/ulNormal4.20-5.40The [facility] HospitalComment on above: Performed By: #### CBC ####[facility] Yvtgbcttcz[address] [place], [place] [address]Dr.Piedad ChangWBC6.5 103/ulNormal4.0-11.0The [facility] HospitalComment on above:Performed By: #### CBC ####[facility] [address]ujk[address] [address]DrMelonie MccabeGLYCOHEMOGLOBIN A1Con [id number] RECOMMENDATIONSEE Mansfield HospitalCommymichigan medical center sault on above:Result Comment: ADA RECOMMENDED LIMIT 4.0 - 6.0 ADA THERAPEUTIC TARGET < 7.0 ACTION SUGGESTED > 7.0Performed By: #### A1C ####[facility] [address]we[address] [address]DrMelonie MccabeGlucose [Mass/Vol]117 mg/dLNoProMedica Bay Park HospitalComment on above:Performed By: #### A1C ####[facility] U[address] [address]DrMelonie MccabeHbA1c (Bld) [Mass fraction]5.7 %Normal4.5-6.2The [facility] on above:Performed By: #### A1C ####[facility] Auaayxvtnj18[address] [place], [place] [address]DrMelonie MccabeLIPID PROFILEon 97-79-1102XVPG-HDL RATIO NORMSEE [facility]field HospitalCommymichigan medical center sault on above:Result Comment: 3.3 - 4.4 LOW RISK 4.4 - 7.1 AVERAGE RISK 7.1 - 11.0 MODERATE RISK >11.0 HIGH RISKPerformed By: #### LIPID, BMP, TSH, AST, ALT #### [facility] [address] [place] [address] Dr. Piedad MccabeCholesterol [Mass/Vol]267 mg/dLCritically high<=200The [facility] on above:Performed By: #### LIPID, BMP, TSH, AST, ALT #### [facility] [address] [place] [address] Dr. Piedad Pinedaesterol in HDL [Mass/Vol]40 mg/fGGkildu83-58Zia [facility] on above:Performed By: #### LIPID, BMP, TSH, AST, ALT #### [facility] [address] [place] [address] Dr. Piedad Pinedaesterol in LDL [Mass/Vol]195.6 mg/dLMercy Health Urbana Hospitalment on above:Performed By: #### LIPID, BMP, TSH, AST, ALT #### [facility] [address] [place] [address] Dr. Piedad Banegas.total/Cholesterol in HDL [Mass ratio]6.7 {ratio} NormalThe [facility] HospitalCommymichigan medical center sault on above:Performed By: #### LIPID, BMP, TSH, AST, ALT #### [facility] [address] [place] [address] Dr. Piedad Velasquez NORMAL> or = 60 mg/dl - LOW CARDIOVASCULAR RISK <40 mg/dl - HIGH CARDIOVASCULAR RISKFirelands Regional Medical CenterCommymichigan medical center sault on above:Performed By: #### LIPID, BMP, TSH, AST, ALT #### [facility] [address] [place] [address] Dr. Piedad Novoa CALC NORMALSEE BELOWFirelands Regional Medical CenterComment on above:Result Comment: <100 mg/dl OPTIMAL 100 - 129 mg/dl NEAR OR ABOVE OPTIMAL 130 - 159 mg/dl BORDERLINE HIGH 160 - 189 mg/dl HIGH >190 mg/dl VERY HIGH Performed By: #### LIPID, BMP, TSH, AST, ALT #### [facility] [address] [place] [address] Dr. Piedad MccabeTriglyceride [Mass/Vol]157 mg/dLCritically high<=150[facility] ClinicCommymichigan medical center sault on above:Performed By: #### LIPID, BMP, TSH, AST, ALT #### [facility] [address] [place] [address] Dr. Piedad MccabeVLDL CALC31.4 mg/dLFirelands Regional Medical CenterComment on above: Performed By: #### LIPID, BMP, TSH, AST, ALT #### [facility] [address] [place] [address] Dr. Piedad MccabePROF CHEM 8 (BAS METB)on 41-25-6320Cjapf gap [Moles/Vol]13.3 mmol/LNormalMarietta Osteopathic ClinicComment on above:Performed By: #### LIPID, BMP, TSH, AST, ALT #### [facility] [address] [place] [address] Dr. Piedad MccabeCalcium [Mass/Vol]9.1 mg/dLNormal8.5-10.1[facility] Comment on above:Performed By: #### LIPID, BMP, TSH, AST, ALT #### [facility] [address] [place] [address] Dr. Piedad MccabeChloride [Moles/Vol]103 mmol/YLukijl41-629Tsa [facility] Comment on above:Performed By: #### LIPID, BMP, TSH, AST, ALT #### [facility] [address] [place] [address] Dr. Piedad MccabeCO2 [Moles/Vol]25.6 mmol/TMpasmc38.0-32.0[facility] Comment on above:Performed By: #### LIPID, BMP, TSH, AST, ALT #### [facility] [address] [place] [address] Dr. Piedad MccabeCreatinine [Mass/Vol]0.72 mg/dLNormal0.55-1.02The [facility] HospitalComment on above:Performed By: #### LIPID, BMP, TSH, AST, ALT #### [facility] [address] [place] [address] Dr. Piedad UlloaGFR-AF DUTCH>60Normal>=60The [facility] HospitalComment on above:Performed By: #### LIPID, BMP, TSH, AST, ALT #### [facility] [address] [place] [address] Dr. Piedad UlloaGFR-NON AF DUTCH>60Normal>=60The [facility] HospitalComment on above:Performed By: #### LIPID, BMP, TSH, AST, ALT #### [facility] [address] [place] [address] Dr. Piedad MccabeGlucose [Mass/Vol]116 mg/dLCritically ykxq33-032Kmb [facility] HospitalComment on above:Performed By: #### LIPID, BMP, TSH, AST, ALT #### [facility] [address] [place] [address] Dr. Piedad MccabePotassium [Moles/Vol]3.9 mmol/LNormal3.5-5.1The [facility] Comment on above:Performed By: #### LIPID, BMP, TSH, AST, ALT #### [facility] [address] [place] [address] Dr. Piedad MccabeSodium [Moles/Vol]138 mmol/JCmvafj962-309Gmv [facility] Comment on above:Performed By: #### LIPID, BMP, TSH, AST, ALT #### [facility] [address] [place] [address] Dr. Piedad MccabeUrea nitrogen [Mass/Vol]11.0 mg/dLNormal7.0-18.0The [facility] HospitalComment on above:Performed By: #### LIPID, BMP, TSH, AST, ALT #### [facility] [address] [place] [address] Dr. Piedad Sanchez nitrogen/Creatinine [Mass ratio]15.3 mg/mgNormalThe [facility] HospitalComment on above:Performed By: #### LIPID, BMP, TSH, AST, ALT #### [facility] [address] [place] [address] Dr. Piedad Wang [id number] [Catalytic activity/Vol]38 U/LCritically ahpt86-60Dkr [facility] HospitalComment on above:Performed By: #### LIPID, BMP, TSH, AST, ALT #### [facility] [address] [place] [address] Dr. Piedad Acevedo [id number] [Catalytic activity/Vol]47 U/JGwhuji70-81Tzy [facility] HospitalComment on above:Performed By: #### LIPID, BMP, TSH, AST, ALT #### [facility] [address] [place] [address] Dr. Piedad Gaytan 52-82-2184SON8.080 uIU/mLNormal0.358-3.740The [facility] HospitalComment on above:Performed By: #### LIPID, BMP, TSH, AST, ALT #### [facility] [address] [address] [address] Piedad MccabeCHEMISTRYOrdered By: SYSTEM SYSTEM on 20-15-6939Dwbvy gap [Moles/Vol]14 mmol/LNormal6 - 16 mEq/LFTMC RemisolCalcium [Mass/Vol]9.3 mg/dL Normal8.9 - 11.1 mg/dLFTMC RemisolChloride [Moles/Vol]107 mmol/HMzrzde317 - 111 mmol/LFTMC RemisolCO2 [Moles/Vol]21 mmol/DTzfcku56 - 31 mmol/LFTMC Remisol Creatinine [Mass/Vol]0.6 mg/dLNormal0.5 - 1.3 mg/dLFTMC RemisolGFR/1.73 sq M.predicted among blacks MDRD (S/P/Bld) [Vol rate/Area]mL/min/1.73 v9Hwjamy >=59mL/min/1.73 m2FT Chem SGFR/1.73 sq M.predicted among non-blacks MDRD (S/P/Bld) [Vol rate/Area]mL/min/1.73 m2Sfkbxv>=59mL/min/1.73 m2MCBR[facility] [place] Chem S Glucose [Mass/Vol]93 mg/mQWfehip31 - 199 mg/dLFTMC RemisolPotassium [Moles/Vol] 4.2 mmol/LNormal3.5 - 5.3 mmol/LFTMC RemisolSodium [Moles/Vol]138 mmol/LNormal 135 - 145 mmol/LFTMC RemisolTroponin I.cardiac [Mass/Vol]7.70 pg/mLLow10.10 - 27.10 pg/mLFTMC RemisolUrea nitrogen [Mass/Vol]13 mg/dLNormal5 - 21 mg/dLFTMC RemisolUrea nitrogen/Creatinine [Mass ratio]22 mg/uxDrcj22 - 20[facility] Remisol HEMATOLOGYOrdered By: SYSTEM SYSTEM on 12-52-0373Xiabcwdzi/100 WBC (Bld)1.3 % Normal0.0 - 2.0 %[facility] HemeAutoSSBasophils/Leukocytes Auto (Bld) [Pure # fraction]0.1 E9/LNormal0.0 - 0.2 E9/LFTMC HemeAutoSSEosinophils/100 WBC (Bld)2.3 %Normal0.0 - 8.0 %[facility] HemeAutoSSEosinophils/Leukocytes Auto (Bld) [Pure # fraction]0.2 E9/LNormal0.0 - 0.5 E9/LFTMC HemeAutoSSLymphocytes/100 WBC (Bld) 38.3 %Pjthej42.0 - 50.0 %[facility] HemeAutoSSLymphocytes/Leukocytes Auto (Bld) [Pure # fraction]3.2 E9/LNormal1.0 - 4.0 E9/LFTMC HemeAutoSSMonocytes/100 WBC (Bld)8.9 %Normal4.0 - 14.0 %[facility] HemeAutoSSMonocytes/Leukocytes Auto (Bld) [Pure # fraction]0.7 E9/LNormal0.2 - 1.0 E9/LFTMC HemeAutoSSNeutrophils/100 WBC (Bld) 49.2 %Hhnzey05.0 - 75.0 %[facility] HemeAutoSSNeutrophils/Leukocytes Auto (Bld) [Pure # fraction]4.1 E9/LNormal2.0 - 7.5 E9/LFTMC HemeAutoSSHEMATOLOGYOrdered By: Jimena Salas on 06-87-8879Lqkhrfjhfeo distribution width (RBC) [Ratio]13.2 % Vrdyof55.9 - 14.2 %[facility] HemeAutoSSHematocrit (Bld) [Volume fraction]39.2 %Normal 34.0 - 46.0 %[facility] HemeAutoSSHemoglobin (Bld) [Mass/Vol]13.4 g/kXYekqqa38.0 - 16.0 gm/dLFTMC HemeAutoSSMCH (RBC) [Entitic mass]30.6 qyVdziuj13.0 - 34.0 pgFTMC HemeAutoSSMCHC (RBC) [Mass/Vol]34.2 g/mTCxwvgx13.4 - 36.0 gm/dLFTMC HemeAutoSS MCV (RBC) [Entitic vol]89.5 zWTgqggz71.0 - 100.0 fLFTMC HemeAutoSSPlatelet mean volume (Bld) [Entitic vol]8.2 fLNormal6.4 - 10.8 [facility] HemeAutoSSPlatelets (Bld) [#/Vol]205.0 E9/KQvevmw625.0 - 500.0 E9/[facility] HemeAutoSSRBC (Bld) [#/Vol] 4.4 E12/LNormal4.3 - 5.9 E12/[facility] HemeAutoSSWBC corrected for nucl RBC Auto (Bld) [#/Vol]8.3 E9/LNormal4.0 - 11.0 E9/LFOU [facility] [place] HemeAutoSS Vital Signs Date TimeVital SignValuePerforming JbdecbtqdHqgrmooc39-02-4573 13:32-0500Body rwnusi893.02 cmBaltazar Mcghee MD Work Phone: [phone]11-06-2025 13:32-0500 Body mass index (BMI) [Ratio]33.6 kg/m2Baltazar Mcghee MD Work Phone: [phone] [address]11-06-2025 13:32-0500 Body okuzgpyhzgm70.3 [degF]Baltazar Mcghee MD Work Phone: [phone] [address]11-06-2025 13:32-0500 Body kxhlxo10.18 kgBaltazar Mcghee MD Work Phone: [phone] [address]11-06-2025 13:32-0500 Diastolic blood ikzrjlab38 mm[Hg]Baltazar Mcghee MD Work Phone: [phone])[phone] [place], [place] [address]081011-06-2025 13:32-0500 Heart rate67 /minBaltazar Mcghee MD Work Phone: [phone] [place], [place] [address]1-06-2025 13:32-0500 Respiratory rate22 /minBaltazar Mcghee MD Work Phone: [phone] [address]11-06-2025 13:32-0500 SaO2% (BldA) [Mass fraction]97 %Baltazar Mcghee MD Work Phone: [phone] [place], [place] [address]1-06-2025 13:32-0500 Systolic blood vrwldgoz361 mm[Hg]Baltazar Mcghee MD Work Phone: [facility]10-06-2025 13:35-0400 Body lioojz061.1 cmSy[facility] Center10-06-2025 13:35-0400Body mass index (BMI) [Ratio]31.8 kg/b1CdxbchbhcSycamore Medical Center10-06-2025 13:35-0400Body vbgywjaumwg56.4 [degF][facility]10-06-2025 13:35-0400Body eihblz03.63 kgSycamore Medical Center10-06-2025 13:35-0400Heart rate65 /[facility]10-06-2025 13:35-0400Respiratory rate20 /[facility]10-06-2025 13:35-0309EjT4% (BldA) [Mass fraction]96 %[facility] 12-01-2024 13:09-0400Body bzkycu395 cmTW[facility] Work Phone: [facility] CenterDjcwcbqieu28-89-0565 13:09-0400Body mass index (BMI) [Ratio]34.54 kg/m2[facility] Work Phone: [facility] CenterKcrriczjon21-20-1819 13:09-0400Body ahbtoj91.45 kgPromedica Bay Park Hospital PA Work Phone: [facility] CenterFaflzuhcvz41-41-8193 12:54-0400Body vexyax879 cm [facility] PA Work Phone: [facility] CenterWcgvnqstmk86-13-9114 12:54-0400Body mass index (BMI) [Ratio]34.54 kg/m2[facility] Work Phone: [facility] CenterIithtxzbhc42-80-3415 12:54-0400Body nnfucw59.45 kgPromedica Bay Park Hospital PA Work Phone: [facility] CenterWlpmsbhfny51-50-7597 13:25-0400Body pgohfz062 cm Baltazar Mcghee MD Work Phone: [facility] CenterDxlurdporb11-95-5717 13:25-0400Body mass index (BMI) [Ratio]34.54 kg/m2Baltazar Mcghee MD Work Phone: NOK[facility] CenterDitqhrfsxl88-35-3068 13:25-0400Body temperature 97.3 [degF]Baltazar Mcghee MD Work Phone: NOK[facility] CenterVusipumvna08-69-2212 13:25-0400Body grygmc82.45 kgBaltazar Mcghee MD Work Phone: [facility] CenterGgqfhyxkps58-67-5892 13:25-0400Diastolic blood qerwvudu69 mm[Hg]Baltazar Mcghee MD Work Phone: [facility] CenterUqmqzyjdts48-74-7223 13:25-0400Heart rate65 /min Baltazar Mcghee MD Work Phone: [facility] CenterRlttqtaofh06-68-1904 13:25-0400Respiratory rate22 /minBaltazar Mcghee MD Work Phone: [facility] CenterDjjhifdgar27-56-4889 13:25-9202KlC6% (BldA) [Mass fraction]96 %Baltazar Mcghee MD Work Phone: [facility] CenterFxvzpyrjfs31-52-2340 13:25-0400Systolic blood dqtadpxu874 mm[Hg]Baltazar Mcghee MD Work Phone: [facility] CenterUopvrtoijn62-49-9783 10:10-0400Body pridqf523 cm [facility] Work Phone: NOK[facility] CenterNmjaxjqxty11-08-6772 10:10-0400Body mass index (BMI) [Ratio]35.43 kg/m2[facility] PA Work Phone: NOK[facility] CenterAvyxgoisdn61-81-5348 10:10-0400Body gslitk72.72 kgPromedica Bay Park Hospital PA Work Phone: NOK[facility] CenterWyngdgafem50-77-4569 13:28-0400Body vuuyex067 cm Baltazar Mcghee MD Work Phone: NOK[facility] CenterMcdfarjksf49-27-1214 13:28-0400Body mass index (BMI) [Ratio]35.43 kg/m2Baltazar Mcghee MD Work Phone: [facility] CenterZgmatneykp34-81-3122 13:28-0400Body temperature 97.5 [degF]Baltazar Mcghee MD Work Phone: [facility] CenterFjkhoedtrr75-97-8205 13:28-0400Body bayxom70.72 kgBaltazar Mcghee MD Work Phone: [facility] CenterImmwnahltu67-35-8581 13:28-0400Diastolic blood uqrigixu47 mm[Hg]Baltazar Mcghee MD Work Phone: [facility] CenterEucagmjouu82-21-4258 13:28-0400Heart rate68 /min Baltazar Mcghee MD Work Phone: [facility] CenterUyfapdiufa83-61-5961 13:28-0400Respiratory rate22 /minBaltazar Mcghee MD Work Phone: [facility] CenterWwrmiuwqvb28-10-7958 13:28-8369TzI7% (BldA) [Mass fraction]97 %Baltazar Mcghee MD Work Phone: [facility] CenterVgaulhshvg46-55-4358 13:28-0400Systolic blood cxheqygd671 mm[Hg]Baltazar Mcghee MD Work Phone: [facility] CenterHykbbovkdd35-75-3357 11:36-0400Body lvckii561 cm Baltazar Mcghee MD Work Phone: [facility] CenterJmmfsejidh50-76-8369 11:36-0400Body mass index (BMI) [Ratio]38.09 kg/m2Baltazar Mcghee MD Work Phone: [facility] CenterEdaxnghrnk50-60-1351 11:36-0400Body temperature 97.3 [degF]Baltazar Mcghee MD Work Phone: [facility] CenterSxmdwbtfbx13-19-5587 11:36-0400Body amkyua62.52 kgBaltazar Mcghee MD Work Phone: [facility] CenterFolurgfrpv48-26-2737 11:36-0400Diastolic blood tzudztxj32 mm[Hg]Baltazar Mcghee MD Work Phone: [facility] CenterVwrimdqjha00-48-4997 11:36-0400Heart rate72 /min Baltazar Mcghee MD Work Phone: [facility] CenterOfaonxazrm82-69-3017 11:36-0400Respiratory rate20 /minBaltazar Mcghee MD Work Phone: [facility] CenterOjfavaevhx24-38-3890 11:36-0702UpH5% (BldA) [Mass fraction]98 %Baltazar Mcghee MD Work Phone: [facility] CenterUtqdefwzlo15-14-9709 11:36-0400Systolic blood mm[Hg]Baltazar Mcghee MD Work Phone: [facility] CenterOzwyavvtzz11-22-2886 14:48-0400Hourly Rounding Estella Ritter [address] [place], [place] 7272211-04-2023 14:48-0400 Promise to ReturnKaitlin Ritter [address]11-04-2023 14:00-0400Blood Pressure LocationKaitlin Ritter [address] [place], [place] 133[address]1-04-2023 14:00-0400 Diastolic blood mkzvtuyc64 mm[Hg]Estella Ritter [address] [place], [place] [address]1-04-2023 14:00-0400Mean blood gonewjmp725 mm[Hg]Estella Ritter [address] [place], [place] 133[address]1-04-2023 14:00-4879NhK0% (BldA) [Mass fraction]96 %Estella Ritter [address] [place], [place] 133[address]1-04-2023 14:00-0400 Systolic blood akcgzbhg413 mm[Hg]Estella Ritter [address] [place], [place] 7272211-04-2023 13:19-0400 Hourly RoundingKaitlin Ritter [address] [place], [place] 7272211-04-2023 13:19-0400 Promise to ReturnKaitlin Ritter [address] [place], [place] 7272211-04-2023 12:38-0400 Hourly RoundingKaitlin Ritter [address] [place], [place] 7272211-04-2023 12:38-0400 Promise to ReturnKaitlin Ritter [address] [place], [place] 7272211-04-2023 11:48-0400Heart rate57 /minKaitlin Ritter [address] [place], [place] 7272211-04-2023 11:48-9622TfQ4% (BldA) [Mass fraction]97 %Estella Ritter [address] [place], [place] 7272211-04-2023 11:47-0400 Diastolic blood zghmgwod32 mm[Hg]Estella Ritter [address] [place], [place] 7272211-04-2023 11:47-0400Mean blood mm[Hg]Estella Ritter [address] [place], [place] 7272211-04-2023 11:47-0400 Systolic blood hynnhuca675 mm[Hg]Estella Ritter [address] [place], [place] 7272211-04-2023 11:46-0400Body ynihqtvdpem94.7 [degF]Estella Ritter [address] [place], [place] 7272211-04-2023 07:43-0400Heart rate54 /minKaitlin Ritter [address] [place], [place] 7272211-04-2023 07:43-5959XqO3% (BldA) [Mass fraction]98 %Estella Ritter [address] [place], [place] 7272211-04-2023 07:40-0400 Diastolic blood tcehsqdz54 mm[Hg]Estella Ritter [address] [place], [place] 7272211-04-2023 07:40-0400Mean blood zsetmjum33 mm[Hg]Estella Ritter [address] [place], [place] 7272211-04-2023 07:40-0400 Systolic blood ynazkedy815 mm[Hg]Estella Ritter [address] [place], [place] 7272211-04-2023 07:35-0400Body egaojdcqxrv71.88 [degF]Estella Ritter [address] [place], [place] 7272211-03-2023 20:14-0400Mean blood xulcljgl335 mm[Hg]Estella Ritter [address] [place], [place] 7272211-03-2023 20:14-0400Body qbvmfvwuehr48.88 [degF]Estella Ritter [address] [place], [place] 7272211-03-2023 00:30-0400Body ocxwbrapqdw63.7 [degF]Estella Ritter [address] [place], [place] 7272211-03-2023 00:30-0400 Respiratory rate16 /minKaitlin Ritter [address] [place], [place] 7272211-02-2023 02:23-0400Blood Pressure LocationKaitlin Ritter [address] [place], [place] 7272211-02-2023 02:23-0400Body vyfplwzlnua30.42 [degF]Estella Ritter [address] [place], [place] 7272211-02-2023 02:23-0400Mean blood mm[Hg]Estella Ritter [address] [place], [place] 7272211-02-2023 02:23-0400 Respiratory rate18 /minKaitlin Ritter [address] [place], [place] 7272211-01-2023 20:00-0400Blood Pressure LocationKaitlin Ritter [address] [place], [place] 7272211-01-2023 12:24-0400 Respiratory rate18 /minKaitlin Ritter [facility]11-01-2023 04:26-0400Heart rate52 /minKaitlin Ritter [address]11-01-2023 04:26-0400Mean blood mfzbadqn28 mm[Hg]Estella Ritter [address]10-31-2023 22:19-0400Heart rate79 /minKaitlin Ritter [address] [place], [place] [id number] 21:39-0400 Respiratory rate22 /minKaitlin Ritter [address] [place], [place] 7272210-31-2023 21:01-0400 Respiratory rate20 /minKaitlin Ritter [address] [place], [place] 7272210-31-2023 20:01-0400 Respiratory rate18 /minKaitlin Ritter [address] [place], [place] 7272210-31-2023 14:13-0400Heart rate56 /minKaitlin Ritter [address] [place], [place] 1331004-13-2023 10:00-0400 Diastolic blood ayvfqafi13 mm[Hg]Zenon MONTENEGROL [facility]04-13-2023 10:00-0400Heart rate59 /minMichael NILL [facility]04-13-2023 10:00-0400Mean blood yglxkqoa188 mm[Hg]Zenon MONTENEGROL [facility]04-13-2023 10:00-0400 Systolic blood palktkwy766 mm[Hg]Zenon NILL [facility]04-13-2023 09:45-0400 Diastolic blood mm[Hg]Zenon NILL [facility]04-13-2023 09:45-0400Heart rate58 /minMichael NILL [facility] [facility]04-13-2023 09:45-0400Mean blood sxhweszm632 mm[Hg]Zenon NILL [facility]04-13-2023 09:45-0400 Respiratory rate13 /minMichael NILL [facility]04-13-2023 09:45-2950DyX1% (BldA) [Mass fraction]98 %Zenon NILL [facility]04-13-2023 09:45-0400 Systolic blood uaropbmg643 mm[Hg]Zenon NILL [facility]04-13-2023 09:30-0400 Diastolic blood zkbunswy78 mm[Hg]Zenon NILL [facility]04-13-2023 09:30-0400Heart rate57 /minMichael NILL [facility]04-13-2023 09:30-0400Mean blood yfcbcofy868 mm[Hg]Zenon NILL [facility]04-13-2023 09:30-0400 Respiratory rate15 /minMichael NILL [facility]04-13-2023 09:30-0400 Systolic blood mslzsali455 mm[Hg]Zenon NILL [facility]04-13-2023 08:32-0400Body .24 [degF]Eznon NILL [facility]04-13-2023 07:25-0400Blood Pressure LocationMichael NILL [facility]04-13-2023 07:25-0400Body rieuypjxgro50.7 [degF]Zenon MONTENEGROL [facility]03-23-2023 15:35-0400Heart rate65 /minMichael NILL [facility]03-23-2023 15:35-1805OiC0% (BldA) [Mass fraction]97 %Zenon MONTENEGROL [facility]03-23-2023 15:34-0400 Diastolic blood nwlzhfus22 mm[Hg]Zenon MONTENEGROL [facility]03-23-2023 15:34-0400Mean blood ontxbqpm059 mm[Hg]Zenon MONTENEGROL [facility]03-23-2023 15:34-0400 Systolic blood evlcbhme033 mm[Hg]Zenon PORTER [facility]03-23-2023 15:34-0400 Respiratory rate17 /minMichael NILL [facility]03-09-2023 13:19-0500Blood Pressure LocationMichael NILL [phone]-RnwnwOhiohealth [facility] [place] 05-30-2022 13:19-0500Diastolic blood scigqmqn46 mm[Hg]Zenon MONTENEGROL [phone]-GtllgOhiohealth [facility]ert [facility] [place] 05-30-2022 13:19-0500Heart rate66 /minMichael NILL [phone]-XuaggOhiohealth [facility] [place] 05-30-2022 13:19-0500Respiratory rate20 /minMichael NILL [phone]-AjeslOhiohealth Van [facility] [place] 05-30-2022 13:19-0500Systolic blood ytfxeulc522 mm[Hg]Zenon NILL [phone]-Blvqi[address] [place] [address] [facility] [place] 08-29-2021 21:31-0400Diastolic blood mm[Hg]Fantasma Jessica [facility]06-08-2022 21:31-0400Heart rate55 /minNoah Jessica [address]06-08-2022 21:31-0400Mean blood mm[Hg]Fantasma Jessica [address] [place], [place] 5530306-08-2022 21:31-0400 Respiratory rate16 /minNoah Jessica [address]06-08-2022 21:31-4997GwQ2% (BldA) [Mass fraction]96 %Fantasma Jessica [address] [place], [place] 5530306-08-2022 21:31-0400 Systolic blood toxetjen984 mm[Hg]Fantasma Jessica [address] [place], [place] 5530306-08-2022 21:30-0400Heart rate54 /minNoah Jessica [facility]06-08-2022 21:30-6286UcY1% (BldA) [Mass fraction]95 %Fantasma Jessica [address] [place], [place] 5530306-08-2022 20:22-0400Body dacsbheibxx12.24 [degF]Fantasma Jessica [address] [place], [place] 5530306-08-2022 20:22-0400 Diastolic blood mm[Hg]Fantasma Jessica [address] [place], [place] 5530306-08-2022 20:22-0400Heart rate58 /minNoah Jessica [address]06-08-2022 20:22-0400 Respiratory rate16 /minNoah Jessica [address] [place], [place] 0676206-08-2022 20:22-0176LgU7% (BldA) [Mass fraction]97 %Fantasma Jessica [address] [place], [place] 0676206-08-2022 20:22-0400 Systolic blood pdnobhop856 mm[Hg]Fantsama Jessica [address] [place], [place] 0676206-08-2022 19:59-0400Body hadhbsovytk57.24 [degF]Fantasma Jessica [address] [place], [place] 0676206-08-2022 19:59-0400 Diastolic blood xrqgechy39 mm[Hg]Fantasma Jessica [address] [place], [place] 0676206-08-2022 19:59-0400Heart rate66 /minNoah Jessica [address] [place], [place] 0676206-08-2022 19:59-0400 Respiratory rate16 /minNoah Jessica [address] [place], [place] 0676206-08-2022 19:59-0400 Systolic blood mm[Hg]Fantasma Jessica [address] [place] [address] Encounters Encounter DateEncounter TypeCare ProviderFacilityStart: 01-27-2025 End: 08-39-7622mwgznqsathCqvz Naderer MD Work Phone: -[facility] ClydeStart: 01-27-2025 End: 11-44-8225Lgerkdc encounter procedureBaltazar Mcghee MD-[facility] Work Phone: Start: 61-60-9317Jjchevcvlk Kerline Petty MDKLICKITAT VALLEY HEALTH CredibleStart: 12-28-2024 End: 61-31-6754Whttbt flowsheetAddie [facility] Start: 12-28-2024 End: 44-09-3823Pxttqf flowsheetDanielle Lundberg [facility] Physical Therapy Start: 12-28-2024 End: 78-02-6469iqcxtpbdnjRdgxxxoe LundbergVirginia Mason Hospital Physical TherapyComment on above:Closed fracture of right distal radius and ulna, with routine healing, subsequent encounter (Primary Dx); Weakness of both lower extremities; Difficulty walkingStart: 70-40-6377Ysycznt encounter procedureOhioHealth O'Bleness Hospitaltart: 12-27-2024 End: 89-59-7077sikxfzcwdvNNE [facility] Work Phone: Start: 12-27-2024 End: 81-50-6760Qscqeyd encounter procedureBaltazar Mcghee [facility] [place] Work Phone: Start: 49-32-7346Udsrhgjuof RecurringSteven Petty MDKLICKITAT VALLEY HEALTH CredibleStart: 54-31-1140qcxqpkxgofSvaqjofdrmz Abdelaziz Facility:[facility] Hospitaltart: 12-01-2024 End: 21-94-8559Lpuymkl encounter procedureTomagaly Whitney PA Work Phone: noSharon Hospital OrthopaedicsComment on above:Closed fracture of right distal radius and ulna, with routine healing, subsequent encounter (Primary Dx)Start: 12-01-2024 End: 33-18-5545lwfwqctuzeSRNT D HILLSNot AvailableStart: 12-01-2024 End: 18-46-1318aritgfufgrGGOT D HILLSNot AvailableStart: 11-25-2024 End: 40-81-4649Nnxpwe flowsheetJeanette Depoy SPEECH THERAPIST TECHNICIAN Work Phone: [facility] Physical TherapyStart: 11-25-2024 End: 43-03-1317Jwrgom flowsheetJeanette Depoy SPEECH THERAPIST TECHNICIAN Work Phone: [facility] Physical TherapyStart: 11-25-2024 End: 26-32-2350pjmzcdvalcKwptrmzu Depoy SPEECH THERAPIST TECHNICIAN Work Phone: [facility] [place] [facility] TherapyComment on above:Closed fracture of right distal radius and ulna, with routine healing, subsequent encounter (Primary Dx); Weakness of both lower extremities; Difficulty walkingStart: 10-25-2024 End: 07-91-8933Nckwny flowsheetChristine A Pleasnick PT Work Phone: [facility] [place] [facility] TherapyStart: 10-25-2024 End: 80-75-1212Mjawid flowsheetChristine A Pleasnick PT Work Phone: [facility] [place] [facility] TherapyStart: 10-25-2024 End: 48-59-2217rezymfkqvuFgkuwocnk A Pleasnick PT Work Phone: [facility] [place] Physical TherapyComment on above:Closed fracture of right distal radius and ulna, with routine healing, subsequent encounter (Primary Dx); Weakness of both lower extremities; Difficulty walkingStart: 10-06-2024 End: 21-30-2142Wmegfci encounter procedureTomagaly ANDERSON Work Phone: noms NB ORTHOComment on above:Closed fracture of right distal radius and ulna, with routine healing, subsequent encounter (Primary Dx) Start: 10-06-2024 End: 39-24-2302nrtbsyctgxIAKR D HILLSNot AvailableStart: 10-06-2024 End: 47-40-7080xdsklghyabDKFL D HILLSNot AvailableStart: 10-01-2024 End: 64-95-7415tmhavxpordFOPK NONEFacility:FTMCStart: 09-23-2024 End: 77-68-8866Xzakbo flowsKelly Mcghee MD Work Phone: N[facility] CWM FMStart: 09-23-2024 End: 86-15-5690Qtenzs Stephani Mcghee MD Work Phone: [facility] CWM FMStart: 09-23-2024 End: 10-56-5101Ooccwj outpatient visit 25 minutesBaltazar Mcghee MD Work Phone: [facility] CWM FMComment on above:Basal ganglia infarction (HCC) (Primary Dx); Closed fracture of distal end of right radius with delayed healing, unspecified fracture morphology, subsequent encounter; Closed nondisplaced fracture of styloid process of right ulna with routine healing, subsequent encounter; Benign essential hypertension ; Type 2 diabetes mellitus with hyperglycemia, without long-term current use of insulin (HCC); Dyslipidemia ; MDD (major depressive disorder), recurrent episode, mildStart: 09-23-2024 End: 32-95-5807tulxweuoejTQWR NADERERNot AvailableStart: 09-15-2024 End: 26-12-3749EepicxOmpz Naderer MD Work Phone: noms CWM FMComment on above:Candidiasis of skin (Primary Dx)Start: 09-13-2024 End: 76-69-6720bqnakscskjBwevkgs K ClingmanFacility:FT Extended CareStart: 09-13-2024 End: 39-35-7555Grb-SiteMichael K ClingmanExtended Care Start: 09-09-2024 End: 53-47-5005Fdsafxc encounter procedureTomagaly ANDERSON Work Phone: noms NB ORTHOComment on above:Right wrist pain (Primary Dx); Closed fracture of right distal radius and ulna, initial encounter; Mallet deformity of left little fingerStart: 09-09-2024 End: 91-70-7961puclnrxepaGNBM D HILLSNot AvailableStart: 09-09-2024 End: 22-82-3326fdxdmwonviLMJL D HILLSNot AvailableStart: 09-06-2024 End: 78-84-3118ezzmlbnbwrBdrvxru HARWOODFacility:FT Extended CareStart: 09-06-2024 End: 70-54-5771Ftm-SiteAlan [facility] Start: 09-03-2024 End: 62-99-1721mrgtxdhayzCxldhey HARWOODFacility:FTMCStart: 09-03-2024 End: 89-90-2376Vncpgxuuud and management of inpatientAlan MANZANO [facility] Start: 09-02-2024 End: 00-53-9689Xufbrbicfr and management of Mike Walker Facility:FTMCStart: 01-05-9446alytybsugqHpeihahg J. AnderleFacility:FTMCStart: 20-24-5842Gpwlowkva department patient visitAstrit Corina ClineariFacility:FTMCStart: 09-01-2024 End: 70-86-9717Iqajfpudwy and management of Mike Walker [facility] Start: 06-22-2024 End: 50-07-6109Rjsvfn flowsKelly Mcghee MD Work Phone: noms CW FMStart: 06-22-2024 End: 14-86-3099Jpiire flowsKelly Mcghee MD Work Phone: noms CW FMStart: 06-22-2024 End: 57-04-2623Cvtgallrg Result EncounterBaltazar Mcghee MD Work Phone: noms External Department UnsolicitedStart: 06-22-2024 End: 49-97-9776Uohhqd outpatient visit 25 minutesBaltazar Mcghee MD Work Phone: noms CW FMComment on above:Type 2 diabetes mellitus with hyperglycemia, without long-term current use of insulin (CMS/[facility]) (Primary Dx); MDD (major depressive disorder), recurrent episode, mild (HCC) (CMS/[facility]); Gastroesophageal reflux disease without esophagitis; Seasonal allergic rhinitis due to pollen; Primary osteoarthritis of both knees; Class 2 severe obesity due to excess calories with serious comorbidity and body mass index (BMI) of35.0 to 35.9 in adult (CMS/HCC); Type 2 diabetes mellitus with other specified complication; Hyperlipidemia, unspecified (CMS/HCC)Start: 06-22-2024 End: 80-01-8295ahxsggrrwfXQJF NADERERNot AvailableStart: 12-30-2023 End: 15-80-1150Zplxzj flowsCatalina Huffman DO Work Phone: NOHE CI ORTHOPAEDICSStart: 12-30-2023 End: 57-86-1140Qigbjt flowsheetTyrell Huffman DO Work Phone: NOIX CI ORTHOPAEDICSStart: 12-30-2023 End: 81-07-5759Ivujdx outpatient visit 10 minutesTyrell Huffman DO Work Phone: NOEO CI ORTHOPAEDICSComment on above:Arthritis of left knee (Primary Dx); S/P total knee replacement, leftStart: 12-26-2023 End: 03-06-6595Blkeafjpj Result EncounterBaltazar Mcghee MD Work Phone: noms External Department UnsolicitedStart: 12-26-2023 End: 65-26-8097Yvqdnwdlm Result Vanessa Mcghee MD Work Phone: NOZP External Department UnsolicitedStart: 12-22-2023 End: 37-38-8148Uabpkm Stephani Mcghee MD Work Phone: [facility] CWM FMStart: 12-22-2023 End: 40-71-6562Qtkdmu Stephani Mcghee MD Work Phone: NORE CWM FMStart: 12-22-2023 End: 15-70-2155Smkwvzakm Result EncounterBaltazar Mcghee MD Work Phone: NOFI External Department UnsolicitedStart: 12-22-2023 End: 63-40-2785Zlpytu Andry Mcghee MD Work Phone: N[facility] CWM FMComment on above:Dyslipidemia (CMS/HCC) (Primary Dx)Start: 12-22-2023 End: 32-18-2885Jtzwqm outpatient visit 25 minutesBaltazar Mcghee MD Work Phone: [facility] CWM FMComment on above:Type 2 diabetes mellitus with hyperglycemia, without long-term current use of insulin (CMS/HCC) (Primary Dx); MDD (major depressive disorder), recurrent episode, mild (HCC) (CMS/HCC); Primary osteoarthritis of both knees; Gastroesophageal reflux disease without esophagitis; Seasonal allergic rhinitis due to pollen; Sternum pain; Dyslipidemia (CMS/HCC); Obesity (BMI 30-39.9); Encounter for long-term current use of medication; Body mass index (BMI) 37.0-37.9, adultStart: 06-11-2023 End: 29-59-4434Ichasdn encounter procedureMARC NADERER [facility] Start: 01-31-2023 End: 84-82-1578Zgn-[facility] MexicoGilamanda [facility] Start: 01-27-2023 End: 65-43-7407Pny-SiteAlan [facility] Start: 01-25-2023 End: 52-15-5124Qyqezwrnur and management of inpatientAlan MANZANO [facility] Start: 01-21-2023 End: 17-12-6006Mpgzleyzwn and management of inpatientKaitlin A Ritter [facility] Start: 07-04-2022 End: 79-52-3707Htabknv encounter procedureMichael R NILL [facility] Start: 06-13-2022 End: 78-61-1170Qjunhzn encounter procedureMichael R NILL [facility] Start: 05-30-2022 End: 04-64-4751Ynespmy encounter procedureMichael R NILL [phone]-FowltOhiohealth Van Wert Hospital [facility] [place] Start: 05-27-2022 End: 19-31-0749waawmspcszCE MARC A NADERERFacility:L8Txefg: 04-24-2022 End: 83-89-9842vbgaxbekljDJGGHI H FAWWADFacility:L7Mkdgb: 11-22-2021 End: 68-05-4216nhglbvetbaKZ MARC A NADERERFacility:I1Dwcha: 08-29-2021 End: 27-19-1977Nqlotwajr department patient visitFantasma Lopez [facility] Procedures DateProcedureProcedure DetailPerforming ClinicianStart: 25-32-0875Onnni wrist complete minimum 3 viewsTomagaly Whitney PA Work Phone: Start: 46-71-0157Kvrwr wrist complete minimum 3 views Jazmin Whitney PA Work Phone: Start: 43-52-5442Puevb wrist complete minimum 3 views Jazmin Whitney PA Work Phone: Start: 78-07-8193XAU HEMOGLOBIN C4TJsokBaltazar Mcghee MD Work Phone: Start: 38-91-0711Jauxdvfwon examination knee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 able to walk slowly w/ FWW this a.m. -CT C-spine, CT chest, A/P, left knee x-ray, left hip/pelvis: no acute process -UA: no acute process -Pain mgt. -Fall precautions 6. Wrist fracture, right (S62.101A: Fracture of unspecified carpal bone, right wrist, initial encounter for closed fracture) 7. Right wrist pain (M25.531: Pain in right wrist) Pt. states ongoing pain 2/2 fall approx. 1 mth ago -Minimally impacted probable subacute distal R radial metaphyseal fx. Mildly displaced small ulnar styloid fx. -Case reviewed w/ Dr. Won Hernadez: non surgical, apply wrist brace and f/u in OP ortho clinic. -Pain mgt. 8. Lactic acidosis (E87.20: Acidosis, unspecified) Resolved at present post IVF 9. Intertrigo (L30.4: Erythema intertrigo) Chronic -Nystatin powder 10. HTN (hypertension) (I10: Essential (primary) hypertension) Pt. states diet controlled -Uncontrolled at present -12: Add losartan 25mg daily - up-titrate as warranted 11. Dyslipidemia (E78.5: Hyperlipidemia, unspecified) Pt. states diet controlled + fish oil -Statin as above 12. Diabetes type 2 (E11.9: Type 2 diabetes mellitus without complications) Accuchecks AC/HS w/ SSI prn -Home regimen: metformin -Resume metformin at dc -Hypoglycemic protocol 13. Depression (F32.A: Depression, unspecified) Stable, denies SI/HI -Citalopram 14. Obesity (E66.9: Obesity, unspecified) BMI 37 + multiple co-morbid conditions = morbid obesity 2/2 excess calories -Educated on need for lifestyle modifications with goal of weight loss as obesity causes a pro- inflamm state resulting in a negative impact on co-morbid conditions. -Patient states that all admitting symptoms have significantly improved and/or resolved. Patient iseating and drinking without complaints, denies being SOB, chest pain, pressure, palpi (more contentnot included)...[facility] CampusComment on above:Result Comment: Electronically Signed By: Roxanna DAY\.br\Date and Time Signed: 09/03/24 12:20 EDT\.br\Electronically Co- Signed By: Moo BENZee\.br\Date and Time Co-Signed: 09/03/24 12:52 EDT\.br\Electronically Co-Signed By: DANIELLE MARRERO Roxanna\.br\Date and Time Co-Signed: 09/03/24 12:58 EDT\.br\Electronically Co-Signed By: Papito Walker DO\.br\Date and Time Co-Signed: 09/03/24 13:32 [id number] Hospital Discharge instructions Patient Education 09/03/2024 09:56:33 Bradycardia, Adult Bradycardia, Adult Bradycardia is a sktpov-ngwy-gmalcb heartbeat. A normal resting heart rate for an adult ranges from60 to 100 beats per minute. With bradycardia, the resting heart rate is less than 60 beats per minute. Bradycardia can prevent enough oxygen from reaching certain areas of your body when you are active.It can be serious if it keeps enough oxygen from reaching your brain and other parts of your body. Bradycardia is not a problem for everyone. For some healthy adults, a slow resting heart rate is normal. What are the causes? This condition may be caused by: A problem with the heart, including: ?A problem with the heart's electrical system, such as a heart block. With a heart block, electrical signals between the chambers of the heart are partially or completely blocked, so they are not able to work as they should. ?A problem with the heart's natural pacemaker (sinus node). ?Heart disease. ?A heart attack. ?Heart damage. ?Lyme disease. ?A heart infection. ?A heart condition that is present at (congenital heart defect). Certain medicines that treat heart conditions. Certain conditions, such as hypothyroidism and obstructive sleep apnea. Problems with the balance of chemicals and other substances, like potassium, in the blood. Trauma. Radiation therapy. What increases the risk? You are more likely to develop this condition if you: Are age 65 or older. Have high blood pressure (hypertension), high cholesterol (hyperlipidemia), or diabetes. Drink heavily, use tobacco or nicotine products, or use drugs. What are the signs or symptoms? Symptoms of this condition include: Light-headedness. Feeling faint or fainting. Fatigue and weakness. Trouble with activity or exercise. Shortness of breath. Chest pain (angina). Drowsiness. Confusion. Dizziness. How is this diagnosed? This condition may be diagnosed based on: Your symptoms. Your medical history. A physical exam. During the exam, your health care provider will listen to your heartbeat and check your pulse. To confirm the diagnosis, your health care provider may order tests, such as: Blood tests. An electrocardiogram (ECG). This test records the heart's electrical activity. The test can show how fast your heart is beating and whether the heartbeat is steady. A test in which you wear a portable device (event recorder or Holter monitor) to record your heart's electrical activity while you go about your day. An exercise test. How is this treated? Treatment for this condition depends on the cause of the condition and how severe your symptoms are. Treatment may involve: Treatment of the underlying condition. Changing your medicines or how much medicine you take. Having a small, battery-operated device called a pacemaker implanted under the skin. When bradycardia occurs, this device can be used to increase your heart rate and help your heart beat in a regularrhythm. Follow these instructions at home: Lifestyle Manage any health conditions that contribute to bradycardia as told by your health care provider. Follow a heart-healthy diet. A supervisor nutritional yeast (dietitian) can help educate you about healthy food options and changes. Follow an exercise program that is approved by your health care provider. Maintain a healthy weight. Try to reduce or manage your stress, such as with yoga or meditation. If you need help reducing stress, ask your health care provider. Do not use any products that contain nicotine or tobacco. These products include cigarettes, chewing tobacco, and vaping devices, such as e-cigarettes. If you need help quitting, ask your health careprovider. Do not use illegal drugs. Alcohol use If you drink alcohol: Limit how much you have to: ?0 1 drink a day for women who are not . ?0 2 drinks a day for men. Know how much alcohol is in a drink. In the [place] one drink equals one 12 oz bottle of beer (355 mL), one 5 oz glass of wine (148 mL), or one 1 oz glass of hard liquor (44 mL). General instructions Take qdre-djw-khmpnit and prescription medicines only as told by your health care provider. Keep all follow-up visits. This is important. How is this prevented? In some cases, bradycardia may be prevented by: Treating underlying medical problems. Stopping behaviors or medicines that can trigger the condition. Contact a health care provider if: You feel light-headed or dizzy. You almost faint. You feel weak or are easily fatigued during physical activity. You experience confusion or have memory problems. Get help right away if: You faint. You have chest pains or an irregular heartbeat (palpitations). You have trouble breathing. These symptoms may represent a serious problem that is an emergency. Do not wait to see if the symptoms will go away. Get medical help right away. Call your local emergency services (911 in the [place] Do not drive yourself to the hospital. Summary Bradycardia is a mazvup-jeoi-wztiic heartbeat. With bradycardia, the resting heart rate is less than 60 beats per minute. Treatment for this condition depends on the cause. Manage any health conditions that contribute to bradycardia as told by your health care provider. Do not use any products that contain nicotine or tobacco. These products include cigarettes, chewing tobacco, and vaping devices, such as e-cigarettes. Keep all follow-up visits. This is important. This information is not intended to replace advice given to you by your health care provider. Make sure you discuss any questions you have with your health care provider. Document Revised: 07/01/2021 Document Reviewed: 07/01/2021 [employer] Patient Education 2023 [employer] 09/03/2024 09:56:33 Core Measures: Stroke (Cerebrovascular Accident) [facility] [place] [facility], ([facility]) Stroke (Cerebrovascular Accident) A stroke is acute of brain tissue, and it is a neurologic emergency. A stroke can cause permanent loss of function of the central nervous system (brain). If the symptoms of a stroke end withoutcomplications in 24 hours, it is diagnosed as a transient ischemic attack (TIA). If the symptoms are not resolved within 24 hours, it is defined as a stroke. CAUSES A stroke is caused by a decrease of oxygen supply to an area of your brain. It is usually the result of a small blood clot or hardening of the arteries. Blockages in, or damage to, the carotid arteries leading to the brain can also cause a stroke. Bleeding in the brain can cause, or accompany, a stroke. SYMPTOMS These symptoms usually develop suddenly (or may be newly present upon awakening from sleep): Loss of vision. Double vision. Confusion. Numbness or weakness on one side of the face or body. Inability to speak (aphasia). DIAGNOSIS Your caregiver can often determine the presence or absence of a stroke based on your symptoms, history, and examination. A CT scan of the brain is usually performed to confirm the stroke, look for causes, and determine the severity. Other tests may be done to find the cause of the stroke, including: An EKG and heart monitoring. An echocardiogram (ultrasound evaluation of the heart). An ultrasound evaluation of your carotid arteries. Determination of blood oxygen level and blood tests. PREVENTION The likelihood of a stroke can be decreased by appropriate treatment of high blood pressure, high cholesterol, diabetes, and by stopping smoking. RISK FACTORS: If you have been told by your doctor or nurse practitioner that you have any of the following risk factors for stroke, work with your health career developer to control them. High Blood Pressure: High blood pressure is one of the main causes of stroke. It is the most important risk factor to control. Take your blood pressure medication, lose weight, increase your activity, and limit your salt intake to help control your blood pressure.Take your your blood pressure and write it down and then take them to your next doctor's appointment. Smoking: If you smoke: QUIT! We can help. Please call [facility] at [phone] ([facility] [place]), or [phone], ext. [phone] Diabetes: Work with your healthcare professional to keep your blood sugar under control. Check yourblood sugar and take the results to your next doctor's visit. Take your medications as directed. Eating a healthy diet and exercising will also help keep your diabetes under control. For information on [facility] please call, . Carotid or other Artery Diseases: The carotid arteries in your neck carry blood to the brain. A stroke can be caused by a blood clot blocking an artery that has been damaged by a fatty buildup insidethe artery wall. Discuss ways to manage this with your health care provider. Atrial Fibrillation (A Fib): In A fib, your heart does not have a normal beat. This may allow clotsto form and puts you at a greater risk for having a stroke. Work with your health care provider to control your A fib. Your doctor may order special medication that helps prevent clots from forming. High blood cholesterol or high blood fats: High cholesterol increases your risk of stroke. Exerciseregularly, but talk to your health care provider first. A diet low in fat and cholesterol can help.If you have any questions about a low fat, low cholesterol diet, you can call our [facility] tax assessor at [phone] Ext. [phone]. The goal for total cholesterol is less than 200, and for LDL or thebad cholesterol is less than 100. Lifestyle Management: You increase your risk of stroke if you are overweight or obese, are not veryactive, or drink too much alcohol. Enjoy a diet rich in fruits and vegetables. Exercise regularly and drink alcohol in moderation or no more than two drinks a day for men and no more than one drink aday for non- women, or don't drink at all. This will help decrease your risk of stroke. Oral Contraceptives: Taking control pills or the pill can be a risk factor for stroke especially if you smoke. Discuss using the oral contraceptives and your risk of stroke with your health career developer. TREATMENT TIME IS OF THE ESSENCE! Medications to dissolve a blood clot can only be used within four and a half hours of the onset of symptoms. After that time, treatment of stroke depends on duration of symptoms, severity, and cause. Medications and diet measures may be used to address diabetes, high blood pr essure, and other risk factors. Physical therapy, speech therapy, and occupational therapy specialists will assess you and work to improve any functions impaired by the stroke. Measures will be takento prevent short and [facility] complications, including aspiration pneumonia, blood clots in the leg s, bedsores, and falls. HOME CARE INSTRUCTIONS Care at home after a stroke can be complicated. Medications Blood thinners may be used to prevent another stroke. Blood thinners need to be used exactly as instructed. Medicines may also be used to control risk factors for a stroke. Be sure you understand all your medication instructions. It is very important to not run out of your medicine. Getmore while you still have a one-week supply. Do not stop taking your medicine without speaking to your healthcare professional. Take all of your medications or an updated list of your medications to all of your doctor's appointments. Physical, occupational, and speech therapy Ongoing therapy is often necessary to maximize recovery after a stroke. If you have been advised to use a walker or a cane, use it at all times. Be sure youkeep your therapy appointments. Diet Certain diets may be prescribed to address high blood pressure, high cholesterol, or diabetes.Foods may need to be a special consistency (soft, pureed, small bites) to avoid food going into your lungs or choking. Home safety A safe home environment is important to reduce the risk of falls. Your caregiver may arrange for specialists to evaluate your home. Grab bars in the bedroom and bathroom are often important. Your caregiver may arrange for special equipment to be used at home, such as raised toilets and a seat for the shower. It s important to know and control your risk factors, but it is also important to recognize the signs and symptoms of stroke/TIA and know what to do: Call 911 if any of these things happen: Sudden numbness or weakness of the face, arm, or leg especially on one side of the body. Sudden confusion, trouble speaking, or understanding. Sudden trouble seeing in one or both eyes. Sudden trouble walking, dizziness, loss of balance or coordination Sudden severe headache with no known cause * It is very important for you to follow-up with your Primary Care Doctor and your Neurologist after you go home. Make sure that you keep your doctor visits. Remember: TIME LOST is BRAIN LOST Resources: for more information on strokes, log onto [email or web address] or www.strokeassociation.org or call the [employer] at [phone]. Revised 03/2018 Follow Up Care 09/01/2024 10:59:12 With:Won Hernadez Address: [address] [address]- Business (1) When:5 to 7 days With:Guilherme Rosa Address: [address] [place] [phone] Business (1) When:7 to 10 days Comments:Call for followup appointment With:Follow up with neurology Address:Unknown When: Unknown Comments:Call for followup appointment With:BALTAZAR MCGHEE Address: [address] [place] [address] Business (1) When: Unknown Comments:Call for followup appointment once discharged from [facility] 06-13-2025 NoteConsultation Note Chief Complaint Fall out of bed Reason for Consultation CVA History of Present Illness 79-year-old woman. She came to the emergency department on September 01, 2024 after a fall out of bed. She hurt her right wrist. X-rays of subsequently shown some nondisplaced fractures there. There was thought that it was a mechanical fall. She had a CT scan that showed some vague hypodensities in the right basal ganglia. MRI discussed below. She has history of fibromyalgia and has become less mobileand less active gradually with time. Deals with a lot of pain, essentially it hurts to touch or move anything. She has diabetes that she keeps well-controlled. Looks to have some hypertension. Has hyperlipidemia. Tries to minimize the medication she is on at home. Mostly on vitamins and supplements. She says she can see okay but sometimes gets prisms and that an eye doctor has suggested to her there might be a vessel problem with her eye. She has some scaling skin around her eyes, her daughter Jeannette says she has dealt with irritation there before. Has required some eyedrops. Her daughter says she has been dealing with a yeast infection that has been seemingly persistent. Hygiene has been an issue because Elina no longer moves around too much. Review of Systems GEN: No fevers or chills. CV/PULM: No chest pain. No shortness of breath. No palpitations. NEURO: No headaches. No loss of vision. She did report occasional double vision but not in recent days and then she talks about some prismatic effect and I do not think she is actually talking about binocular diplopia. No dysphagia. No speech changes. Widespread weakness. No sensory loss. Right wrist pain. Left elbow pain. Physical Exam Vitals & Measurements T: 36.4 ???C(Oral) TMIN: 36.4 ???C(Oral) TMAX: 36.9 ???C(Oral) HR: 46(Monitored) RR: 18 BP: 135/82 SpO2: 98% WT: 94.6 kg GEN: General appearance normal. No distress. Mild swelling at right wrist. Some mild bruises on limbs. Mild scrape left elbow. CARDIO/VASC: Limbs without significant edema and appear well-perfused. PULM: Normal work of breathing. SKIN: Visualized skin is is with age-related findings. Scaly and darkened skin around eyes. MS: Affect is normal. Patient is alert and generally oriented. Normal attention. LANG: Speech is fluent and likely non-dysarthric and baseline. EYES: Pupils equal/reactive/consensual. Gaze appears conjugate. Ocular motility full. No pathologicnystagmus. Visual martinez full. Reading intact. CN: Facial sensation normal. Hearing acuity normal. Face without droop and with normal motor function. MOTOR: Muscle bulk normal. Muscle tone normal. Seems to have diffuse weakness. Pains with movementsthroughout her limbs. She is able to hold both arms up in the air for about 5 seconds, they both drift slightly, and arguably the right upper extremity seems a little weaker than the left. Able to lift either lower extremity but pretty rapidly she let it drift back to the bed. No significant tremors. REFLEXES: Reflexes normoactive throughout. No pathologic reflexes. SENSORY: Light touch normal. Vibratory sensation intact in distal extremities. Pinprick sensation reduced in right lower extremity. CEREBELLAR: No limb ataxia in upper extremities. Date/Time:09/03/24 0940 Level of Consciousness: Alert = 0 Current month and age: Answers both correctly = 0 Open and close eyes/mechanical sound technician release hand: Obeys both correctly = 0 Best gaze: Normal = 0 Visual field testing: No visual field loss = 0 Facial paresis: Normal symmetric movement = 0 Motor function left arm: Drift = 1 Motor function right arm: Drift = 1 Motor function left leg: Drift = 1 Motor function right leg: Drift = 1 Limb ataxia: No ataxia = 0 Sensory: Mild to moderate decrease in sensation = 1 Best language: No aphasia = 0 Dysarthria: Normal articulation = 0 Extinction and inattention: Normal = 0 Total Score (severe deficit >22): 5 Notes: Score is 5 but I do not think it reflects any of her current acute ischemic stroke Assessment/Plan ASSESSMENT: Acute to subacute ischemic stroke, involving the right anterior thalamus (2 x 2 x 1 cm) and a smallfocus in the left superolateral putamen (5 mm diameter). Strokes in these areas would generally be thought to be related to small vessel ischemia (lenticulostriates) and upon review of the CT angiography I think she has mild bilateral rdof-mrrmxep-oirz-right MCA stenosis or subtle irregularity. Transthoracic echocardiogram was with 60 to 65% ejection fraction and looked overall normal. Suspicion for cardioembolic event is low. She has bradycardia but no evidence of concerning dysrhythmia. She has small vessel risk factors of diabetes that she has traditionally controlled well (2023 A1c here was 5.8% and a current A1c is pending), hypertension, hyperlipidemia. Obstructive sleep apnea should be a consideration. Despite those strokes I am not sure if I am finding any symptoms or exam findings that can definitivel (more content not included)...[facility]Comment on above:Result Comment: Electronically Signed By: Yudi Guerrero RN\.br\Date and Time Signed: 09/03/24 10:08 EDT\.br\Electronically Co- Signed By: Jb Robison DO\.br\Date and Time Co-Signed: 09/03/24 10:26 EDT 09-02-2024 NoteProgress Note-Physician Assessment/Plan 1. Fall at home (W19.XXXA: Unspecified fall, initial encounter) Pt. describes mechanical fall w/ fatigue -> got up from bed, had no socks on and slipped on in outdoor rug in her room. -CT C-spine, CT chest, A/P, left knee x-ray, left hip/pelvis: no acute process -Right wrist - pending -UA: no acute process -PT/OT - pending -Fall precautions 2. Bradycardia (R00.1: Bradycardia, unspecified) Appears chronic -Echo - pending -TSH - pending Consult FT/HV: -Cont. tele during hospitalization -Avoid BB -OP sleep study -OP event monitor x 30 days Ordered: Echo Transthoracic Complete 3. CVA (cerebrovascular accident) (I63.9: Cerebral infarction, unspecified) CT head: No acute intracranial hemorrhage. Probable subacute to chronic right basal ganglia infarctsince 2022. -MRI brain: pending -MRA brain/neck, echo - if MRI is + -Hepatic panel - wnl -Asa 81mg daily, atorvastatin 40mg HS -Lipid panel - pending 4. Inability to walk (R26.2: Difficulty in walking, not elsewhere classified) + able to walk slowly w/ FWW this a.m. -Tx. as above 5. Contusion of left hip (S70.02XA: Contusion of left hip, initial encounter) Pain mgt. -Tx. as above 6. Right wrist pain (M25.531: Pain in right wrist) 2/2 fall approx. 1 mth ago -Pain mgt. -Tx. as above 7. Lactic acidosis (E87.20: Acidosis, unspecified) Resolved at present post IVF 8. Intertrigo (L30.4: Erythema intertrigo) Chronic -Nystatin powder 9. HTN (hypertension) (I10: Essential (primary) hypertension) Pt. states diet controlled -Uncontrolled at present -09/02: Add losartan 25mg daily - up-titrate as warranted 10. Dyslipidemia (E78.5: Hyperlipidemia, unspecified) Pt. states diet controlled + fish oil -Statin as above 11. Diabetes type 2 (E11.9: Type 2 diabetes mellitus without complications) Accuchecks AC/HS w/ SSI prn -A1c - pending -Home regimen: metformin -Hold metformin -Hypoglycemic protocol -Consult tax assessor - pending A1c result 12. Depression (F32.A: Depression, unspecified) Stable, denies SI/HI -Citalopram 13. Obesity (E66.9: Obesity, unspecified) BMI 37 + multiple co-morbid conditions = morbid obesity 2/2 excess calories --Educated on need for lifestyle modifications with goal of weight loss as obesity causes a pro- inflamm state resulting in a negative impact on co-morbid conditions. 14. On deep vein thrombosis (DVT) prophylaxis (Z79.899: 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) -Lovenox, early ambulation Orders: aspirin, 81 mg = 1 tab(s), Tab-EC, Oral, Daily, Routine, Start date 09/03/24 9:00:00 EDT, 09/02/24 9:01:00 EDT atorvastatin, 40 mg = 1 tab(s), Tab, Oral, Bedtime, Routine, Start date 09/02/24 21:00:00 EDT, 09/02/24 9:01:00 EDT losartan, 25 mg = 0.5 tab(s), Tab, Oral, Daily, NOW, Start date 09/02/24 9:06:00 EDT, Hold for sbp 110 or less Consult to Cardiology HgbA1c Lipid Panel Referral to [facility] With T4fr Reflex -Plan discussed w/ patient, nursing staff and CRM. This report was transcribed using voice recognition software. Every effort was made to ensure accuracy, however, inadvertently computerized town manager mistakes may be present. Subjective No acute events overnight. Patient states she is very tired and sore all over. She denies CP, pressure, palpitations, N/V, SOB or paresthesia. Review of Systems Constitutional: + fatigue/malaise, states she is sore all over Respiratory: Negative Cardiovascular: Negative. Gastrointestinal: Denies abd pain. Passing flatus. Last BM: 09/01 Musculoskeletal: + Generalized weakness Additional ROS info: Except as noted in the above Review of Systems and in the History of Present Illness all other systems have been reviewed and are negative or noncontributory Objective Vitals & Measurements T: 36.8 ???C(Oral) TMIN: 36.3 ???C(Oral) TMAX: 36.8 ???C(Oral) HR: 50(Monitored) RR: 16 BP: 136/70 SpO2: 94% HT: 160.02 cm WT: 94.9 kg Intake & Output This visit (24 hour periods starting at 07:00 EDT) 09/02/24 * 09/01/24 08/31/24 Total Summary Intake mL -- 605.21 -- Output mL -- 200 -- Fluid Balance -- 405.21 -- Intake (4) Oral Intake mL -- 100 -- Sodium Chloride 0.9% intravenous solution 500 mL mL -- 500.21 -- morphine mL -- 3 -- ondansetron mL -- 2 -- Total -- 605.21 -- Output (1) Urine Voided mL -- 200 -- Total -- 200 -- Counts (0) * This column has not completed the indicated time period. Physical Exam General: Calm, able to communicate needs, NAD Head: Normocephalic/atraumatic Eyes: Pupils equal, round, and reactive to light. Conjunctivae and sclerae normal, and extraocular movements intact HEENT: Mucous membrane moist. Tongue normal Neck: Trachea midline, neck supple, Chest: No chest wall deformity, no chest wall tenderness Lungs: CTA (more content not included)...[facility] CampusComment on above:Result Comment: Electronically Signed By: Roxanna BENZ\.br\Date and Time Signed: 09/02/24 14:05 EDT\.br\Electronically Co-Signed By: Papito Walker DO\.br\Date and Time Co-Signed: 09/02/24 15:39 [id number] Note Echocardiology Procedure Exam Date/Time Accession # Ordering Echo Transthoracic 09/02/2024 10:49 EDT [id number] Roxanna BENZ Complete CPT code [id number] Reason for Exam (Echo Transthoracic Complete) Mitral valve disorder Report [facility] [address] [id number] Adult Echocardiogram Report Name: ELINA PULIDO Study Date: 09/02/2024 09:44 AM BP: 136/70 mmHg Patient Location: [address] [place] [address] 01 HR: 50 : 1945 Gender: Female Height: 63 in Age: 79 yrs Ethnicity: T Weight: 209 lb Reason For Study: Mitral valve disorder BSA: 2.0 m2 History: High Cholesterol,HTN,Diabetes Ordering Physician: Nesha Performed By: Jimena Monsalve, OMEGA, RVT Interpretation Summary The left ventricle is normal in size. Borderline left ventricular hypertrophy. The left ventricular ejection fraction is normal. Ejection Fraction = 60-65%. No obvious regional wall motion abnormalities noted Diastolic dysfunction, Grade II (pseudonormalization pattern). Aortic valve appears to be sclerotic but no stenosis. There is mild aortic insufficiency. There is mild tricuspid regurgitation. Estimated RVSP is 36.4 mmHg. Procedure A complete two-dimensional transthoracic echocardiogram was performed (2D, M- mode, spectral and color flow Doppler). Left Ventricle The left ventricle is normal in size. Borderline left ventricular hypertrophy. The left ventricular ejection fraction is normal. Ejection Fraction = 60-65%. No obvious regional wall motion abnormalities noted. Diastolic dysfunction, Grade II (pseudonormalization pattern). Left Atrium The left atrium is mildly dilated. Echocardiology Report Right Atrium The right atrium is grossly normal. Right Ventricle The right ventricular systolic function is normal. The right ventricle is normal size. Aortic Valve Aortic valve appears to be sclerotic but no stenosis. There is mild aortic insufficiency. Mitral Valve Mitral valve structure is normal. Tricuspid Valve The tricuspid valve is grossly normal. There is mild tricuspid regurgitation. Estimated RVSP is 36.4 mmHg. Pulmonic Valve The pulmonic valve is normal. Trace pulmonic valvular regurgitation. Arteries The aortic root is normal in size. Venous The inferior vena cava was not visualized during the exam. Effusion There is no pericardial effusion. MMode/2D Measurements & Calculations RVDd: 3.8 cm LVIDd: 4.9 cm FS: 42.2 % Ao root diam: 3.0 cm IVSd: 0.98 cm LVIDs: 2.8 cm EDV(Teich): 111.7 ml LVPWd: 0.98 cm ESV(Teich): 30.1 ml Ao root area: 7.0 cm2 EF(Teich): 73.0 % LA dimension: 4.4 cm LVOT diam: 2.3 cm LVLd ap4: 8.0 cm EDV(MOD-sp2): 89.0 ml SV(MOD-sp4): 73.4 ml LVOT area: 4.3 cm2 EDV(MOD-sp4): 106.0 ml ESV(MOD-sp2): 25.3 ml LVLs ap4: 6.1 cm EF(MOD-sp2): 71.6 % ESV(MOD-sp4): 32.6 ml EF(MOD-sp4): 69.2 % TAPSE: 2.2 cm IVC Diam: 1.9 cm RV Base_phl: 2.8 cm RVIDd/LVIDd: 0.78 RV Length_phl: 7.7 cm RV Mid_phl: 2.7 cm EF (MOD-bp): 71.0 % LA Vol Index: 35.2 ml/m2 Doppler Measurements & Calculations MV E max lizette: 86.3 cm/sec MV dec time: 0.21 sec Ao V2 max: 177.0 cm/sec AI max lizette: 455.3 cm/sec MV A max lizette: 69.4 cm/sec Ao max P.5 mmHg AI max P.0 mmHg MV E/A: 1.2 Ao V2 mean: 124.0 cm/sec Echocardiology Report Lat Peak E' Lizette: 8.8 cm/sec Ao mean P.0 mmHg AI dec slope: 148.7 cm/sec2 E/E' Lat: 9.8 Ao V2 VTI: 47.4 cm AI P1/2t: 896.8 msec Med Peak E' Lizette: 5.3 cm/sec E/E' Med: 16.2 SHOSHANA(I,D): 1.9 cm2 SHOSHANA(V,D): 1.9 cm2 LV V1 max P.4 mmHg SV(LVOT): 89.2 ml TR max lizette: 288.8 cm/sec RAP systole: 3.0 mmHg LV V1 mean P.0 mmHg TR max P.4 mmHg LV V1 max: 77.1 cm/sec RVSP(TR): 36.4 mmHg LV V1 mean: 50.3 cm/sec LV V1 VTI: 20.7 cm AV P1/2t-pr: 896.8 msec AV VR: 0.44 SHOSHANA(VTI)/BSA_phl: 0.92 FINAL REPORT Dictated: 09/02/2024 9:44 am Guilherme Rosa MD Signed (Electronic Signature): 09/02/2024 11:10 am Signed by: Guilherme Rosa MD Transcribed by: LAVELLE Technologist: [facility]06-12-2025 Note Progress Note-Physician Assessment/Plan 1. Fall at home (W19.XXXA: Unspecified fall, initial encounter) Pt. describes mechanical fall w/ fatigue -> got up from bed, had no socks on and slipped on in outdoor rug in her room. -CT C-spine, CT chest, A/P, left knee x-ray, left hip/pelvis: no acute process -Right wrist - pending -UA: no acute process -PT/OT - pending -Fall precautions 2. Bradycardia (R00.1: Bradycardia, unspecified) Appears chronic -Echo - pending -TSH - pending Consult FT/HV: -Cont. tele during hospitalization -Avoid BB -OP sleep study -OP event monitor x 30 days Ordered: Echo Transthoracic Complete 3. CVA (cerebrovascular accident) (I63.9: Cerebral infarction, unspecified) CT head: No acute intracranial hemorrhage. Probable subacute to chronic right basal ganglia infarctsince 2022. -MRI brain: pending -MRA brain/neck, echo - if MRI is + -Hepatic panel - wnl -Asa 81mg daily, atorvastatin 40mg HS -Lipid panel - pending 4. Inability to walk (R26.2: Difficulty in walking, not elsewhere classified) + able to walk slowly w/ FWW this a.m. -Tx. as above 5. Contusion of left hip (S70.02XA: Contusion of left hip, initial encounter) Pain mgt. -Tx. as above 6. Right wrist pain (M25.531: Pain in right wrist) 2/2 fall approx. 1 mth ago -Pain mgt. -Tx. as above 7. Lactic acidosis (E87.20: Acidosis, unspecified) Resolved at present post IVF 8. Intertrigo (L30.4: Erythema intertrigo) Chronic -Nystatin powder 9. HTN (hypertension) (I10: Essential (primary) hypertension) Pt. states diet controlled -Uncontrolled at present -09/02: Add losartan 25mg daily - up-titrate as warranted 10. Dyslipidemia (E78.5: Hyperlipidemia, unspecified) Pt. states diet controlled + fish oil -Statin as above 11. Diabetes type 2 (E11.9: Type 2 diabetes mellitus without complications) Accuchecks AC/HS w/ SSI prn -A1c - pending -Home regimen: metformin -Hold metformin -Hypoglycemic protocol -Consult tax assessor - pending A1c result 12. Depression (F32.A: Depression, unspecified) Stable, denies SI/HI -Citalopram 13. Obesity (E66.9: Obesity, unspecified) BMI 37 + multiple co-morbid conditions = morbid obesity 2/2 excess calories --Educated on need for lifestyle modifications with goal of weight loss as obesity causes a pro- inflamm state resulting in a negative impact on co-morbid conditions. 14. On deep vein thrombosis (DVT) prophylaxis (Z79.899: Other [facility] (current) drug therapy) -Lovenox, early ambulation Orders: aspirin, 81 mg = 1 tab(s), Tab-EC, Oral, Daily, Routine, Start date 09/03/24 9:00:00 EDT, 09/02/24 9:01:00 EDT atorvastatin, 40 mg = 1 tab(s), Tab, Oral, Bedtime, Routine, Start date 09/02/24 21:00:00 EDT, 09/02/24 9:01:00 EDT losartan, 25 mg = 0.5 tab(s), Tab, Oral, Daily, NOW, Start date 09/02/24 9:06:00 EDT, Hold for sbp 110 or less Consult to Cardiology HgbA1c Lipid Panel Referral to [facility] With T4fr Reflex -Plan discussed w/ patient, nursing staff and CRM. This report was transcribed using voice recognition software. Every effort was made to ensure accuracy, however, inadvertently computerized town manager mistakes may be present. Subjective No acute events overnight. Patient states she is very tired and sore all over. She denies CP, pressure, palpitations, N/V, SOB or paresthesia. Review of Systems Constitutional: + fatigue/malaise, states she is sore all over Respiratory: Negative Cardiovascular: Negative. Gastrointestinal: Denies abd pain. Passing flatus. Last BM: 09/01 Musculoskeletal: + Generalized weakness Additional ROS info: Except as noted in the above Review of Systems and in the History of Present Illness all other systems have been reviewed and are negative or noncontributory Objective Vitals & Measurements T: 36.8 ???C(Oral) TMIN: 36.3 ???C(Oral) TMAX: 36.8 ???C(Oral) HR: 50(Monitored) RR: 16 BP: 136/70 SpO2: 94% HT: 160.02 cm WT: 94.9 kg Intake & Output This visit (24 hour periods starting at 07:00 EDT) 09/02/24 * 09/01/24 08/31/24 Total Summary Intake mL -- 605.21 -- Output mL -- 200 -- Fluid Balance -- 405.21 -- Intake (4) Oral Intake mL -- 100 -- Sodium Chloride 0.9% intravenous solution 500 mL mL -- 500.21 -- morphine mL -- 3 -- ondansetron mL -- 2 -- Total -- 605.21 -- Output (1) Urine Voided mL -- 200 -- Total -- 200 -- Counts (0) * This column has not completed the indicated time period. Physical Exam General: Calm, able to communicate needs, NAD Head: Normocephalic/atraumatic Eyes: Pupils equal, round, and reactive to light. Conjunctivae and sclerae normal, and extraocular movements intact HEENT: Mucous membrane moist. Tongue normal Neck: Trachea midline, neck supple, Chest: No chest wall deformity, no chest wall tenderness Lungs: CTA (more content not included)...[facility]:Result Comment: Electronically Signed By: Roxanna BENZ\.br\Date and Time Signed: 09/02/24 09:09 EDT\.br\Electronically Co-Signed By: Papito Walker DO\.br\Date and Time Co-Signed: 09/02/24 09:52 [id number] Note Consultation Note Chief Complaint Fall out of bed History of Present Illness 79 yo female with PMH of arthritis, diabetes, cervical and lumbar DJD, depression, dyslipidemia, fibromyalgia, GERD, osteopenia, obesity. Patient presented to the emergency room after a fall. Apparently she slipped out of bed this morning. Family at bedside states that she has fallen in the past. Last fall was about a month ago. She hurt her right wrist at that point in time and has been complaining of right wrist pain since then. She refused to get evaluated at the hospital. She is supposed touse a cane with ambulation, which it sounds like she is pretty good at doing and then uses a walkerif they go out in public. She is right-handed and with hurting her wrist recently she has not been using her cane as much or using it in her left hand instead. This morning when she got up she did not have socks on. She insists on having this outdoor rug in her bedroom which family states is slippery and she just lost her footing on this. She was not using her cane this morning per her. She complains of left knee, left hip, and right wrist pain. Family also states that she is pretty unsteady onher feet at baseline. She tends to get up a lot at night and attempt to do things around the house while they are sleeping. Family denies any dementia. Cardiac consult obtained for bradycardia. I did review her prior EKGs and she did have sinus bradycardia before. Patient denies any prior cardiac history. Her functional status is very limited due toarthritic pain. When seen in the morning she was in no acute distress. She still complaining from some pain in her right wrist. She has not been checked for sleep apnea in the past. Review of Systems As per HPI Physical Exam Vitals & Measurements T: 36.4 ???C(Axillary) TMIN: 36.3 ???C(Oral) TMAX: 36.8 ???C(Oral) HR: 49(Monitored) RR: 16 BP: 156/71 SpO2: 96% HT: 160.02 cm WT: 94.9 kg Pleasant no acute distress. Heart regular rate and rhythm S1-S2. Lungs decreased breath sounds. Abdomen obese Extremities no edema Assessment/Plan 1. Fall at home (W19.XXXA: Unspecified fall, initial encounter) Seems to be mechanical in nature likely multifactorial per primary team. Consider PT OT fall precautions 2. Inability to walk (R26.2: Difficulty in walking, not elsewhere classified) 3. Contusion of left hip (S70.02XA: Contusion of left hip, initial encounter) 4. Right wrist pain (M25.531: Pain in right wrist) 5. Lactic acidosis (E87.20: Acidosis, unspecified) Improving continue IV fluids check echo 6. CVA (cerebrovascular accident) (I63.9: Cerebral infarction, unspecified) 7. Intertrigo (L30.4: Erythema intertrigo) 8. Diabetes type 2 (E11.9: Type 2 diabetes mellitus without complications) Management per primary team. Check hemoglobin A1c if not done recently 9. Dyslipidemia (E78.5: Hyperlipidemia, unspecified) Check lipids if not done recently 10. Depression (F32.A: Depression, unspecified) 11. Obesity (E66.9: Obesity, unspecified) 12. Bradycardia (R00.1: Bradycardia, unspecified) Sinus in nature chronic. I would recommend to continue supportive care. Keep the patient on cardiactelemetry. check thyroid function. She will need to have sleep study as an outpatient. Outpatient heart monitor. May obtain echo, avoid AV node blocking agents. 13 hypertension consider adding low-dose losartan like 25 mg p.o. daily Problem List/Past Medical History Ongoing Anorectal skin [...] arthropathy of right shoulder, Tubal ligation. Medications Inpatient acetaminophen 325 mg Tab, 650 mg= 2 tab(s), Oral, q6hr, PRN Al hydroxide/Mg hydroxide/simethicone 200 mg-200 mg-20 mg/5 mL oral suspension, 30 mL, Oral, q6hr, PRN Artificial Tears, 1 drop(s), OPTH, QID, PRN citalopram 20 mg Tab, 10 mg= 0.5 tab(s), Oral, Once a day (at bedtime) Dextrose 50% Soln-IV, 50 mL, IV Push, Once, PRN enoxaparin 40 mg/0.4 mL SC Brenda, 40 mg= 0.4 mL, SubCutaneous, Daily Floranex oral tablet, 1 tab(s), Oral, Daily Insulin Lispro Sliding Scale, 0-10 Unit(s), SubCutaneous, QIDACHS nystatin Top 100,000 units/g Pwdr, 1 parvez, Topical, TID omega-3 polyunsaturated fatty acids Cap, 1 cap(s), Oral, Daily Pantoprazole 40 m (more content not included)...[facility] Comment on above:Result Comment: Electronically Signed By: Shelley WATERMAN, Guilherme\.dayana\Date and Time Signed: 09/02/24 08:26 [id number] NoteHistory and Physical Chief Complaint Fall out of bed History of Present Illness 79 yo female with PMH of arthritis, diabetes, cervical and lumbar DJD, depression, dyslipidemia, fibromyalgia, GERD, osteopenia, obesity. Patient presented to the emergency room after a fall. Apparently she slipped out of bed this morning. Family at bedside states that she has fallen in the past. Last fall was about a month ago. She hurt her right wrist at that point in time and has been complaining of right wrist pain since then. She refused to get evaluated at the hospital. She is supposed touse a cane with ambulation, which it sounds like she is pretty good at doing and then uses a walkerif they go out in public. She is right-handed and with hurting her wrist recently she has not been using her cane as much or using it in her left hand instead. This morning when she got up she did not have socks on. She insists on having this outdoor rug in her bedroom which family states is slippery and she just lost her footing on this. She was not using her cane this morning per her. She complains of left knee, left hip, and right wrist pain. Family also states that she is pretty unsteady onher feet at baseline. She tends to get up a lot at night and attempt to do things around the house while they are sleeping. Family denies any dementia. ED Course: Vitals OK. Patient with mild bradycardia. Labs unremarkable with exception of slightly elevated lactic acid level of 2.5. UA negative. CT Chest no pneumonia. CT Head shows probable subacute to chronic right basal ganglia infarcts since 01/21/23. XR left knee, hip and pelvis are negative for fracture. She is slightly confused presently due to receiving IV Morphine downstairs. They did have PT see her downstairs and she was able to stand but not ambulate. Review of Systems Constitutional: no fever, no chills, no sweats, + weakness Skin: no jaundice, + rash under pannus, no lesions, no petechiae ENMT: no ear pain, no sore throat, no congestion, no hoarseness Respiratory: no shortness of breath, no cough, no orthopnea, no wheezing Cardiovascular: no chest pain, no palpitations, no edema Gastrointestinal: no nausea, no vomiting, no diarrhea, no abdominal pain Genitourinary: no dysuria, no hematuria Musculoskeletal: + trauma, + joint or muscle pain Neurologic: + headache, no dizziness, no confusion Psychiatric: no depression, no anxiety Heme/Lymph: no bleeding tendency, no bruising tendency Additional ROS info: Except as noted in the above Review of Systems and in the History of Present Illness all other systems have been reviewed and are negative or noncontributory. Scoring Denny Fall Risk Score: 85 High (09/01/24) Physical Exam Vitals & Measurements T: 36.3 ???C(Oral) TMIN: 36.3 ???C(Oral) TMAX: 36.8 ???C(Oral) HR: 52(Monitored) RR: 20 BP: 145/78 SpO2: 95% HT: 160.02 cm WT: 94.8 kg General: NAD Skin: warm, dry, no rash Head: AT/NC Neck: Trachea midline, supple Eye: normal conjunctiva, sclera clear Cardiovascular: regular rate and rhythm, normal peripheral perfusion Respiratory: Lungs CTA, respirations non labored, breath sounds equal, no w/r/r Chest wall: no deformity. no TTP Gastrointestinal: soft, NT, ND, no peritoneal signs Extremities: no deformity, no edema Neurological: oriented, LOC appropriate for age, no focal deficits, normal speech Psychiatric: cooperative, affect appropriate for age, good eye contact Lab Results WBC: 10 E9/L (09/01/24 11:44:00) RBC: 4.7 E12/L (09/01/24 11:44:00) HGB: 13.8 gm/dL (09/01/24 11:44:00) Hct: 40.8 % (09/01/24 11:44:00) MCV: 87.1 fL (09/01/24 11:44:00) MCH: 29.4 pg (09/01/24 11:44:00) MCHC: 33.8 gm/dL (09/01/24 11:44:00) RDW: 14 % (09/01/24 11:44:00) Platelet: 215 E9/L (09/01/24:44:00) MPV: 8 fL (09/01/24:44:00) Neutro Auto: 73.2 % (09/01/24:44:00) Lymph Auto: 18.6 % (09/01/24:44:00) [place] Auto: 6.3 % (09/01/24:44:00) Eos Auto: 1.1 % (09/01/24:44:00) Basophil Auto: 0.8 % (09/01/24:44:00) Neutro Absolute: 7.3 E9/L (09/01/24:44:00) Lymph Absolute: 1.9 E9/L (09/01/24:44:00) [place] Absolute: 0.6 E9/L (09/01/24:44:00) Eos Absolute: 0.1 E9/L (09/01/24:44:00) Basophil Absolute: 0.1 E9/L (09/01/24:44:00) PT: 11.5 second(s) (09/01/24:44:00) INR: 1.03 (09/01/24::00) PTT: 27.9 second(s) (09/01/24:44:00) Glucose Lvl: 102 mg/dL (09/01/24:44:00) BUN: 16 mg/dL (09/01/24:44:00) Creatinine: 0.4 mg/dL Low (09/01/24::00) eGFR: 101 mL/min/1.73 m2 (09/01/24:44:00) BUN/Creat Ratio: 40 High (09/01/24:44:00) Sodium Lvl: 139 mmol/L (09/01/24:44:00) Potassium Lvl: 3.9 mmol/L (09/01/24:44:00) Chloride: 106 mmol/L (09/01/24:44:00) CO2: 25 mmol/L (09/01/24:44:00) AGAP: 12 mEq/L (09/01/24:44:00) Calcium Lvl: 9.5 mg/dL (09/01/24 11:44:00) Alk Phos: 54 Int._Unit/L (09/01/24 11:44:00) ALT: 12 Int._Unit/L (09/01/24 11:44:00) AST: 15 Int._Unit/L (09/01/24 11:44:00) Total (more content not included)...[facility] CampusComment on above: Result Comment: Electronically Signed By: Emir WATERMAN, Sadaf\.dayana\Date and Time Signed: 09/01/24 20:43 [id number] NoteInterdisciplinary Note - PT PT evaluation completed with an AM-PAC six clicks score of 16/24 = SNF. Pt. requires Melody for bed mobility and Melody for sit to stand transfers. Pt. is unable to perform forward ambulation due to weakness and poor balance. Attempted to perform side steps to improve bed positioning, although pt. loses balance and requires Min/Mod A to maintain balance. Pt. is safely assisted back to bed. Recommend SNF based on current functional limitations. PT to follow daily to update recommendations.[facility] History of Present illness Narrative* Baltazar Mcghee MD - 06/22/2024 2:25 PM EDTAssociated Problem(s): Type 2 diabetes mellitus with hyperglycemia, without long-term current use of insulin ([facility]) Reports BS controlled and due for A1C. * Baltazar Mcghee MD - 06/22/2024 2:25 PM EDTAssociated Problem(s): Seasonal allergic rhinitis due to pollen Symptoms controlled with medication and continue. * Baltazar cMghee MD - 06/22/2024 2:25 PM EDTAssociated Problem(s): Osteoarthritis of knees, bilateral Pain stable and continue home PT exercises. * Baltazar Mcghee MD - 06/22/2024 2:24 PM EDTAssociated Problem(s): MDD (major depressive disorder), recurrent episode, mild (HCC) ([facility]) Symptoms worse and try wellbutrin in place of celexa. * Baltazar Mcghee MD - 06/22/2024 2:24 PM EDTAssociated Problem(s): Gastroesophageal reflux disease Symptoms controlled with protonix and continue. * Baltazar Mcghee MD - 06/22/2024 2:24 PM EDTAssociated Problem(s): Class 2 severe obesity due to excess calories with serious comorbidity and body mass index (BMI) of 35.0 to 35.9 in adult ([facility]) Weight loss indicated * Baltazar Mcghee MD - 06/22/2024 1:15 PM EDT Images from the original note were not included. Subjective Patient ID: Elina Pulido is a 79 y.o. female who presents for Follow-up (6m/Vaginal itch). Follow up DM, depression, OA knee, GERD, and allergies. BS controlled around 100-110. Tries to eat well and stick to ADA diet. Denies signs of elevated BS such as polyuria, polyphagia or polydipsia. Depression worse. Not as down or sad but no motivation. Tired all the time and doesn't want to do anything or be around others. Wants to try wellbutrin instead. In counseling which helps. OA knee stable. Occasional pain and popping in knees. Legs weak and unsteady. Performing home PT exercises. GERDcontrolled with protonix. Denies epigastric pain or burning and not waking up with symptoms. Allergies controlled with medication. No congestion or rhinorrhea. No DURON or sinus pressure. Ears not plugged or popping. Review of Systems Respiratory: Negative for cough, shortness of breath and wheezing. Cardiovascular: Negative for chest pain and palpitations. Gastrointestinal: Negative for abdominal pain, diarrhea, nausea and vomiting. Genitourinary: Negative for dysuria. Objective Physical Exam Constitutional: General: She is not in acute distress. Appearance: Normal appearance. HENT: Head: Normocephalic. Right Ear: Tympanic membrane normal. Left Ear: Tympanic membrane normal. Eyes: Extraocular Movements: Extraocular movements intact. Pupils: Pupils are equal, round, and reactive to light. Cardiovascular: Rate and Rhythm: Normal rate and regular rhythm. Heart sounds: No murmur heard. No friction rub. No gallop. Pulmonary: Effort: Pulmonary effort is normal. Breath sounds: Normal breath sounds. No wheezing, rhonchi or rales. Abdominal: General: Bowel sounds are normal. There is no distension. Palpations: Abdomen is soft. Tenderness: There is no abdominal tenderness. There is no guarding or rebound. Musculoskeletal: Cervical back: Neck supple. Right lower leg: No edema. Left lower leg: No edema. Neurological: Mental Status: She is alert. Assessment/Plan Problem List Items Addressed This Visit Gastroesophageal reflux disease Symptoms controlled with protonix and continue. Osteoarthritis of knees, bilateral Pain stable and continue home PT exercises. Type 2 diabetes mellitus with hyperglycemia, without long-term current use of insulin ([facility]) - Primary Reports BS controlled and due for A1C. Relevant Orders Hemoglobin A1c MDD (major depressive disorder), recurrent episode, mild (HCC) ([facility]) Symptoms worse and try wellbutrin in place of celexa. Relevant Medications buPROPion XL (Wellbutrin XL) 150 MG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 mellitus with hyperglycemia, without long-term current use of insulin (HCC)- Primary MDD (major depressive disorder), recurrent episode, mild Primary osteoarthritis of both knees Gastroesophageal reflux disease without esophagitis Esophageal reflux Seasonal allergic rhinitis due to pollen Sternum pain Dyslipidemia Other and unspecified hyperlipidemia Obesity (BMI 30-39.9) Encounter for long-term current use of medication Body mass index (BMI) 37.0-37.9, adult Type 2 diabetes mellitus with hyperglycemia, without long-term current use of insulin (HCC)- Primary MDD (major depressive disorder), recurrent episode, mild Gastroesophageal reflux disease without esophagitis Esophageal reflux Seasonal allergic rhinitis due to pollen Primary osteoarthritis of both knees Class 2 severe obesity due to excess calories with serious comorbidity and body mass index (BMI) of35.0 to 35.9 in adult ([facility]) Type 2 diabetes mellitus with other specified complication (HCC) Hyperlipidemia, unspecified Basal ganglia infarction (HCC)- Primary Unspecified cerebral artery occlusion with cerebral infarction Closed fracture of distal end of right radius with delayed healing, unspecified fracture morphology, subsequent encounter Closed nondisplaced fracture of styloid process of right ulna with routine healing, subsequent encounter Benign essential hypertension Essential hypertension, benign Type 2 diabetes mellitus with hyperglycemia, without long-term current use of insulin (HCC) Dyslipidemia Other and unspecified hyperlipidemia MDD (major depressive disorder), recurrent episode, mild Closed fracture of right distal radius and ulna, with routine healing, subsequent encounter- Primary Weakness of both lower extremities Difficulty walking Difficulty in walking documented in this encounter [facility] HealthcareEvaluation note* Diagnosis Type 2 diabetes mellitus with hyperglycemia, without long-term current use of insulin (HCC)- Primary Chronic neck pain Cervicalgia Sternum pain MDD (major depressive disorder), recurrent episode, mild Primary osteoarthritis of both knees Gastroesophageal reflux disease without esophagitis Esophageal reflux Seasonal allergic rhinitis due to pollen Type 2 diabetes mellitus with hyperglycemia, without long-term current use of insulin (HCC)- Primary MDD (major depressive disorder), recurrent episode, mild Primary osteoarthritis of both knees Gastroesophageal reflux disease without esophagitis Esophageal reflux Seasonal allergic rhinitis due to pollen Sternum pain Dyslipidemia Other and unspecified hyperlipidemia Obesity (BMI 30-39.9) Encounter for long-term current use of medication Body mass index (BMI) 37.0-37.9, adult Type 2 diabetes mellitus with hyperglycemia, without long-term current use of insulin (HCC)- Primary MDD (major depressive disorder), recurrent episode, mild Gastroesophageal reflux disease without esophagitis Esophageal reflux Seasonal allergic rhinitis due to pollen Primary osteoarthritis of both knees Class 2 severe obesity due to excess calories with serious comorbidity and body mass index (BMI) of35.0 to 35.9 in adult ([facility]) Type 2 diabetes mellitus with other specified complication (HCC) Hyperlipidemia, unspecified Basal ganglia infarction (HCC)- Primary Unspecified cerebral artery occlusion with cerebral infarction Closed fracture of distal end of right radius with delayed healing, unspecified fracture morphology, subsequent encounter Closed nondisplaced fracture of styloid process of right ulna with routine healing, subsequent encounter Benign essential hypertension Essential hypertension, benign Type 2 diabetes mellitus with hyperglycemia, without long-term current use of insulin (HCC) Dyslipidemia Other and unspecified hyperlipidemia MDD (major depressive disorder), recurrent episode, mild Closed fracture of right distal radius and ulna, with routine healing, subsequent encounter- Primary Weakness of both lower extremities Difficulty walking Difficulty in walking documented in this encounter [facility]* Diagnosis Type 2 diabetes mellitus with hyperglycemia, without long-term current use of insulin (HCC)- Primary Chronic neck pain Cervicalgia Sternum pain MDD (major depressive disorder), recurrent episode, mild Primary osteoarthritis of both knees Gastroesophageal reflux disease without esophagitis Esophageal reflux Seasonal allergic rhinitis due to pollen Type 2 diabetes mellitus with hyperglycemia, without long-term current use of insulin (HCC)- Primary MDD (major depressive disorder), recurrent episode, mild Primary osteoarthritis of both knees Gastroesophageal reflux disease without esophagitis Esophageal reflux Seasonal allergic rhinitis due to pollen Sternum pain Dyslipidemia Other and unspecified hyperlipidemia Obesity (BMI 30-39.9) Encounter for long-term current use of medication Body mass index (BMI) 37.0-37.9, adult Type 2 diabetes mellitus with hyperglycemia, without long-term current use of insulin (HCC)- Primary MDD (major depressive disorder), recurrent episode, mild Gastroesophageal reflux disease without esophagitis Esophageal reflux Seasonal allergic rhinitis due to pollen Primary osteoarthritis of both knees Class 2 severe obesity due to excess calories with serious comorbidity and body mass index (BMI) of35.0 to 35.9 in adult ([facility]) Type 2 diabetes mellitus with other specified complication (HCC) Hyperlipidemia, unspecified Basal ganglia infarction (HCC)- Primary Unspecified cerebral artery occlusion with cerebral infarction Closed fracture of distal end of right radius with delayed healing, unspecified fracture morphology, subsequent encounter Closed nondisplaced fracture of styloid process of right ulna with routine healing, subsequent encounter Benign essential hypertension Essential hypertension, benign Type 2 diabetes mellitus with hyperglycemia, without long-term current use of insulin (HCC) Dyslipidemia Other and unspecified hyperlipidemia MDD (major depressive disorder), recurrent episode, mild Closed fracture of right distal radius and ulna, with routine healing, subsequent encounter- Primary documented in this encounter [facility]* Diagnosis Onset Date Resolution Status Admit Date Medicare annual wellness visit, chanda sierra acuteOctober 2024 1:07pm [facility] Work Phone: Evaluation note* Diagnosis Type 2 diabetes mellitus with hyperglycemia, without long-term current use of insulin (HCC)- Primary Chronic neck pain Cervicalgia Sternum pain MDD (major depressive disorder), recurrent episode, mild Primary osteoarthritis of both knees Gastroesophageal reflux disease without esophagitis Esophageal reflux Seasonal allergic rhinitis due to pollen Type 2 diabetes mellitus with hyperglycemia, without long-term current use of insulin (HCC)- Primary MDD (major depressive disorder), recurrent episode, mild Primary osteoarthritis of both knees Gastroesophageal reflux disease without esophagitis Esophageal reflux Seasonal allergic rhinitis due to pollen Sternum pain Dyslipidemia Other and unspecified hyperlipidemia Obesity (BMI 30-39.9) Encounter for long-term current use of medication Body mass index (BMI) 37.0-37.9, adult Type 2 diabetes mellitus with hyperglycemia, without long-term current use of insulin (HCC)- Primary MDD (major depressive disorder), recurrent episode, mild Gastroesophageal reflux disease without esophagitis Esophageal reflux Seasonal allergic rhinitis due to pollen Primary osteoarthritis of both knees Class 2 severe obesity due to excess calories with serious comorbidity and body mass index (BMI) of35.0 to 35.9 in adult Type 2 diabetes mellitus with other specified complication (HCC) Hyperlipidemia, unspecified Basal ganglia infarction (HCC)- Primary Unspecified cerebral artery occlusion with cerebral infarction Closed fracture of distal end of right radius with delayed healing, unspecified fracture morphology, subsequent encounter Closed nondisplaced fracture of styloid process of right ulna with routine healing, subsequent encounter Benign essential hypertension Essential hypertension, benign Type 2 diabetes mellitus with hyperglycemia, without long-term current use of insulin (HCC) Dyslipidemia Other and unspecified hyperlipidemia MDD (major depressive disorder), recurrent episode, mild Closed fracture of right distal radius and ulna, with routine healing, subsequent encounter- Primary Weakness of both lower extremities Difficulty walking Difficulty in walking documented in this encounter [facility]ospital course Narrative No data available for this section [facility] No data available for this section [facility] [place] Progress note No data available for this section [facility] [place] Reason for referral (narrative)No reason for referral information availableAultman [facility] Work Phone: Reason for visit Narrative* Rehabilitation - Outpatient (Routine) - AuthorizedSpecialtyDiagnoses / ProceduresReferred By ContactReferred To ContactPhysical Therapy Diagnoses Closed fracture of right distal radius and ulna, with routine healing, subsequent encounter Procedures [place] OFFICE/OUTPATIENT NEW HIGH MDM 60 MINUTES Jazmin Whitney, PA [address] [place] [address] Phone: tel: fax: Malik Alejandro, PT [address] [place] [address] Phone: tel: fax: Referral IDStatusReasonStart DateExpiration DateVisits RequestedVisits [id number] [facility] for [facility] N[facility]ative* Rehabilitation - Outpatient (Routine) - AuthorizedSpecialtyDiagnoses / ProceduresReferred By ContactReferred To ContactPhysical Therapy Diagnoses Closed fracture of right distal radius and ulna, with routine healing, subsequent encounter Procedures [place] OFFICE/OUTPATIENT NEW HIGH MDM 60 MINUTES Jazmin Whitney, JUSTIN [address] [place] [address] Phone: tel: fax: Malik Alejandro, PT [address] [place] [address] Phone: tel: fax: Referral IDStatusReasonStart DateExpiration DateVisits RequestedVisits [id number] Specialty Services Required [id number] [facility] Healthcare Summary Purpose Family History No Family History [...] History Records FoundNo Family History Records Found No data available for this section No Family History Records FoundNo Family History Records FoundNo Family History Records FoundNo Family History Records FoundNo Family History Records FoundNo Family History Records FoundNo Family History Records FoundNo Family History Records FoundNo Family History Records FoundNo Family History Records FoundNo Family History Records FoundNo Family History Records FoundNo Family History Records Found No data available for this section No data available for this section No data available for this section No Family History Records FoundNo Family History Records FoundNo Family History Records FoundNo Family History Records Found Advance Directives Advance Directive Response Recorded Date/ Time Advance Directives No December 27, 2024 12:02pm Chief Complaint and Reason for Visit Chief Complaint Admit Date December 13, 2024 4:05pm Reason for Visit Admit Date Medicare annual wellness visit, subseque nt December 27, 2024 1:07pm Chief Complaint Admit Date January 11, 2025 3 :30pm stomach pain, not eating January 27 025 1:03pm Reason for Visit Admit Date Medicare annual wellness visit, subseque nt December 27, 2024 1:07pm Benign essential hypertension January 272024 1:03pm Early satiety January 27, 2025 1 :03pm Gastroesophageal reflux disease January 27, 2025 1:03pm Type 2 diabetes mellitus wit h hyperglycemia, without long-term current use January 27, 2025 1:03pm Additional Source Comments Patient Care team informatio n (unrecognized section and content) Team MemberRelationshipSpecialtyStart DateEnd Date Baltazar Mcghee MD [address] [place] [address] [facility] - [facility]04/22/23Team MemberRelationshipSpecialtyStart DateEnd Date Baltazar Mcghee MD [address] [place] [address] PCP - Generalmily Medicine04/22/23Team MemberRelationshipSpecialtyStart DateEnd Date Baltazar Mcghee MD [address] [place] [place] [address] PCP - GeneralFamily Medicine04/22/23Team MemberRelationshipSpecialtyStart DateEnd Date Baltazar Mcghee MD [address] [place] [address] PCP - GeneralFamily Medicine04/22/23Team MemberRelationshipSpecialtyStart DateEnd Date Baltazar Mcghee MD [address] [place] [address] PCP - GeneralFamily Medicine04/22/23Team MemberRelationshipSpecialtyStart DateEnd Date Baltazar Mcghee MD [address] [place] [address] PCP - GeneralFamily Medicine04/22/23Team MemberRelationshipSpecialtyStart DateEnd Date Baltazar Mcghee MD [address] [place] [address] PCP - GeneralFamily Medicine04/22/23 Baltazar Mcghee MD [address] [place] [address] PCP - [employer]03/24/24Team MemberRelationshipSpecialtyStart DateEnd Date Baltazar Mcghee MD [address] [place] [address] PCP - GeneralFamily Medicine04/22/23 Baltazar Mcghee MD [address] [place] [address] PCP - [employer]1/1/25Team MemberRelationshipSpecialtyStart DateEnd Date Baltazar Mcghee MD [address] [place] [address] PCP - GeneralFamily Medicine04/22/23 Baltazar Mcghee MD [address] [place] [address] PCP - [employer]03/24/24Team MemberRelationshipSpecialtyStart DateEnd Date Baltazar Mcghee MD [address] [place] [address] [facility]/22/23 Baltazar Mcghee MD [address] [place] [address] PCP - [employer]03/24/24Team MemberRelationshipSpecialtyStart DateEnd Date Baltazar Mcghee MD [address] [place] [address] PCP - Generalmily Medicine04/22/23 Baltazar Mcghee MD [address] [place] [address] PCP - [employer]03/24/24Team MemberRelationshipSpecialtyStart DateEnd Date Baltazar Mcghee MD [address] [place] [address] PCP - Generalmi Medicine04/22/23 Baltazar Mcghee MD [address] [place] [address] PCP - [employer]03/24/24Team MemberRelationshipSpecialtyStart DateEnd Date Baltazar Mcghee MD [address] [place] [address] PCP - Generalmily Medicine04/22/23 Baltazar Mcghee MD [address] [place] [address] PCP - [employer]03/24/24Team MemberRelationshipSpecialtyStart DateEnd Date Baltazar Mcghee MD [address] [place] [address] PCP - [facility] Medicine04/22/23 Baltazar Mcghee MD [address] [place] [address] PCP - [employer]03/24/24Team MemberRelationshipSpecialtyStart DateEnd Date Baltazar Mcghee MD [address] [place] [address] [facility] - [facility]04/22/23 Baltazar Mcghee MD [address] [place] [address] PCP - [employer]03/24/24Team MemberRelationshipSpecialtyStart DateEnd Date Baltazar Mcghee MD [address] [place] [address] PCP - [facility]04/22/23 Baltazar Mcghee MD [address] [place] [address] PCP - [facility]03/24/24Team MemberRelationshipSpecialtyStart DateEnd Date Baltazar Mcghee MD PCP - [facility]04/22/23 Baltazar Mcghee MD [address] [place] [address] PCP - [facility]03/24/24Team MemberRelationshipSpecialtyStart DateEnd Date Baltazar Mcghee MD PCP - [facility]04/22/23 Baltazar Mcghee MD [address] [place] [address] PCP - [facility]03/24/24Team MemberRelationshipSpecialtyStart DateEnd Date Baltazar Mcghee MD [address] [place] [address] PCP - [facility]03/24/24 Baltazar Mcghee MD [address] [place] [address] PCP - [facility]12/01/24 Team Status: Active Member Role Status Dates Baltazar Mcghee MD Primary Care Provider Active Team Status: Active Member Role Status Dates NON STAFF Primary Care Provider Active Start: December 13, 2024 Mickie Melendez ProviderActiveStart: December 13, 2024 Team Status: Inactive Member Role Status Dates Baltazar Mcghee MD Primary Care Provider Active S tart: December 27, 2024 End: December 27, 2024[facility] Mickie Mcghee ProviderActiveStart: December 27, 2024 End: December 27, 2024Team MemberRelationshipSpecialtyStart DateEnd Date Baltazar Mcghee MD [address] [place] [address] PCP - [facility]03/24/24 Baltazar Mcghee MD [address] [place] [address] PCP - [facility]12/01/24Team MemberRelationshipSpecialtyStart DateEnd Date Baltazar Mcghee MD [address] [place] [address] PCP - [facility]03/24/24 Baltazar Mcghee MD [address] [place] [address] PCP - [facility] Medicine12/01/24Team MemberRelationshipSpecialtyStart DateEnd Date Baltazar Mcghee MD [facility] - [facility] Baltazar Mcghee MD [address] [place] [address] PCP - [employer]03/24/24 Baltazar Mcghee MD [address] [place] [address] [facility]12/01/24 Team Status: Active Member Role/Relationship Status Dates Baltazar Mcghee MD Primary Care Provider Active Team Status: Inactive Member Role/Relationship Status Dates Baltazar Mcghee MD Primary Care Provider Active S tart: December 27, 2024 End: December 27, 2024Mar Mickie Mcghee ProviderActiveStart: December 27, 2024 End: December 27, 2024 Team Status: Active Member Role/Relationship Status Dates NON STAFF Primary Care Provider Active Start: January 11, 2025 Mickie Melendez ProviderActiveStart: January 11, 2025 Team Status: Inactive Member Role/Relationship Status Dates Baltazar Mcghee MD Primary Care Provider Active S tart: January 27, 2025 End: January 27, 2025[facility] CenterMickie Bone ProviderActiveStart: January 27, 2025 End: January 27, 2025 INFORMATION SOURCE (unrecogn ized section and content) DATE CREATED AUTHOR 06/01/2022 [facility] DATE CREATED AUTHOR AUTHOR'S ORGANIZ ATION 09/03/2024 [facility] DATE CREATED AUTHOR AUTHOR'S ORGANIZ ATION 09/04/2024 [facility] DATE CREATED AUTHOR AUTHOR'S ORGANIZ ATION 09/05/2024 [facility] DATE CREATED AUTHOR AUTHOR'S ORGANIZ ATION 09/06/2024 [facility] DATE CREATED AUTHOR AUTHOR'S ORGANIZ ATION 09/14/2024 [facility] DATE CREATED AUTHOR AUTHOR'S ORGANIZ ATION 10/07/2024 [facility] DATE CREATED AUTHOR AUTHOR'S ORGANIZ ATION 12/14/2024 [facility] DATE CREATED AUTHOR AUTHOR'S ORGANIZ ATION 12/30/2024 [facility] EPIC Reason for Visit (unrecogniz ed section and content) RmjieeLsxqkdcnLagcem-gjMeldadYncnlgcoQgnocd-ym9wRwqidqTpuwgmruCdrkqw-up6mVaginal itchReasonCommentsFractureReasonOnset DateCommentsMed Gxdfvm0209/15/2024Reason CommentsFollow-upHospital f/uReasonCommentsFracture Goals (unrecognized section and content) Goals may be documented in a n alternate section FOR RECORDS PERTAINING TO PATIENTS WHO ARE [...] BE BASED ON THE PRIMARY CLINICAL RECORDS. [facility]. provides no warranty or guarantee of the accuracy or completeness of information in this document.
[2025-02-10 08:13] LABS: Hematocrit 42.8 % (36.0-48.0); Hemoglobin 14.1 g/dL (12.0-16.0); Immature Granulocytes Abs Auto 0.02 10^3/uL (0.00-0.03); Immature Granulocytes Pct Auto 0.3 % (0.0-0.5); Lymphocytes Absolute Auto 3.2 10^3/uL (1.2-3.8); Mean Corpuscular HGB Conc 32.9 g/dL (29.9-35.2); Mean Corpuscular Hemoglobin 30.1 pg (26.7-34.0); Mean Corpuscular Volume 91.5 fL (81.0-99.0); Platelet Count 224 10^3/uL (150-450); Red Blood Count 4.68 10^6/uL (4.20-5.40); White Blood Count 8.0 10^3/uL (4.0-11.0)
--- NOTE | 2025-02-10 08:30 | NM_ITS ---
[address] [address] Patient Name: MARGY PULIDO MRN: [id number] date: 1945 Sex: F Assigned Patient Location: LAB Current Patient Location: LAB Accession/Order Number: [id number] Exam Date: 02/10/2025 08:30 Report Date: 02/10/2025 22:40 At the request of: XENA MCGHEE MD Procedure: NM gastric emptying study Nuclear medicine imaging for gastric emptying TECHNIQUE: Patient ingested eggs containing 0.9 mCi of technetium 99m sulfur colloid. Planar imaging performed. Percent retention calculations obtained. No comparison The 30 minute percent retention 94%. One-hour percent retention 88%. 2 hour percent retention 53%. 3 hour percent retention 45%. 4 hour percent retention 25%. NM/NM gastric emptying study IMPRESSION: Delayed gastric emptying. Impression dictated by: Alan Mendosa M.D. 02/10/2025 10:40 PM Dictation Location[facility] Electronically authenticated by: [id number] Y Date: 02/10/2025 22:40
[2025-02-10 08:44] LABS: Microalbum Creatinine Ratio Ur 5.8 mg/g (0.0-29.9)
[2025-02-10 11:36] LABS: Anion Gap 12.9; Aspartate Amino Transferase 17 U/L (15-37); Blood Urea Nitrogen 15.0 mg/dL (7.0-18.0); Calcium 9.1 mg/dL (8.5-10.1); Carbon Dioxide 27.0 mmol/L (21.0-32.0); Chloride 106 mmol/L (98-107); Estimated GFR (African America >60 (>=60 mL/min/1.73m^2); Estimated GFR (Non-African Ame >60 (>=60 mL/min/1.73m^2); Glucose 101 mg/dL (74-106); Potassium 3.9 mmol/L (3.5-5.1); Sodium 142 mmol/L (136-145)
[2025-02-10 11:37] LABS: Alanine Aminotransferase 20 U/L (14-59); Albumin Globulin Ratio 0.8; Albumin Level 3.5 g/dL (3.4-5.0); Alkaline Phosphatase 70 U/L (46-116); Cholesterol 221 mg/dL (<=200); Globulin 4.3 g/dL; HDL Cholesterol 44 mg/dL (40-60); Thyroid Stimulating Hormone 1.670 uIU/mL (0.358-3.740); Total Protein 7.8 g/dL (6.4-8.2); Triglycerides 175 mg/dL (<=150); VLDL CHOLESTEROL 35.0 mg/dL
== END 2025-02-10 07:51 | disposition home or self-care (01) ==
LOC: LAB 07:50
PROVIDERS: PCP Family Medicine; Visit Provider Family Medicine
DX: E11.65 Type 2 diabetes mellitus with hyperglycemia (principal); Z79.899 Other long term (current) drug therapy; E78.5 Hyperlipidemia, unspecified; E66.812 Obesity, class 2; Z68.35 Body mass index [BMI] 35.0-35.9, adult; R68.81 Early satiety
CPT/HCPCS: 36415; 78264; 80053; 80061; 82043; 82570; 83036; 84443; 85025; A9541